=== PATIENT | female | born 1935 | race Caucasian/White ===

== ENCOUNTER 2020-09-25 12:43 | Observation (INO) | payer MEDICARE, OTHER, SELFPAY ==
[2020-09-25] VITALS (10 sets, daily range): BP systolic 138–187; BP diastolic 51–85; PULSE 48–62; RESP 16–18; TEMP 36.4–36.9; O2SAT 96–100; BMI 31.3
--- NOTE | 2020-09-25 13:00 | ECG_ITS ---
Test Reason : DIZZ Blood Pressure : / mmHG Vent. Rate : 047 BPM Atrial Rate : 047 BPM P-R Int : 148 ms QRS Dur : 116 ms QT Int : 468 ms P-R-T Axes : 014 -30 019 degrees QTc Int : 414 ms Sinus bradycardia Left axis deviation Incomplete left bundle branch block ST & T wave abnormality, consider anterolateral ischemia Abnormal ECG When compared with ECG of 29-FEB-2020 15:32, No significant changes seen Referred By: Mary Monae Electronically Signed By:NABEEL OTOOLE MD
--- NOTE | 2020-09-25 13:00 | XR_ITS ---
EXAMINATION: XR CHEST CLINICAL INFORMATION: Syncope COMPARISON: Previous chest x-ray February 2018 TECHNIQUE: Frontal view of the chest was obtained. FINDINGS: The cardiac and mediastinal contours are stable. The lungs are clear. There is no pleural effusion or pneumothorax. There are degenerative changes of the spine. XR/XR chest 1V IMPRESSION: No evidence for acute disease in the chest.
--- NOTE | 2020-09-25 13:01 | CT_ITS ---
EXAMINATION: CT HEAD WITHOUT CONTRAST CLINICAL INFORMATION: Syncope, secondary fall, trauma COMPARISON: CT head noncontrast 02/29/2020 TECHNIQUE: Contiguous axial imaging was performed from the skull base to vertex without intravenous administration of contrast. Additional 2-D coronal and sagittal reformatted images are generated on the CT workstation and uploaded to PACS. This CT examination was performed using dose optimization techniques as appropriate, variously including the following: *Automated exposure control *Adjustment of mA and/or kV according to patient size (this includes techniques or standardized protocols for targeted exams where dose is matched to indication/reason for exam; i.e. extremities or head) *Use of iterative reconstruction technique DLP: 686 mGy-cm FINDINGS: There is no intracranial hemorrhage, hematoma, or extra-axial fluid collection. The ventricles are normal in size. There is no hydrocephalus, edema, or mass effect. The coronel-white matter again shows some periventricular white matter gliosis adjacent to the frontal horns and ventricular atria similar to prior exam. There is no visible acute territorial infarct or mass lesion. The orbits are unremarkable. The calvarium appears intact. There is no pneumocephalus or orbital emphysema. The visualized sinuses and middle ears and mastoid air cells show no significant mucosal thickening. There are no air-fluid levels. CT/CT head/brain wo con IMPRESSION: No acute intracranial abnormality.
--- NOTE | 2020-09-25 13:02 | ED.SYNCOPE ---
HPI - Syncope General Chief Complaint: Altered Mental Status Stated Complaint: SYNCOPE Time Seen by Provider: 09/25/20 12:45 Source: patient and EMS Mode of arrival: EMS Limitations: no limitations History of Present Illness HPI narrative: 85 yo female with past medical history of dementia, mood disorder, hypothroidism, irregular heart beat, hypertension, GERD, high cholesterol, RLS here with syncope. Per family they were in another room when they heard a thump. They found the patient lying on the ground. The patient tells me she felt faint and then has no other memory of what happened. She does not remember if she had any headache, palpitations, chest pain or shortness of breath prior to the fall. She has no complaints now. Per family the patient lives at home with her . He has difficulty seeing and the patient has dementia. There has been concern in the past that they may need additional help in the home. The daughter tells me that she is also worried the patient may be getting over or under medicated as she often finds loose pills around the home. MD complaint: felt faint Prodromal symptoms: lightheaded Witnessed: No Context: during exertion Injuries sustained associated with event: none Current symptoms: none Treatments prior to arrival: none Related Data Home Medications Medication Instructions Recorded Confirmed amlodipine 5 mg PO BEDTIME 09/25/20 09/25/20 aspirin 81 mg PO DAILY 09/25/20 09/25/20 veclcnrfkk-mehrlaxjwirbt-gqlf 1 tab PO Q4H PRN 09/25/20 09/25/20 [Fioricet] cholecalciferol (vitamin D3) 25 mcg PO DAILY 09/25/20 09/25/20 [Vitamin D3] divalproex 250 mg PO BID 09/25/20 09/25/20 donepezil 10 mg PO BEDTIME 09/25/20 09/25/20 ginkgo biloba 120 mg PO BID 09/25/20 09/25/20 glucosamine-chondroitin 1 cap PO DAILY 09/25/20 09/25/20 levothyroxine 112 mcg PO DAILY@0630 09/25/20 09/25/20 losartan 100 mg PO DAILY 09/25/20 09/25/20 melatonin 30 mg PO BEDTIME 09/25/20 09/25/20 memantine 10 mg PO BID 09/25/20 09/25/20 metoprolol tartrate 100 mg PO BID 09/25/20 09/25/20 multivitamin 1 tab PO DAILY 09/25/20 09/25/20 omeprazole 20 mg PO BID@0630,1630 09/25/20 09/25/20 quetiapine 25 mg PO DAILY 09/25/20 09/25/20 quetiapine 100 mg PO BEDTIME 09/25/20 09/25/20 ropinirole 1.5 mg PO BEDTIME 09/25/20 09/25/20 sertraline 50 mg PO BEDTIME 09/25/20 09/25/20 simvastatin 20 mg PO BEDTIME 09/25/20 09/25/20 Allergies Allergy/AdvReac Type Severity Reaction Status Date / Time penicillin V Allergy Unknown swelling Verified 10/20/18 00:00 Penicillins [PENICILLINS] Allergy Unknown UNKNOWN Unverified 06/21/20 14:36 procaine [From NOVOCAIN] Allergy Unknown UNKNOWN Unverified 06/21/20 14:36 Novocain Allergy Unknown swelling Uncoded 10/20/18 00:00 Review of Systems Review of Systems: Yes all other systems are reviewed and are negative Constitutional: Constitutional: Reports no additional constitutional complaints, Denies body ache(s), Denies chills, Denies fever(s), Denies headache(s) and Denies weakness Eyes: Eyes: Reports no additional eye complaints and Denies change in vision ENT: Reports system reviewed and no additional complaints, except as documented, Denies dizziness, Denies headache(s), Denies nasal congestion, Denies nasal discharge and Denies neck pain Cardiovascular: Cardiovascular: Reports no additional cardiovascular complaints, Denies chest pain, Denies leg edema and Denies dyspnea Respiratory: Respiratory: Reports no additional respiratory complaints, Denies cough and Denies dyspnea Gastrointestinal: Gastrointestinal: Reports no additional gastrointestinal complaints, Denies abdominal pain, Denies diarrhea, Denies nausea and Denies vomiting Genitourinary: Genitourinary: Reports no additional female genitourinary complaints and Denies urinary incontinence Musculoskeletal: Musculoskeletal: Reports no additional musculoskeletal complaints, Denies back pain, Denies arthralgias, Denies joint swelling, Denies neck pain, Denies numbness and Denies tingling Integumentary/Breasts: Skin/Breast: Reports system reviewed and no additional complaints, except as docu and Denies rash Neurologic: Reports system reviewed and no additional complaints, except as documented, Denies Abnormal speech present, Denies dizziness, Denies headache(s), Denies numbness, Denies tingling and Denies weakness Comments: lightheaded PMFSH Past Medical History Medical History (Updated 09/25/20 @ 17:17 by Mary Monae NP) Anxiety Dementia GERD (gastroesophageal reflux disease) High cholesterol Hypertension Hypothyroidism Mood disorder RLS (restless legs syndrome) Social History Social History Advance Directives: No Advance Directives Information Provided: No Physical Exam Vital Signs: Vital Signs: Last Vital Signs Temp 97.7 F 09/25/20 17:04 Pulse 48 L 09/25/20 17:04 Resp 16 09/25/20 15:12 BP 142/62 H 09/25/20 17:04 Pulse Ox 98 09/25/20 17:04 Body Mass Index 31.3 Const: Other: Drowsy but answers questions and opens eyes when called General: cooperative, healthy appearing, comfortable and no acute distress Orientation/consciousness: patient oriented x3 Limitations: no limitations HENMT: Head: Yes normal to inspection Ears: hearing grossly normal bilaterally General nose exam: Normal external nose present Face and sinus: Yes normal facial exam Mouth: Normal oral and palatal mucosa present Throat: Yes posterior oropharynx normal Eyes: General: appearance normal, both eyes and all related structures Pupils: Equal, round and reactive pupils present Neck: Neck: Yes normal visual inspection Chest: Chest palpation & inspection: normal inspection of the chest Resp: Effort & Inspection: normal respiratory effort Auscultation: clear to auscultation bilaterally Cardio: Rate: regular rate Rhythm: regular rhythm Peripheral pulses: Peripheral pulses 2+ throughout GI: Inspection: Yes normal to inspection Palpation (GI): Soft to palpation and nontender Auscultation: normal bowel sounds Back/Spine/Pelvis: Thoracic/Lumbar Spine: thoracic and lumbar spine normal to inspection Skin: General skin exam: no rashes or lesions noted Neuro: General: patient oriented x3, no focal motor deficits, normal sensation to monofilament and Unable to assess gait Cranial nerves: Yes CN's II-XII intact bilaterally, Yes Equal, round and reactive pupils present, Yes Bilaterally intact EOM present, Yes Nystagmus not present, Yes Normal facial strength present and Yes Midline tongue present Cognition (Neuro): normal cognition Speech: No Abnormal speech present Gait exam (Neuro): Unable to assess gait Motor exam (neuro): 5/5 motor strength present throughout Sensory Exam: Normal double simultaneous stimulation for sensation Deep tendon reflexes (DTR's): Right patellar reflex intensity grade: 2+ and Left patellar reflex intensity grade: 2+ Extrem: General: Yes normal to inspection Course Course Course Narrative: 85-year-old female here with reported syncopal episode. On arrival the patient is drowsy but arouses to verbal. She is neurologically intact with no complaints. She tells me she felt faint and then does not recall what happened. She was found by family on the ground after hearing a fall. Also concern from family that patient may need either additional help in the home or placement. Concern for medication management and over vs undermedication. Will need labs, UA, EKG, chest x-ray, CT head and neck. Will likely need admission. 1405-EKG shows diffuse T wave inversions. Add on d dimer to r/o PE. Troponin pending. No chest pain. 1512-elevated D-dimer. CTA to rule out PE ordered. Troponin initially 8.0. Repeat 3 hour troponin ordered. 1720-CTA negative. Repeat troponin pending. UA and orthostatics negative. Patient will need admission for syncope workup. Discussed with Elizabeth HATCH who accepted admission. Family was updated. MDM - Syncope MDM Narrative Medical decision making narrative: Orthostatic hypotension, ACS, CVA vs ICH, anemia, electrolyte abnormality, polypharmacy, pe Less likely PE with negative CTA, Less likely CVA with no neurological deficits. Less likely ICH with negative CT head. Less likely anemia with normal labs. Less likely electrolyte abnormality with normal labs. Less likely ACS with unchanged EKG, no reports of chest pain and troponin x2 are unchanged. Could also consider polypharmacy as there was concern from family. Medical Records Attestation: I reviewed the patient's medical records. Lab Data Attestation: I reviewed the patient's lab results. Result diagrams: 09/25/20 13:44 09/25/20 13:44 Labs: Lab Results 09/25/20 09/25/20 12 Range/Units 13:44 13:44 13:44 WBC 6.0 (4.8-10.8) X10*3/uL RBC 4.12 L (4.20-5.50) X10*6/uL Hgb 12.6 (12.0-16.0) g/dl Hct 37.4 (37-47) % MCV 90.8 (80-98) fL MCH 30.6 (27.0-33.0) pg MCHC 33.7 (31.0-35.0) g/dl RDW 13.5 (11.0-16.0) % Plt Count 220 (160-400) X10*3/uL MPV 9.6 (9.4-12.3) fL Immature Gran % (Auto) 0.2 (0.0-0.4) % Neut % (Auto) 61.8 (45-73) % Lymph % (Auto) 21.0 (20-40) % [place] % (Auto) 9.4 (2-11) % Eos % (Auto) 6.9 H (0-4) % Baso % (Auto) 0.7 (0-2) % Lymph # (Auto) 1.3 (1.2-4.9) X10*3/uL [place] # (Auto) 0.6 (0.1-1.2) X10*3/uL Eos # (Auto) 0.4 (0.0-0.4) X10*3/uL Baso # (Auto) 0.0 (0.0-0.2) X10*3/uL Abs Immat Gran (auto) 0.01 (0.00-0.03) X10*3/uL Absolute Neuts (auto) 3.7 (2.0-8.3) X10*3/uL Absolute Nucleated RBC 0.000 (0.0-0.012) X10*3/uL Nucleated RBC % (auto) 0.0 (0.0-0.2) /100WBC PT 12.5 (10.8-13.0) SEC INR 1.1 (0.9-1.1) D-Dimer 427 NG/ML Sodium 134 L (135-145) mmol/L Potassium 4.1 (3.3-5.1) mmol/l Chloride 99 (96-108) mmol/L Carbon Dioxide 29 (22-29) mmol/L Anion Gap 10 L (12-20) BUN 11 (9-16) mg/dL Creatinine 0.86 (0.5-1.4) mg/dL Estim Creat Clear Calc 53.4 Estimated GFR > 60 Random Glucose 110 (60-115) mg/dL Calcium 8.5 (8.4-10.2) mg/dL Magnesium 2.0 (1.6-2.6) mg/dL Total Bilirubin 1.0 (0.0-1.0) mg/dL Direct Bilirubin 0.5 (0.0-0.5) mg/dL AST 40 H (5-31) U/L ALT 21 (0-31) U/L Alkaline Phosphatase 51 (39-117) U/L Troponin I High Sens (<3.5-17.0) ng/L Total Protein 6.5 (6.5-8.0) g/dL Albumin 3.7 (3.5-5.0) g/dL Urine Color Urine Appearance Urine pH (5.0-8.0) Ur Specific Hunt (1.005-1.025) Urine Protein (NEG-TRACE) MG/DL Urine Glucose (UA) (NEG) MG/DL Urine Ketones (NEG) MG/DL Urine Blood (NEG) Urine Nitrite (NEG) Ur Leukocyte Esterase (NEG) Salicylates < 5.0 L (15-30) mg/dL Acetaminophen < 1 (<30) mcg/mL Valproic Acid (50.0-100.0) mcg/mL COVID-19 (EDU) (Negative) COVID-19 Clin Com 09/25/20 09/25/20 09/25/20 Range/Units 13:44 13:44 13:44 WBC (4.8-10.8) X10*3/uL RBC (4.20-5.50) X10*6/uL Hgb (12.0-16.0) g/dl Hct (37-47) % MCV (80-98) fL MCH (27.0-33.0) pg MCHC (31.0-35.0) g/dl RDW (11.0-16.0) % Plt Count (160-400) X10*3/uL MPV (9.4-12.3) fL Immature Gran % (Auto) (0.0-0.4) % Neut % (Auto) (45-73) % Lymph % (Auto) (20-40) % [place] % (Auto) (2-11) % Eos % (Auto) (0-4) % Baso % (Auto) (0-2) % Lymph # (Auto) (1.2-4.9) X10*3/uL [place] # (Auto) (0.1-1.2) X10*3/uL Eos # (Auto) (0.0-0.4) X10*3/uL Baso # (Auto) (0.0-0.2) X10*3/uL Abs Immat Gran (auto) (0.00-0.03) X10*3/uL Absolute Neuts (auto) (2.0-8.3) X10*3/uL Absolute Nucleated RBC (0.0-0.012) X10*3/uL Nucleated RBC % (auto) (0.0-0.2) /100WBC PT (10.8-13.0) SEC INR (0.9-1.1) D-Dimer NG/ML Sodium (135-145) mmol/L Potassium (3.3-5.1) mmol/l Chloride (96-108) mmol/L Carbon Dioxide (22-29) mmol/L Anion Gap (12-20) BUN (9-16) mg/dL Creatinine (0.5-1.4) mg/dL Estim Creat Clear Calc Estimated GFR Random Glucose (60-115) mg/dL Calcium (8.4-10.2) mg/dL Magnesium (1.6-2.6) mg/dL Total Bilirubin (0.0-1.0) mg/dL Direct Bilirubin (0.0-0.5) mg/dL AST (5-31) U/L ALT (0-31) U/L Alkaline Phosphatase (39-117) U/L Troponin I High Sens 8.0 (<3.5-17.0) ng/L Total Protein (6.5-8.0) g/dL Albumin (3.5-5.0) g/dL Urine Color Urine Appearance Urine pH (5.0-8.0) Ur Specific Hunt (1.005-1.025) Urine Protein (NEG-TRACE) MG/DL Urine Glucose (UA) (NEG) MG/DL Urine Ketones (NEG) MG/DL Urine Blood (NEG) Urine Nitrite (NEG) Ur Leukocyte Esterase (NEG) Salicylates (15-30) mg/dL Acetaminophen (<30) mcg/mL Valproic Acid 53.9 (50.0-100.0) mcg/mL COVID-19 (EDU) Negative (Negative) COVID-19 Clin Com See Note 09/25/20 09/25/20 Range/Units 15:24 17:38 WBC (4.8-10.8) X10*3/uL RBC (4.20-5.50) X10*6/uL Hgb (12.0-16.0) g/dl Hct (37-47) % MCV (80-98) fL MCH (27.0-33.0) pg MCHC (31.0-35.0) g/dl RDW (11.0-16.0) % Plt Count (160-400) X10*3/uL MPV (9.4-12.3) fL Immature Gran % (Auto) (0.0-0.4) % Neut % (Auto) (45-73) % Lymph % (Auto) (20-40) % [place] % (Auto) (2-11) % Eos % (Auto) (0-4) % Baso % (Auto) (0-2) % Lymph # (Auto) (1.2-4.9) X10*3/uL [place] # (Auto) (0.1-1.2) X10*3/uL Eos # (Auto) (0.0-0.4) X10*3/uL Baso # (Auto) (0.0-0.2) X10*3/uL Abs Immat Gran (auto) (0.00-0.03) X10*3/uL Absolute Neuts (auto) (2.0-8.3) X10*3/uL Absolute Nucleated RBC (0.0-0.012) X10*3/uL Nucleated RBC % (auto) (0.0-0.2) /100WBC PT (10.8-13.0) SEC INR (0.9-1.1) D-Dimer NG/ML Sodium (135-145) mmol/L Potassium (3.3-5.1) mmol/l Chloride (96-108) mmol/L Carbon Dioxide (22-29) mmol/L Anion Gap (12-20) BUN (9-16) mg/dL Creatinine (0.5-1.4) mg/dL Estim Creat Clear Calc Estimated GFR Random Glucose (60-115) mg/dL Calcium (8.4-10.2) mg/dL Magnesium (1.6-2.6) mg/dL Total Bilirubin (0.0-1.0) mg/dL Direct Bilirubin (0.0-0.5) mg/dL AST (5-31) U/L ALT (0-31) U/L Alkaline Phosphatase (39-117) U/L Troponin I High Sens 6.2 (<3.5-17.0) ng/L Total Protein (6.5-8.0) g/dL Albumin (3.5-5.0) g/dL Urine Color YELLOW Urine Appearance HAZY Urine pH 7.0 (5.0-8.0) Ur Specific Hunt 1.015 (1.005-1.025) Urine Protein TRACE (NEG-TRACE) MG/DL Urine Glucose (UA) NEG (NEG) MG/DL Urine Ketones 5 (NEG) MG/DL Urine Blood NEG (NEG) Urine Nitrite NEG (NEG) Ur Leukocyte Esterase NEG (NEG) Salicylates (15-30) mg/dL Acetaminophen (<30) mcg/mL Valproic Acid (50.0-100.0) mcg/mL COVID-19 (EDU) (Negative) COVID-19 Clin Com Imaging Data Ct head/neck: Attestation: I personally reviewed and interpreted this imaging study as follows: Radiologist's impression: EXAMINATION: CT CERVICAL SPINE WITHOUT CONTRAST CLINICAL INFORMATION: Syncope, fall, trauma COMPARISON: CT head 09/25/2020 TECHNIQUE: Multidetector volumetric CT imaging of the cervical spine is performed without contrast in the axial plane. Additional 2D reformatted coronal and sagittal images are generated on the CT workstation and uploaded to PACS. This CT examination was performed using dose optimization techniques as appropriate, variously including the following: *Automated exposure control *Adjustment of mA and/or kV according to patient size (this includes techniques or standardized protocols for targeted exams where dose is matched to indication/reason for exam; i.e. extremities or head) *Use of iterative reconstruction technique DLP: 347 mGy-cm FINDINGS: There is no vertebral compression or visible fracture. Accentuated trabecular markings seen within the dens on sagittal reformatted image without cortical disruption or fracture demonstrated within the dens on the axial or coronal images. There is no spondylolisthesis or prevertebral soft tissue swelling. The craniocervical junction appears normal. There are degenerative changes between anterior arch C1 and the dens. No associated soft tissue swelling. There are mild degenerative changes in the facets. There is variable spurring mid to lower cervical spine with borderline disc narrowing C5-C6 and C6-C7. There is no apical pneumothorax. CT/CT cervical spine wo con IMPRESSION: 1. No acute bony abnormality or prevertebral soft tissue swelling. 2. Mild multilevel degenerative changes. Chest x-ray: Attestation: I personally reviewed and interpreted this imaging study as follows: Radiologist's impression: EXAMINATION: XR CHEST CLINICAL INFORMATION: Syncope COMPARISON: Previous chest x-ray February 2018 TECHNIQUE: Frontal view of the chest was obtained. FINDINGS: The cardiac and mediastinal contours are stable. The lungs are clear. There is no pleural effusion or pneumothorax. There are degenerative changes of the spine. XR/XR chest 1V IMPRESSION: No evidence for acute disease in the chest. CTA chest: Attestation: I personally reviewed and interpreted this imaging study as follows: Radiologist's impression: EXAMINATION: CT ANGIOGRAM OF THE CHEST WITH AND WITHOUT CONTRAST (CT PULMONARY ANGIOGRAM FOR PE) CLINICAL INFORMATION: Reason for Exam elevated d dimer, sycope, r/o pe COMPARISON: Previous chest x-rays most recent from earlier the same day TECHNIQUE: Prior to contrast administration, noncontrast localization images were obtained. Subsequently, multidetector volumetric imaging was performed from the thoracic inlet to below the diaphragms following the administration of 65 mL Omnipaque 350 intravenous contrast. No contrast reaction reported Sagittal, coronal, and MIP oblique sagittal reformatted images were obtained on the CT workstation, uploaded to PACS, and reviewed. This CT examination was performed using dose optimization techniques as appropriate, variously including the following: *Automated exposure control *Adjustment of mA and/or kV according to patient size (this includes techniques or standardized protocols for targeted exams where dose is matched to indication/reason for exam; i.e. extremities or head) *Use of iterative reconstruction technique Total exam dose-length product 322 mGy-cm FINDINGS: QUALITY OF STUDY/CONTRAST BOLUS: Satisfactory. PULMONARY ARTERIES: No central or segmental pulmonary emboli. THORACIC AORTA: No aneurysm or dissection. LUNG: No focal consolidation, nodules or masses. PLEURA: No pleural effusion or pneumothorax. MEDIASTINUM: The heart is enlarged. No pericardial effusion. No hilar or mediastinal lymphadenopathy. No evidence of septal bowing or right heart strain. CHEST WALL/AXILLA: No axillary or internal mammary lymphadenopathy. OSSEOUS STRUCTURES: No acute or suspicious osseous abnormality. There are degenerative spine. UPPER ABDOMEN: The gallbladder has been removed. There is pneumobilia in the left lobe of the liver, question related to previous papillotomy. No reflux of contrast into the hepatic veins to suggest elevated right heart pressures. CT/CT angio chest PE protocol IMPRESSION: No evidence of pulmonary embolism. Enlarged heart. VTE: negative ECG Data Attestation: I personally reviewed and interpreted this ECG as follows: ECG interpretation date: 09/25/20 ECG interpretation time: 13:59 Interpretation: Sinus bradycardia rate 47, incomplete LBBB, T wave inversions in leads v1, v2, v3, v4, v6 Discharge Plan Discharge Clinical Impression: Syncope Qualifiers: Syncope type: unspecified Qualified Code(s): R55 - Syncope and collapse Patient Disposition: Admitted As Inpatient
--- NOTE | 2020-09-25 13:12 | CT_ITS ---
EXAMINATION: CT CERVICAL SPINE WITHOUT CONTRAST CLINICAL INFORMATION: Syncope, fall, trauma COMPARISON: CT head 09/25/2020 TECHNIQUE: Multidetector volumetric CT imaging of the cervical spine is performed without contrast in the axial plane. Additional 2D reformatted coronal and sagittal images are generated on the CT workstation and uploaded to PACS. This CT examination was performed using dose optimization techniques as appropriate, variously including the following: *Automated exposure control *Adjustment of mA and/or kV according to patient size (this includes techniques or standardized protocols for targeted exams where dose is matched to indication/reason for exam; i.e. extremities or head) *Use of iterative reconstruction technique DLP: 347 mGy-cm FINDINGS: There is no vertebral compression or visible fracture. Accentuated trabecular markings seen within the dens on sagittal reformatted image without cortical disruption or fracture demonstrated within the dens on the axial or coronal images. There is no spondylolisthesis or prevertebral soft tissue swelling. The craniocervical junction appears normal. There are degenerative changes between anterior arch C1 and the dens. No associated soft tissue swelling. There are mild degenerative changes in the facets. There is variable spurring mid to lower cervical spine with borderline disc narrowing C5-C6 and C6-C7. There is no apical pneumothorax. CT/CT cervical spine wo con IMPRESSION: 1. No acute bony abnormality or prevertebral soft tissue swelling. 2. Mild multilevel degenerative changes.
--- NOTE | 2020-09-25 13:25 | PC.NURSE ---
Daughter Lexy Samantha [phone] Son Thad [phone]
[2020-09-25 13:52] LABS: MANUAL DIFF FLAG NO
[2020-09-25 13:53] LABS: Basophils Percent Auto 0.7 % (0-2); Eosinophils Absolute Auto 0.4 X10*3/uL (0.0-0.4); Eosinophils Percent Auto 6.9 % (0-4); Hematocrit 37.4 % (37-47); Hemoglobin 12.6 g/dl (12.0-16.0); Imm Gran Abs Auto 0.01 X10*3/uL (0.00-0.03); Imm Gran Pct Auto 0.2 % (0.0-0.4); Lymphocytes Absolute Auto 1.3 X10*3/uL (1.2-4.9); Mean Corpuscular HGB Conc 33.7 g/dl (31.0-35.0); Mean Corpuscular Hemoglobin 30.6 pg (27.0-33.0); Mean Corpuscular Volume 90.8 fL (80-98); Mean Platelet Volume 9.6 fL (9.4-12.3); Monocytes Absolute Auto 0.6 X10*3/uL (0.1-1.2); Monocytes Percent Auto 9.4 % (2-11); Neutrophils Absolute Auto 3.7 X10*3/uL (2.0-8.3); Neutrophils Percent Auto 61.8 % (45-73); Platelet Count 220 X10*3/uL (160-400); Red Blood Count 4.12 X10*6/uL (4.20-5.50); Red Cell Distribution Width 13.5 % (11.0-16.0)
[2020-09-25 13:57] LABS: INTERNATIONAL NORM RATIO 1.1 (0.9-1.1); Prothrombin Time 12.5 SEC (10.8-13.0)
--- NOTE | 2020-09-25 14:01 | MHC.CM.ED ---
Patient currently in the ER and will be admitted to the hospital. Per APURVA Finley, patient's daughter, Lexy is concerned that patient is not able to administer her medications properly. Patient was active with [facility] last visit. T/W reached out to [facility]. She was discharged from their service in August. [facility] has been asked to follow for discharge needs. Lexy can be reached via telephone at [phone]. Continue to monitor for d/c needs.
[2020-09-25 14:18] LABS: Acetaminophen LAB < 1 mcg/mL (<30); Alanine Aminotransferase 21 U/L (0-31); Albumin Level 3.7 g/dL (3.5-5.0); Alkaline Phosphatase 51 U/L (39-117); Anion Gap 10 (12-20); Aspartate Amino Transferase 40 U/L (5-31); Bilirubin Direct 0.5 mg/dL (0.0-0.5); Blood Urea Nitrogen 11 mg/dL (9-16); Calcium 8.5 mg/dL (8.4-10.2); Carbon Dioxide 29 mmol/L (22-29); Chloride 99 mmol/L (96-108); Creatinine Clr Calc Pharmacy 53.4; Estimated Glomerular Filt Rate > 60; Glucose Random 110 mg/dL (60-115); Potassium 4.1 mmol/l (3.3-5.1); Salicylate < 5.0 mg/dL (15-30); Sodium 134 mmol/L (135-145); Total Protein 6.5 g/dL (6.5-8.0)
[2020-09-25 14:25] LABS: Valproate 53.9 mcg/mL (50.0-100.0)
[2020-09-25 14:39] LABS: COVID-19 Test Negative (Negative)
[2020-09-25 14:59] LABS: D Dimer 427 NG/ML
--- NOTE | 2020-09-25 15:09 | CT_ITS ---
EXAMINATION: CT ANGIOGRAM OF THE CHEST WITH AND WITHOUT CONTRAST (CT PULMONARY ANGIOGRAM FOR PE) CLINICAL INFORMATION: Reason for Exam elevated d dimer, sycope, r/o pe COMPARISON: Previous chest x-rays most recent from earlier the same day TECHNIQUE: Prior to contrast administration, noncontrast localization images were obtained. Subsequently, multidetector volumetric imaging was performed from the thoracic inlet to below the diaphragms following the administration of 65 mL Omnipaque 350 intravenous contrast. No contrast reaction reported Sagittal, coronal, and MIP oblique sagittal reformatted images were obtained on the CT workstation, uploaded to PACS, and reviewed. This CT examination was performed using dose optimization techniques as appropriate, variously including the following: *Automated exposure control *Adjustment of mA and/or kV according to patient size (this includes techniques or standardized protocols for targeted exams where dose is matched to indication/reason for exam; i.e. extremities or head) *Use of iterative reconstruction technique Total exam dose-length product 322 mGy-cm FINDINGS: QUALITY OF STUDY/CONTRAST BOLUS: Satisfactory. PULMONARY ARTERIES: No central or segmental pulmonary emboli. THORACIC AORTA: No aneurysm or dissection. LUNG: No focal consolidation, nodules or masses. PLEURA: No pleural effusion or pneumothorax. MEDIASTINUM: The heart is enlarged. No pericardial effusion. No hilar or mediastinal lymphadenopathy. No evidence of septal bowing or right heart strain. CHEST WALL/AXILLA: No axillary or internal mammary lymphadenopathy. OSSEOUS STRUCTURES: No acute or suspicious osseous abnormality. There are degenerative spine. UPPER ABDOMEN: The gallbladder has been removed. There is pneumobilia in the left lobe of the liver, question related to previous papillotomy. No reflux of contrast into the hepatic veins to suggest elevated right heart pressures. CT/CT angio chest PE protocol IMPRESSION: No evidence of pulmonary embolism. Enlarged heart. VTE: negative
[2020-09-25 15:42] LABS: Glucose Urine UA NEG (NEG); Leukocyte Esterase Urine NEG (NEG); Nitrite Urine NEG (NEG); Specific Gravity - Urine 1.015 (1.005-1.025); Urine Blood NEG (NEG); Urine Ketones 5 MG/DL (NEG); Urine Protein TRACE MG/DL (NEG-TRACE)
[2020-09-25 15:51] LABS: Appearance Urine HAZY; Color Urine YELLOW
[2020-09-25] MEDS: iohexoL 350 MG/ML 100 ML INFUS..BTL IV (15:57)
[2020-09-25 18:19] LABS: Troponin-I High Sensitivity 6.2 ng/L (<3.5-17.0)
--- NOTE | 2020-09-25 18:36 | PM.EVENT ---
Event Note Date of Service: 09/25/20 Event Note: Patient seen and examined independently and was present during [place] portion of E/M service. Agree with midlevel's history, physical, assessment, and plan. 85F presented with syncope sycnope tele, hold beta ricardo, orthostatics, echo, ?polypharmacy
--- NOTE | 2020-09-25 21:50 | PC.NURSE ---
NURSE TO NURSE GIVEN TO GERARDO MIXON.
[2020-09-25] MEDS: Heparin Sodium,Porcine 5,000 UNIT/ML VIAL 5000 UNIT SUBCUT (23:20)
[2020-09-25] MEDS: QUEtiapine Fumarate 100 MG TABLET PO (23:21)
[2020-09-25] MEDS: rOPINIRole HCL 0.5 MG TABLET 1.5 MG PO (23:21)
[2020-09-25] MEDS: Divalproex Sodium 250 MG TABLET.DR PO (23:21)
[2020-09-25] MEDS: Donepezil HCl 10 MG TABLET PO (23:21)
[2020-09-25] MEDS: Sertraline HCL 50 MG TABLET PO (23:21)
[2020-09-25] MEDS: Memantine HCl 10 MG TABLET PO (23:21)
[2020-09-25] MEDS: 0.9 % Sodium Chloride Flush 3 ML SYRINGE IVFLUSH (23:22)
[2020-09-25] MEDS: amLODIPine Besylate 5 MG TABLET PO (23:28)
[2020-09-26] VITALS (7 sets, daily range): BP systolic 119–179; BP diastolic 59–82; PULSE 56–68; RESP 18–20; TEMP 36.4–36.7; O2SAT 95–96
[2020-09-26] MEDS: Levothyroxine Sodium 112 MCG TABLET PO (06:02)
[2020-09-26] MEDS: Omeprazole 20 MG CAPSULE.DR PO (06:02)
[2020-09-26 06:33] LABS: MANUAL DIFF FLAG NO
[2020-09-26 06:53] LABS: Basophils Percent Auto 0.4 % (0-2); Eosinophils Absolute Auto 0.5 X10*3/uL (0.0-0.4); Eosinophils Percent Auto 6.4 % (0-4); Hematocrit 35.4 % (37-47); Hemoglobin 12.2 g/dl (12.0-16.0); Imm Gran Abs Auto 0.01 X10*3/uL (0.00-0.03); Imm Gran Pct Auto 0.1 % (0.0-0.4); Lymphocytes Absolute Auto 1.7 X10*3/uL (1.2-4.9); Lymphocytes Percent Auto 23.2 % (20-40); Mean Corpuscular HGB Conc 34.5 g/dl (31.0-35.0); Mean Corpuscular Hemoglobin 31.3 pg (27.0-33.0); Mean Corpuscular Volume 90.8 fL (80-98); Mean Platelet Volume 10.8 fL (9.4-12.3); Monocytes Absolute Auto 0.9 X10*3/uL (0.1-1.2); Monocytes Percent Auto 12.2 % (2-11); Neutrophils Absolute Auto 4.1 X10*3/uL (2.0-8.3); Neutrophils Percent Auto 57.7 % (45-73); Platelet Count 174 X10*3/uL (160-400); Red Cell Distribution Width 13.3 % (11.0-16.0); White Blood Count 7.1 X10*3/uL (4.8-10.8)
[2020-09-26 07:06] LABS: Anion Gap 12 (12-20); Blood Urea Nitrogen 9 mg/dL (9-16); Calcium 8.2 mg/dL (8.4-10.2); Carbon Dioxide 25 mmol/L (22-29); Chloride 103 mmol/L (96-108); Creatinine Clr Calc Pharmacy 69.6; Estimated Glomerular Filt Rate > 60; Glucose Random 95 mg/dL (60-115); Potassium 3.7 mmol/l (3.3-5.1); Sodium 136 mmol/L (135-145)
--- NOTE | 2020-09-26 08:42 | MHC.CM.PN ---
Patient is here with AMS, and a history of Dementia; CM spoke with /Tony @ [phone]. Patient lives in a house with her and was receiving MOWs. Patient was functionally independent and required no DME to assist with mobility. The goal for dc is for Patient to return home and CM has initiated and will follow for dc planning. G[place] addressed with Tony and the original will be mailed to him and a copy has been placed on the chart.PCP is Dr. Lito Lopez.Daughter/Lexy @ [phone] is the HCP.
[2020-09-26] MEDS: 0.9 % Sodium Chloride Flush 3 ML SYRINGE IVFLUSH (09:21)
[2020-09-26] MEDS: QUEtiapine Fumarate 25 MG TABLET PO (09:22)
[2020-09-26] MEDS: Aspirin 81 MG TAB.CHEW PO (09:22)
[2020-09-26] MEDS: Losartan Potassium 50 MG TABLET 100 MG PO (09:22)
[2020-09-26] MEDS: Cholecalciferol (Vitamin D3) 25 MCG TABLET PO (09:22)
[2020-09-26] MEDS: Divalproex Sodium 250 MG TABLET.DR PO (09:22)
[2020-09-26] MEDS: Memantine HCl 10 MG TABLET PO (09:22)
[2020-09-26] MEDS: Multivitamin TABLET 1 TAB PO (09:22)
--- NOTE | 2020-09-26 10:16 | PM.DS ---
DS: Providers Provider Date of admission: 09/25/20 18:37 Primary care physician: Lito Lopez MD DS: Diagnosis Discharge Diagnosis (1) Syncope: Status: Acute DS: Medications Discharge Medications Home Medications: Home Medications Medication Instructions Recorded Confirmed amlodipine 5 mg PO BEDTIME 09/25/20 09/25/20 aspirin 81 mg PO DAILY 09/25/20 09/25/20 mprjxuvuqg-zffnzzgxlrisu-lcnl 1 tab PO Q4H PRN 09/25/20 09/25/20 cholecalciferol (vitamin D3) 25 mcg PO DAILY 09/25/20 09/25/20 [Vitamin D3] divalproex 250 mg PO BID 09/25/20 09/25/20 donepezil 10 mg PO BEDTIME 09/25/20 09/25/20 ginkgo biloba 120 mg PO BID 09/25/20 09/25/20 glucosamine-chondroitin 1 cap PO DAILY 09/25/20 09/25/20 levothyroxine 112 mcg PO DAILY@0630 09/25/20 09/25/20 losartan 100 mg PO DAILY 09/25/20 09/25/20 melatonin 30 mg PO BEDTIME 09/25/20 09/25/20 memantine 10 mg PO BID 09/25/20 09/25/20 multivitamin 1 tab PO DAILY 09/25/20 09/25/20 omeprazole 20 mg PO BID@0630,1630 09/25/20 09/25/20 quetiapine 25 mg PO DAILY 09/25/20 09/25/20 quetiapine 100 mg PO BEDTIME 09/25/20 09/25/20 ropinirole 1.5 mg PO BEDTIME 09/25/20 09/25/20 sertraline 50 mg PO BEDTIME 09/25/20 09/25/20 simvastatin 20 mg PO BEDTIME 09/25/20 09/25/20 DS: Summary Hospital Course Hospital Course: Patient was monitor after syncopal event. telemetry only showed some sinus bradycardia in the 40s, was possibly the cause of her syncope, daughter believes may have accidently given extra dose of medications. will conitniue metoprolol. but should monitor heart rate at home. Echo was unremarkable. Patient no further events and will be discharged home. Time Spent with Patient Time attestation: Total time spent providing and/or coordinating discharge services: Physical Exam Vital Signs: Vital Signs: Last Vital Signs Temp 97.8 F 09/26/20 08:00 Pulse 68 09/26/20 09:22 Resp 20 09/26/20 08:00 BP 119/69 09/26/20 09:22 Pulse Ox 95 09/26/20 08:00 Body Mass Index 31.3 General: AO X 3, no acute distress Resp: CTA bilateral CVS: S1,S2,RRR GI: soft, non tender, non distended Neuro: motor grossly intact Psych: appropriate affect DS: Data Data Completed and Pending Labs on day of discharge: 09/25/20 13:00 ECG 12 lead EKG Stat EKG Documentation DIRECTED IV insert/maintain .Now XR chest 1V Stat 09/25/20 13:01 CT head/brain wo con Stat 09/25/20 13:12 CT cervical spine wo con Stat 09/25/20 13:44 Acetaminophen LAB Stat Basic Metabolic Panel Stat COVID-19 ID NOW (Simmons) Stat Complete Blood Count Auto Diff Stat D Dimer Stat Liver Panel Stat Magnesium Stat Prothrombin Time INR Stat Salicylate Stat Troponin-I High Sensitivity Stat Valproate Stat 09/25/20 14:52 Add Laboratory Test Stat 09/25/20 15:09 CT angio chest PE protocol Stat 09/25/20 15:24 UA CC w/rflx Micro + Cult Stat 09/25/20 15:56 iohexoL 350 MG/ML [Omnipaque 350 MG/ML] 100 ml IV ONCE ONE 09/25/20 17:38 Troponin-I High Sensitivity Stat 09/25/20 18:29 Transfer Order Routine 09/25/20 22:26 IV insert/maintain Q4HR 09/26/20 06:03 Basic Metabolic Panel DAILY@0600 Complete Blood Count Auto Diff DAILY@0600 Laboratory Last Values WBC 7.1 X10*3/uL (4.8-10.8) 09/26/20 06:03 RBC 3.90 X10*6/uL (4.20-5.50) L 09/26/20 06:03 Hgb 12.2 g/dl (12.0-16.0) 09/26/20 06:03 Hct 35.4 % (37-47) L 09/26/20 06:03 MCV 90.8 fL (80-98) 09/26/20 06:03 MCH 31.3 pg (27.0-33.0) 09/26/20 06:03 MCHC 34.5 g/dl (31.0-35.0) 09/26/20 06:03 RDW 13.3 % (11.0-16.0) 09/26/20 06:03 Plt Count 174 X10*3/uL (160-400) 09/26/20 06:03 MPV 10.8 fL (9.4-12.3) 09/26/20 06:03 Immature Gran % (Auto) 0.1 % (0.0-0.4) 09/26/20 06:03 Neut % (Auto) 57.7 % (45-73) 09/26/20 06:03 Lymph % (Auto) 23.2 % (20-40) 09/26/20 06:03 [place] % (Auto) 12.2 % (2-11) H 09/26/20 06:03 Eos % (Auto) 6.4 % (0-4) H 09/26/20 06:03 Baso % (Auto) 0.4 % (0-2) 09/26/20 06:03 Lymph # (Auto) 1.7 X10*3/uL (1.2-4.9) 09/26/20 06:03 [place] # (Auto) 0.9 X10*3/uL (0.1-1.2) 09/26/20 06:03 Eos # (Auto) 0.5 X10*3/uL (0.0-0.4) H 09/26/20 06:03 Baso # (Auto) 0.0 X10*3/uL (0.0-0.2) 09/26/20 06:03 Abs Immat Gran (auto) 0.01 X10*3/uL (0.00-0.03) 09/26/20 06:03 Absolute Neuts (auto) 4.1 X10*3/uL (2.0-8.3) 09/26/20 06:03 Absolute Nucleated RBC 0.000 X10*3/uL (0.0-0.012) 09/26/20 06:03 Nucleated RBC % (auto) 0.0 /100WBC (0.0-0.2) 09/26/20 06:03 PT 12.5 SEC (10.8-13.0) 09/25/20 13:44 INR 1.1 (0.9-1.1) 09/25/20 13:44 D-Dimer 427 NG/ML 09/25/20 13:44 Sodium 136 mmol/L (135-145) 09/26/20 06:03 Potassium 3.7 mmol/l (3.3-5.1) 09/26/20 06:03 Chloride 103 mmol/L (96-108) 09/26/20 06:03 Carbon Dioxide 25 mmol/L (22-29) 09/26/20 06:03 Anion Gap 12 (-20) 09/26/20 06:03 BUN 9 mg/dL (9-16) 09/26/20 06:03 Creatinine 0.66 mg/dL (0.5-1.4) 09/26/20 06:03 Estim Creat Clear Calc 69.6 09/26/20 06:03 Estimated GFR > 60 09/26/20 06:03 Random Glucose 95 mg/dL (60-115) 09/26/20 06:03 Calcium 8.2 mg/dL (8.4-10.2) L 09/26/20 06:03 Magnesium 2.0 mg/dL (1.6-2.6) 09/25/20 13:44 Total Bilirubin 1.0 mg/dL (0.0-1.0) 09/25/20 13:44 Direct Bilirubin 0.5 mg/dL (0.0-0.5) 09/25/20 13:44 AST 40 U/L (5-31) H 09/25/20 13:44 ALT 21 U/L (0-31) 09/25/20 13:44 Alkaline Phosphatase 51 U/L (39-117) 09/25/20 13:44 Troponin I High Sens 6.2 ng/L (<3.5-17.0) 09/25/20 17:38 Total Protein 6.5 g/dL (6.5-8.0) 09/25/20 13:44 Albumin 3.7 g/dL (3.5-5.0) 09/25/20 13:44 Urine Color YELLOW 09/25/20 15:24 Urine Appearance HAZY 09/25/20 15:24 Urine pH 7.0 (5.0-8.0) 09/25/20 15:24 Ur Specific [place] 1.015 (1.005-1.025) 09/25/20 15:24 Urine Protein TRACE MG/DL (NEG-TRACE) 09/25/20 15:24 Urine Glucose (UA) NEG MG/DL (NEG) 09/25/20 15:24 Urine Ketones 5 MG/DL (NEG) 09/25/20 15:24 Urine Blood NEG (NEG) 09/25/20 15:24 Urine Nitrite NEG (NEG) 09/25/20 15:24 Ur Leukocyte Esterase NEG (NEG) 09/25/20 15:24 Salicylates < 5.0 mg/dL (15-30) L 09/25/20 13:44 Acetaminophen < 1 mcg/mL (<30) 09/25/20 13:44 Valproic Acid 53.9 mcg/mL (50.0-100.0) 09/25/20 13:44 COVID-19 (EDU) Negative (Negative) 09/25/20 13:44 COVID-19 Clin Com See Note 09/25/20 13:44 Discharge Plan Discharge Patient Disposition: Home, Self-Care Referrals: Lito Lopez MD [Primary Care Provider] - Discharge Medications: New metoprolol tartrate 100 mg tablet 100 mg PO BID Qty: 30 RF: 0 Continued multivitamin Tablet 1 tab PO DAILY RF: 0 quetiapine 25 mg Tablet 25 mg PO DAILY RF: 0 divalproex 250 mg Tablet,Delayed Release (Dr/Ec) 250 mg PO BID RF: 0 donepezil 10 mg Tablet 10 mg PO BEDTIME RF: 0 amlodipine 5 mg Tablet 5 mg PO BEDTIME RF: 0 quetiapine 100 mg Tablet 100 mg PO BEDTIME RF: 0 dejefkfpby-ogmypdmgwcvkj-hbpz 50-325-40 mg Tablet 1 tab PO Q4H PRN (Reason: Headache) RF: 0 simvastatin 20 mg Tablet 20 mg PO BEDTIME RF: 0 ropinirole 0.5 mg Tablet 1.5 mg PO BEDTIME RF: 0 omeprazole 20 mg Capsule,Delayed Release(Dr/Ec) 20 mg PO BID@0630,1630 RF: 0 aspirin 81 mg Tablet 81 mg PO DAILY RF: 0 losartan 100 mg Tablet 100 mg PO DAILY RF: 0 sertraline 50 mg Tablet 50 mg PO BEDTIME RF: 0 glucosamine-chondroitin 500-400 mg Capsule 1 cap PO DAILY RF: 0 levothyroxine 112 mcg Tablet 112 mcg PO DAILY@0630 RF: 0 ginkgo biloba 120 mg Tablet 120 mg PO BID RF: 0 memantine 10 mg Tablet 10 mg PO BID RF: 0 cholecalciferol (vitamin D3) [Vitamin D3] 25 mcg (1,000 unit) Tablet 25 mcg PO DAILY RF: 0 melatonin 10 mg Tablet 30 mg PO BEDTIME RF: 0 Discontinued metoprolol tartrate 100 mg Tablet 100 mg PO BID RF: 0 Discharge Orders: Discharge Order (Routine); Ordered 09/26/20 Ordered By: Cong Simpson Activity on Discharge: As tolerated Visit Report Forms: Patient Portal Discharge page Care Plan Goals: avoid syncope Health Concerns: syncope Plan of Treatment: continue metoprolol for now, but monitor HR, and contact MD if <50
--- NOTE | 2020-09-26 10:20 | MHC.CM.PN ---
Patient has been medically cleared for dc to home today, no services.
--- NOTE | 2020-09-26 10:50 | HP_ITS ---
DATE OF SERVICE: 09/25/2020 CHIEF COMPLAINT AND HISTORY OF PRESENT ILLNESS: An 85-year-old woman presenting to the ER after an episode of syncope. Apparently, she was walking to the front door and suddenly fell to the ground. She reported some dizziness prior to that. Her found her lying on the ground. She did not have any memory of what had happened. She denies any chest pain, shortness of breath, nausea, vomiting, or visual changes prior to the fall. In the ER, she was noted to be bradycardic with heart rate in the 40s. Labs all within acceptable limits. Her urinalysis was negative for infection. Her coronavirus PCR was negative. A chest CTA was negative for VTE. Cervical spine, head CT and chest x-ray all negative for any acute abnormality. She is currently resting in bed with no acute medical complaints. She will be assigned to observation for further management and workup of syncope. PAST MEDICAL HISTORY: 1. Hypertension. 2. Depression. 3. Dementia. 4. Hypothyroidism. 5. Hyperlipidemia. 6. Asthma. PAST SURGICAL HISTORY: 1. Right total knee arthroplasty. 2. Total abdominal hysterectomy with oophorectomy. 3. Carpal tunnel syndrome. 4. Cataract extraction. 5. Thyroidectomy. SOCIAL HISTORY: Lives with her . Denies any alcohol, tobacco, illicit drug use. ALLERGIES: ALLERGIES TO PENICILLIN AND PROCAINE. MEDICATIONS: 1. Amlodipine 5 mg at bedtime. 2. Aspirin 81 mg p.o. daily. 3. Fioricet 1 tab p.o. q.4 hours p.r.n. for headache. 4. Cholecalciferol 25 mcg p.o. daily. 5. Depakote 250 mg p.o. b.i.d. 6. Aricept 10 mg p.o. at bedtime. 7. Ginkgo biloba 120 mg p.o. b.i.d. 8. Glucosamine and chondroitin 1 cap p.o. daily. 9. Levothyroxine 112 mcg p.o. daily. 10. Losartan 100 mg p.o. daily. 11. Melatonin 30 mg p.o. at bedtime. 12. Memantine 10 mg p.o. b.i.d. 13. Metoprolol tartrate 100 mg p.o. b.i.d. 14. Multivitamin 1 tab p.o. daily. 15. Omeprazole 20 mg p.o. b.i.d. 16. Seroquel 25 mg p.o. daily. 17. Seroquel 100 mg p.o. at bedtime. 18. Ropinirole 1.5 mg p.o. at bedtime. 19. Sertraline 50 mg p.o. at bedtime. 20. Simvastatin 20 mg p.o. at bedtime. REVIEW OF SYSTEMS: CONSTITUTIONAL: Denies any recent fever, chills, or decrease in appetite. RESPIRATORY: Denies any shortness of breath, cough, or sputum production. CARDIOVASCULAR: Denies any chest pain, orthopnea, PND, or edema. GASTROINTESTINAL: Denies any dysphagia, abdominal pain, nausea, vomiting, or diarrhea. GENITOURINARY: Denies any dysuria, frequency, or hematuria. MUSCULOSKELETAL: Denies any joint pain or swelling. NEUROPSYCH: Denies any weakness or seizures. All other systems are reviewed and are negative. PHYSICAL EXAMINATION: CONSTITUTIONAL: Resting in bed. Appearing in no acute distress. VITAL SIGNS: 142/62, 48, 97.7, 98% on room air. SKIN: Intact. No rash or open sores. HEENT: Head is normocephalic, atraumatic. Eyes, pupils are PERRLA. Sclerae are anicteric. Mouth and throat: Mucous membranes are intact and moist. NECK: Supple. No lymphadenopathy. No JVD noted. CHEST: Clear to auscultation without wheezes, rhonchi, or rales. HEART: Regular rate and rhythm. Clear S1, S2. No murmurs, rubs, or gallops. ABDOMEN: Positive bowel sounds. Soft, nontender. No hepatomegaly or splenomegaly noted. NEURO: The patient is alert and oriented x3. Cranial nerves II through XII grossly intact without focal deficits. LABORATORY DATA: WBC 6.0, hemoglobin 12.6, hematocrit 37.4, and platelets 220. Sodium is 134, potassium 4.1, chloride is 99, BUN is 11, creatinine is 0.86. Coronavirus PCR is negative. Urinalysis negative. ASSESSMENT AND PLAN: An 85-year-old woman who is being admitted after a syncopal episode. 1. Syncope. Unknown etiology at this time. May be medication related as patient has been bradycardic and she is on a beta-ricardo. We will hold beta-ricardo for now, echocardiogram, monitor on telemetry now for any cardiac arrhythmia or sick sinus syndrome. 2. Hypertension. Stable blood pressure. We will continue amlodipine and losartan. 3. Depression. Continue home medications. 4. Dementia. Continue memantine and Aricept. 5. Hypothyroidism. Continue levothyroxine. 6. Gastroesophageal reflux disease. Continue PPI. 7. Deep vein thrombosis prophylaxis with heparin. 8. Case discussed with Dr. Simpson. 9. FULL CODE. KETTY Andrews MD JR/MODL / [id number]
--- NOTE | 2020-09-26 22:26 | CA_ITS ---
Transthoracic Echocardiogram Patient (Last, First, Middle): Charito Rizzo M Gender: Female Date of : 1935 Age: 85 Procedure Date: 09/26/2020 Procedure Type: Transthoracic Echocardiogram Location: [facility] [place] Height: 167.64 cm Weight: 88. kg BSA: 1.97 m2 Heart Rate: bpm BP: 118 / 60 mmHg Health/Safety Job Titles: ROSALINA Referring MD: Elizabeth Gabriel NP Rib Chopper: Gary Jo MD Symptoms: SYNCOPE, BRADYCARDIA Study Quality: Fair ECG Rhythm: Sinus Conclusions: - 1. Normal LV systolic function with grade 1 diastolic dysfunction 2. Mildly dilated left atrium 3. Trace aortic regurgitation 4. Mild mitral regurgitation 5. Normal RV systolic pressure 6. No pericardial effusion Findings Left Ventricle Normal left ventricular size, thickness, and systolic function. The visually estimated ejection fraction is between 65-70%. Spectral Doppler is indicative of an impaired relaxation filling pattern. E/E prime ratio is <8, consistent with normal filling pressures. Evidence suggests grade I (mild) diastolic dysfunction. Right Ventricle Normal right ventricular cavity size and systolic function. Atria The left atrium is mildly dilated. Interatrial shunt cannot be excluded. The right atrium was not well visualized. Aortic Valve There is mild calcification of the aortic valve. There is no aortic valve stenosis. There is mild aortic valve regurgitation. Mitral Valve There is mild anterior and posterior mitral leaflet thickening. There is mild mitral valve regurgitation. There is no mitral valve stenosis. Pulmonic Valve The pulmonic valve was not well visualized. Tricuspid Valve Likely normal tricuspid valve structure and function. There is trace tricuspid valve regurgitation. There is no evidence of pulmonary hypertension. Great Vessels All visible segments of the aorta are normal in size. The pulmonary artery was not well visualized. Venous The inferior vena cava is normal in size and collapses greater than 50% with inspiration. Pericardium/Pleural There is no evidence of pericardial effusion. Prior Study Comparison Changes noted compared to prior study dated: 03/15/2018. trace aortic regurgitation and mild mitral regurgitation noted Measurements 2D Linear Measurements IVSd: 1.13 0.6-0.9/0.6-1.0 cm LVIDd: 4.62 3.9-5.3/4.2-5.9 cm LVIDd Index: 2.35 2.4-3.2/2.2-3.1 cm/m2 LVIDs: 2.77 2.0-3.6 cm LVPWd: 1.09 0.7-1.1 cm Ao Root: 3.80 2.1-3.5 cm LA Diam: 4.10 2.7-3.8/3.0-4.0 cm LAIDs Index: 2.08 1.5-2.3 cm/m2 LV Mass: 263.42 67-162/88-224 g LV Mass Index: 133.71 43-95/49-115 g/m2 LVOT Diam: 2.00 3.0+(-)1.3 cm 2D Systolic Function EF 4C: 70.10 >55% EF 2C: 74.80 >55% EF BiP: 72.80 >55% Mitral Valve MV Pk E: 0.82 MV PK A: 0.94 MV Decel Time: 269.00 E/A: 0.90 E'Lateral: 11.30 E'Medial: 7.25 E/E' Med: 11.30 E/E' Lat: 7.30 PHT: 79.00 MVA PHT: 2.78 Decel Tate: 3.05 Aortic Valve AoV Pk James: 1.52 AoV Mn James: 0.96 AoV VTI: 0.45 AoV Pk Grad: 9.00 Aov Mn Grad: 4.00 RAQUEL Cont.VTI: 2.38 LVOT LVOT Pk James: 1.09 LVOT Mn James: 0.71 LVOT VTI: 0.34 LVOT Pk Grad: 5.00 LVOT Mn Grad: 2.00 LVOT Diam: 2.00 LVOT Area: 3.14 Diastolic Function MV Pk E: 0.82 MV Pk A: 0.94 E/A: 0.90 E'Medial: 7.25 E/E' Med: 11.30 E' Laterial: 11.30 E/E' Lat: 7.30 Tricuspid Valve TR Pk James: 2.01 TR Pk Grad: 16.00 RA Press: 3.00 RVSP: 19.00 Great Vessels Aorta Ao Root-2D: 3.80 2.0-3.7 cm Ao Asc: 3.30 2.1-3.4 cm Pulmonary Valve PV Pk James: 1.18 Peak PV Grad: 6.00 Updated in Other Vendor System with Status of Final Gary Jo MD electronically signed on 09/26/2020 11:37:50 AM with status of Final
== END 2020-09-26 13:37 | disposition home or self-care (01) ==
LOC: HO.ED 17:17 → HO.IMC 21:23
PROVIDERS: Nurse Practitioner Acute Care; Nurse Practitioner Family; Admitting Provider Internal Medicine; Emergency Provider Emergency Medicine; PCP Internal Medicine; Visit Provider Internal Medicine
DX: R55 Syncope and collapse (principal); R41.82 Altered mental status, unspecified; F03.90 Unspecified dementia, unspecified severity, without behavioral disturbance, psychotic disturbance, mood disturbance, and anxiety; F39 Unspecified mood [affective] disorder; E03.9 Hypothyroidism, unspecified; I10 Essential (primary) hypertension; R00.1 Bradycardia, unspecified; I51.7 Cardiomegaly; I44.7 Left bundle-branch block, unspecified; R94.31 Abnormal electrocardiogram [ECG] [EKG]; G25.81 Restless legs syndrome; K21.9 Gastro-esophageal reflux disease without esophagitis; Z91.81 History of falling; Z20.828 Contact with and (suspected) exposure to other viral communicable diseases; Z88.4 Allergy status to anesthetic agent; Z88.0 Allergy status to penicillin; Z79.899 Other long term (current) drug therapy
CPT/HCPCS: 36415; 70450; 71045; 71275; 72125; 80048; 80076; 80164; 81003; 83735; 84484; 85025; 85379; 85610; 87635; 93005; 93306; 99219; 99285; G0480; Q9967

== ENCOUNTER 2021-07-30 13:06 | Inpatient (IN) | payer MEDICARE, OTHER, SELFPAY ==
[2021-07-30 13:21] VITALS: BP 132/74; BP 153/70; PULSE 57; PULSE 86; RESP 16; TEMP 36.7; O2SAT 97; O2SAT 98; BMI 29.8
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
[2021-07-30 14:41] LABS: MANUAL DIFF FLAG NO
[2021-07-30 14:43] LABS: Basophils Percent Auto 0.9 % (0-2); Eosinophils Absolute Auto 0.5 X10*3/uL (0.0-0.4); Eosinophils Percent Auto 10.3 % (0-4); Hematocrit 35.3 % (37-47); Hemoglobin 12.1 g/dl (12.0-16.0); Imm Gran Abs Auto 0.01 X10*3/uL (0.00-0.03); Imm Gran Pct Auto 0.2 % (0.0-0.4); Lymphocytes Absolute Auto 1.1 X10*3/uL (1.2-4.9); Lymphocytes Percent Auto 24.8 % (20-40); Mean Corpuscular HGB Conc 34.3 g/dl (31.0-35.0); Mean Corpuscular Hemoglobin 30.6 pg (27.0-33.0); Mean Corpuscular Volume 89.4 fL (80-98); Monocytes Absolute Auto 0.5 X10*3/uL (0.1-1.2); Monocytes Percent Auto 11.2 % (2-11); Neutrophils Absolute Auto 2.4 X10*3/uL (2.0-8.3); Neutrophils Percent Auto 52.6 % (45-73); Platelet Count 236 X10*3/uL (160-400); Red Blood Count 3.95 X10*6/uL (4.20-5.50); Red Cell Distribution Width 13.8 % (11.0-16.0); White Blood Count 4.5 X10*3/uL (4.8-10.8)
[2021-07-30 14:59] LABS: COVID-19 Test Negative (Negative); IDNOW Serial# 08D9AD1C
[2021-07-30 15:00] LABS: Ethanol < 10 mg/dL
[2021-07-30 15:02] LABS: Alanine Aminotransferase 10 U/L (0-31); Alkaline Phosphatase 52 U/L (39-117); Anion Gap 12 (12-20); Aspartate Amino Transferase 25 U/L (5-31); Bilirubin Total 1.1 mg/dL (0.0-1.0); Blood Urea Nitrogen 14 mg/dL (9-16); Calcium 8.9 mg/dL (8.4-10.2); Carbon Dioxide 23 mmol/L (22-29); Chloride 103 mmol/L (96-108); Creatinine Clr Calc Pharmacy 56.8; Estimated Glomerular Filt Rate > 60; Glucose Random 118 mg/dL (60-115); Sodium 134 mmol/L (135-145)
[2021-07-30 15:09] LABS: Appearance Urine CLEAR; Color Urine YELLOW; Glucose Urine UA NEG (NEG); Leukocyte Esterase Urine NEG (NEG); Nitrite Urine NEG (NEG); Urine Blood NEG (NEG); Urine Ketones NEG (NEG); Urine Protein NEG (NEG-TRACE)
[2021-07-30 15:19] LABS: Valproate 49.6 mcg/mL (50.0-100.0)
[2021-07-30 15:22] LABS: Amphetamine Screen Urine Not Detected (Not Detect); Barbiturates, Urine Not Detected (Not Detect); Benzodiazepines Screen Urine Not Detected (Not Detect); Cannabinoid Screen Urine Not Detected (Not Detect); Cocaine Screen Urine Not Detected (Not Detect); Fentanyl, urine POSITIVE (Not Detect); Opiate Screen Urine Not Detected (Not Detect); Phencyclidine Screen Urine Not Detected (Not Detect)
[2021-07-30 15:23] LABS: TSH reflex Free T4 6.82 uIU/mL (0.32-4.0)
[2021-07-30 15:57] LABS: Free T4 (Free Thyroxine) 0.92 ng/dL (0.71-1.85)
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
--- NOTE | 2021-07-30 16:42 | PHA.MEDREC ---
Pharmacy Consult ? Medication Reconciliation Pharmacy has completed the medication reconciliation. Patient came in with a write list that was imput by AM Pharmacist Lakshmi. I called to verify supplements and OTC medications that were left unconfirmed. Lexy, patient daughter, confirmed that patient should be talking all the medications on the list and then confirmed each supplement patient takes. N[place]ha [place], JazmineD
[2021-07-30 19:50] VITALS: BP 155/70; PULSE 56; RESP 15; TEMP 36.8; O2SAT 95
[2021-07-30] MEDS: QUEtiapine Fumarate 100 MG TABLET PO (20:20)
[2021-07-30] MEDS: Donepezil HCl 10 MG TABLET PO (20:20)
[2021-07-30] MEDS: Sertraline HCL 50 MG TABLET PO (20:20)
[2021-07-30] MEDS: Omeprazole 20 MG CAPSULE.DR PO (20:20)
[2021-07-30] MEDS: Divalproex Sodium 250 MG TABLET.DR PO (20:20)
[2021-07-30] MEDS: Aspirin Enteric Coated 81 MG TABLET.DR PO (20:21)
[2021-07-30] MEDS: Melatonin 3 MG TABLET 18 MG PO (20:21)
[2021-07-30] MEDS: Memantine HCl 10 MG TABLET PO (20:21)
[2021-07-30] MEDS: QUEtiapine Fumarate 25 MG TABLET PO (20:21)
[2021-07-30] MEDS: Atorvastatin Calcium 10 MG TABLET PO (20:21)
[2021-07-30 20:29] VITALS: BP 155/70; PULSE 56
[2021-07-30] MEDS: amLODIPine Besylate 5 MG TABLET PO (20:29)
[2021-07-30 20:30] VITALS: BP 155/70; PULSE 56
[2021-07-30] MEDS: Losartan Potassium 50 MG TABLET 100 MG PO (20:30)
[2021-07-30 20:32] LABS: Amphetamine Screen Urine Not Detected (Not Detect); Barbiturates, Urine Not Detected (Not Detect); Benzodiazepines Screen Urine Not Detected (Not Detect); Cannabinoid Screen Urine Not Detected (Not Detect); Cocaine Screen Urine Not Detected (Not Detect); Fentanyl, urine POSITIVE (Not Detect); Opiate Screen Urine Not Detected (Not Detect); Phencyclidine Screen Urine Not Detected (Not Detect)
[2021-07-30 23:45] VITALS: BP 141/69; PULSE 62; RESP 16; TEMP 36.9; O2SAT 95
--- NOTE | 2021-07-31 | ECG_ITS ---
Test Reason : MEDCLEARANCE Blood Pressure : / mmHG Vent. Rate : 053 BPM Atrial Rate : 053 BPM P-R Int : 144 ms QRS Dur : 104 ms QT Int : 446 ms P-R-T Axes : 046 -32 058 degrees QTc Int : 418 ms Sinus bradycardia Left anterior fascicular block Intra-ventricular conduction delay T wave abnormality, consider anterior ischemia Abnormal ECG T wave amplitude has decreased in Anterolateral leads Referred By: Lakshmi Babcock Electronically Signed By:MARIBETH GALARZA MD
--- NOTE | 2021-07-31 05:31 | PC.NURSE ---
Patient slept through the night, OOR x 1 for bathroom use and back, behavior pleasant and non concerning, medication compliant, HS metoprolol held per providers order, repeat HERNANDEZ + for fentanyle, patient was assessed by care team no disposition, patient will be reassessed in the morning by care team, will continue to monitor.
[2021-07-31 06:30] VITALS: BP 161/56; PULSE 56; RESP 16; O2SAT 96
--- NOTE | 2021-07-31 07:14 | PC.NURSE ---
patient appears to remain asleep at present, respirations even and unlabored, patient appears in no distress
[2021-07-31 08:53] VITALS: BP 160/56; BP 161/56; PULSE 56
[2021-07-31] MEDS: Metoprolol Tartrate 100 MG TABLET PO ×2 (08:53→20:27)
[2021-07-31] MEDS: Losartan Potassium 50 MG TABLET 100 MG PO (08:53)
[2021-07-31] MEDS: Levothyroxine Sodium 112 MCG TABLET PO (08:54)
[2021-07-31] MEDS: Memantine HCl 10 MG TABLET PO ×2 (08:54→20:26)
[2021-07-31] MEDS: Cholecalciferol (Vitamin D3) 25 MCG TABLET PO (08:55)
[2021-07-31] MEDS: QUEtiapine Fumarate 25 MG TABLET PO (08:55)
[2021-07-31] MEDS: Omeprazole 20 MG CAPSULE.DR PO ×2 (08:55→17:48)
[2021-07-31] MEDS: Aspirin Enteric Coated 81 MG TABLET.DR PO (08:55)
[2021-07-31] MEDS: Divalproex Sodium 250 MG TABLET.DR PO ×2 (08:56→20:26)
[2021-07-31] MEDS: Multivitamin TABLET 1 TAB PO (08:56)
[2021-07-31 09:05] VITALS: BP 150/73; PULSE 61; RESP 16; TEMP 36.7; O2SAT 96
[2021-07-31 11:43] LABS: Amphetamine Screen Urine Not Detected (Not Detect); Barbiturates, Urine Not Detected (Not Detect); Benzodiazepines Screen Urine Not Detected (Not Detect); Cannabinoid Screen Urine Not Detected (Not Detect); Cocaine Screen Urine Not Detected (Not Detect); Fentanyl, urine POSITIVE (Not Detect); Opiate Screen Urine Not Detected (Not Detect); Phencyclidine Screen Urine Not Detected (Not Detect)
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
[2021-07-31 18:00] VITALS: BP 165/74; PULSE 61; RESP 17; TEMP 36.9; O2SAT 97
[2021-07-31] MEDS: Donepezil HCl 10 MG TABLET PO (20:26)
[2021-07-31] MEDS: Melatonin 3 MG TABLET 18 MG PO (20:26)
[2021-07-31] MEDS: rOPINIRole HCL 1 MG TABLET 1.5 MG PO (20:26)
[2021-07-31] MEDS: Sertraline HCL 50 MG TABLET PO (20:26)
[2021-07-31 20:27] VITALS: BP 119/58; PULSE 82
[2021-07-31] MEDS: amLODIPine Besylate 5 MG TABLET PO (20:27)
[2021-07-31] MEDS: QUEtiapine Fumarate 100 MG TABLET PO (20:27)
[2021-07-31] MEDS: Atorvastatin Calcium 10 MG TABLET PO (20:27)
[2021-08-01 06:00] VITALS: BP 139/63; PULSE 52; TEMP 35.3; O2SAT 95
[2021-08-01] MEDS: Omeprazole 20 MG CAPSULE.DR PO ×2 (06:12→18:04)
[2021-08-01] MEDS: Levothyroxine Sodium 112 MCG TABLET PO (06:12)
[2021-08-01] MEDS: Aspirin Enteric Coated 81 MG TABLET.DR PO (08:57)
[2021-08-01] MEDS: Multivitamin TABLET 1 TAB PO (08:57)
[2021-08-01] MEDS: Memantine HCl 10 MG TABLET PO ×2 (08:58→21:10)
[2021-08-01] MEDS: Divalproex Sodium 250 MG TABLET.DR PO ×2 (08:58→21:09)
[2021-08-01] MEDS: Cholecalciferol (Vitamin D3) 25 MCG TABLET PO (08:58)
[2021-08-01 08:59] VITALS: BP 140/63; PULSE 52
[2021-08-01] MEDS: Losartan Potassium 50 MG TABLET 100 MG PO (08:59)
[2021-08-01] MEDS: QUEtiapine Fumarate 25 MG TABLET PO (08:59)
[2021-08-01 09:06] VITALS: BP 139/63; PULSE 52
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
--- NOTE | 2021-08-01 13:14 | PC.NURSE ---
Patient alert and oriented x3. Flu vaccine administered 08/01/2021 at 12h46 PM . Right Deltoid . Serial number : [id number]. Lot : [id number] . Exp. Date : 04/03/22.
--- NOTE | 2021-08-01 16:03 | P.HPPS_ITS ---
HPI Date of Service: 08/01/21 Chief Complaint: psychosis Sources of Information: patient interviewed, chart reviewed and crisis/core team assessment reviewed HPI Subjective Notes: Conditional Voluntary Narrative: The patient is an 85-year-old female, , mother father children, with good social support, referred to the emergency room Bandar's his daughter found out that she was more agitated and paranoid. According to the crisis team, the daughter reported that the patient was hostile and agitated with her since she was taking care her medications. Apparently in the last days irritability has increased, she was also verbalizing auditory hallucinations, paranoia and increased anxiety. She was assessed on the emergency room and transferring to this facility for psychiatric stabilization. The nursing staff reported the patient was pleasant and cooperative on assessment that she was fully compliant with medications. During the interview, the patient reported that she was confused that she cannot remember what happened or how mg in the in the hospital. She reported auditory hallucinations with derogatory content, confusion and paranoia. 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 Medical Evaluation Reviewed: Yes [facility] Medical History Anxiety Dementia GERD (gastroesophageal reflux disease) High cholesterol Hypertension Hypothyroidism Mood disorder RLS (restless legs syndrome) Family History: Denies Social History: The patient lives at home, she has good social support provided by her daughter Substance History: Denies Trauma History: Denies Diagnostics Vital Signs (24Hr): Vital Signs - 24 hr 07/31/21 18:00 07/31/21 20:27 08/01/21 06:00 Temperature 98.5 F 95.6 F L Pulse Rate 61 82 52 Respiratory Rate 17 Blood Pressure 165/74 H 119/58 L 139/63 Pulse Oximetry 97 95 08/01/21 08:59 08/01/21 09:06 Temperature Pulse Rate 52 52 Respiratory Rate Blood Pressure 140/63 H 139/63 Pulse Oximetry Body Mass Index 29.8 Labs Results: 07/30/21 14:37 07/30/21 14:37 Labs: Laboratory Results - last 48 hr 07/30/21 07/31/21 20:11 11:20 Urine Opiates Screen Not Detected Not Detected Urine Fentanyl Screen POSITIVE H POSITIVE H Ur Barbiturates Screen Not Detected Not Detected Ur Phencyclidine Scrn Not Detected Not Detected Ur Amphetamines Screen Not Detected Not Detected U Benzodiazepines Scrn Not Detected Not Detected Urine Cocaine Screen Not Detected Not Detected U Marijuana (THC) Screen Not Detected Not Detected Meds/Allergies Meds Home Medications Acetaminophen (Acetaminophen 325 Mg Tablet) 650 mg PO Q6H PRN PRN Reason: Headache/Pain Mild Scale (1-3) Acetaminophen/Butalbital/Caffeine (Butalb/Acetamin/Caff 50/325/40 Tablet) 1 tab PO Q4H PRN PRN Reason: Headache Al Hydroxide/Mg Hydroxide (Magnesium Hydrox/Alum Hydrox 30 Ml Oral.Susp) 30 ml PO Q6H PRN PRN Reason: Heartburn/Nausea Amlodipine Besylate (Amlodipine Besylate 5 Mg Tablet) 5 mg PO BEDTIME [facility]; Protocol Last Admin: 07/31/21 20:27 Dose: 5 mg Documented by: Aspirin (Aspirin Enteric Coated 81 Mg Tablet.) 81 mg PO DAILY [facility] Last Admin: 08/01/21 08:57 Dose: 81 mg Documented by: Atorvastatin Calcium (Atorvastatin Calcium 10 Mg Tablet) 10 mg PO BEDTIME [facility] Last Admin: 07/31/21 20:27 Dose: 10 mg Documented by: Divalproex Sodium (Divalproex Sodium 250 Mg Tablet.) 250 mg PO BID [facility] Last Admin: 08/01/21 08:58 Dose: 250 mg Documented by: Donepezil HCl (Donepezil Hcl 10 Mg Tablet) 10 mg PO BEDTIME [facility] Last Admin: 07/31/21 20:26 Dose: 10 mg Documented by: Hydroxyzine HCl (Hydroxyzine Hcl 25 Mg Tablet) 25 mg PO BEDTIME PRN PRN Reason: Anxiety Levothyroxine Sodium (Levothyroxine Sodium 112 Mcg Tablet) 112 mcg PO DAILY@0630 [facility] Last Admin: 08/01/21 06:12 Dose: 112 mcg Documented by: Losartan Potassium (Losartan Potassium 50 Mg Tablet) 100 mg PO DAILY [facility]; Protocol Last Admin: 08/01/21 08:59 Dose: 100 mg Documented by: Magnesium Hydroxide (Milk Of Magnesia 30 Ml Oral.Susp) 30 ml PO DAILY PRN PRN Reason: Constipation Melatonin (Melatonin 3 Mg Tablet) 18 mg PO BEDTIME [facility] Last Admin: 07/31/21 20:26 Dose: 18 mg Documented by: Memantine (Memantine Hcl 10 Mg Tablet) 10 mg PO BID [facility] Last Admin: 08/01/21 08:58 Dose: 10 mg Documented by: Metoprolol Tartrate (Metoprolol Tartrate 100 Mg Tablet) 100 mg PO BID [facility]; Protocol Last Admin: 08/01/21 09:06 Dose: Not Given Documented by: Multivitamins/Vitamin C (Multivitamin Tablet) 1 tab PO DAILY [facility] Last Admin: 08/01/21 08:57 Dose: 1 tab Documented by: Omeprazole (Omeprazole 20 Mg Capsule.Dr) 20 mg PO BID@0630,5550 [facility] Last Admin: 08/01/21 06:12 Dose: 20 mg Documented by: Pharmacy Consult (Consult Rx Perform Med Rec) 1 each MISCELLANE ONCE PRN PRN Reason: Consult order Pharmacy Consult (Consult Rx Perform Med Rec) 1 each MISCELLANE ONCE PRN PRN Reason: Consult order Quetiapine Fumarate (Quetiapine Fumarate 25 Mg Tablet) 25 mg PO DAILY [facility] Last Admin: 08/01/21 08:59 Dose: 25 mg Documented by: Quetiapine Fumarate (Quetiapine Fumarate 100 Mg Tablet) 100 mg PO BEDTIME [facility] Last Admin: 07/31/21 20:27 Dose: 100 mg Documented by: Ropinirole HCl (Ropinirole Hcl 1 Mg Tablet) 1.5 mg PO BEDTIME [facility] Last Admin: 07/31/21 20:26 Dose: 1.5 mg Documented by: Sertraline HCl (Sertraline Hcl 50 Mg Tablet) 50 mg PO BEDTIME [facility] Last Admin: 07/31/21 20:26 Dose: 50 mg Documented by: Vitamin D (Cholecalciferol (Vitamin D3) 25 Mcg Tablet) 25 mcg PO DAILY [facility] Last Admin: 08/01/21 08:58 Dose: 25 mcg Documented by: Allergies Allergies Allergy/AdvReac Type Severity Reaction Status Date / Time penicillin V Allergy Unknown swelling Verified 10/20/18 00:00 Penicillins [PENICILLINS] Allergy Unknown UNKNOWN Unverified 06/21/20 14:36 procaine [From NOVOCAIN] Allergy Unknown UNKNOWN Unverified 06/21/20 14:36 Novocain Allergy Unknown swelling Uncoded 10/20/18 00:00 Mental Status Exam Mental Status Exam Patient Appearance: Disheveled and Unkempt Patient Orientation: Person and Situation Level of Consciousness: Awake and Disoriented Patient Behavior: Cooperative Mood Description: Depressed Affect Description: Constricted Patient Cognition Impaired: Yes Ability to Follow Directions: Fair Speech Pattern: Slurred and Impoverished Hallucinations: Auditory Delusions: Paranoid Ideation Thought Process: Distracted and Linear Thought Content: positive for Circumstantial and positive for Poverty of Content Judgement: Fair Assessment & Plan Assessment & Plan (1) Mood disorder: Status: Acute Code(s): F39 - Unspecified mood [affective] disorder (2) Dementia: Status: Acute Code(s): F03.90 - Unspecified dementia without behavioral disturbance Assessment and Plan: Elderly female with a long history of dementia and psychotic symptoms, admitted for exacerbation of irritability and psychosis. Plan 1. Continue same medications. 2. Gather collateral information. 3. Regular blood work Reason for continued inpatient stay Substantial Risk for: harm to others, inability to function, rapid decompensation and med/psych decompensation
[2021-08-01 20:00] VITALS: BP 181/77; PULSE 60; RESP 19; TEMP 36.8; O2SAT 96
[2021-08-01 21:08] VITALS: BP 181/77; PULSE 60
[2021-08-01] MEDS: QUEtiapine Fumarate 100 MG TABLET PO (21:08)
[2021-08-01] MEDS: amLODIPine Besylate 5 MG TABLET PO (21:08)
[2021-08-01] MEDS: Sertraline HCL 50 MG TABLET PO (21:08)
[2021-08-01 21:09] VITALS: BP 181/77; PULSE 60
[2021-08-01] MEDS: Atorvastatin Calcium 10 MG TABLET PO (21:09)
[2021-08-01] MEDS: Metoprolol Tartrate 100 MG TABLET PO (21:09)
[2021-08-01] MEDS: rOPINIRole HCL 1 MG TABLET 1.5 MG PO (21:10)
[2021-08-01] MEDS: Melatonin 3 MG TABLET 18 MG PO (21:10)
[2021-08-01] MEDS: Donepezil HCl 10 MG TABLET PO (21:10)
[2021-08-02 06:00] VITALS: BP 118/53; PULSE 61; RESP 15; TEMP 36.2; O2SAT 96
[2021-08-02] MEDS: Omeprazole 20 MG CAPSULE.DR PO (06:10)
[2021-08-02] MEDS: Levothyroxine Sodium 112 MCG TABLET PO (06:10)
[2021-08-02 09:47] VITALS: BP 118/53; PULSE 61
[2021-08-02] MEDS: Divalproex Sodium 250 MG TABLET.DR PO ×2 (09:47→21:44)
[2021-08-02] MEDS: Cholecalciferol (Vitamin D3) 25 MCG TABLET PO (09:47)
[2021-08-02] MEDS: Multivitamin TABLET 1 TAB PO (09:47)
[2021-08-02] MEDS: Memantine HCl 10 MG TABLET PO ×2 (09:47→21:44)
[2021-08-02] MEDS: Losartan Potassium 50 MG TABLET 100 MG PO (09:47)
[2021-08-02] MEDS: Metoprolol Tartrate 100 MG TABLET PO ×2 (09:47→21:45)
[2021-08-02] MEDS: Aspirin Enteric Coated 81 MG TABLET.DR PO (09:47)
[2021-08-02] MEDS: QUEtiapine Fumarate 25 MG TABLET PO (09:47)
--- NOTE | 2021-08-02 14:01 | HO.PSYCHPN ---
Subjective Subjective Date of Service: 08/02/21 Reason For Visit: psychosis Subjective Notes: Conditional Voluntary Interim History: The nursing staff reported that the patient has been no her room most of the day yesterday. We had a family meeting with her daughter and the web content & social media manager and apparently the patient had been more agitated in the last week or so with aggressive behavior. Her daughter also reported increased paranoia, wandering want unpredictable behavior against her . On interview, the patient was resting she denies of auditory hallucinations but she looks pleasantly confused. As per her daughter does her baseline. During the family meeting, the daughter reported that the patient believes that she can drive and perform other activities but it is clear that her level of functioning has declined. Medication Compliance: Yes Side effects from medications: No Review of Systems Acute medical concerns: No Medical Review of Systems: unchanged Mental Status Exam Mental Status Exam Patient Appearance: Disheveled and Unkempt Patient Orientation: Person Level of Consciousness: Awake and Drowsy Patient Behavior: Guarded and Suspicious Mood Description: Constricted Affect Description: Constricted Patient Cognition Impaired: Yes Ability to Follow Directions: Fair Speech Pattern: Clear Hallucinations: None Delusions: Paranoid Ideation Thought Process: Evasive Thought Content: positive for Circumstantial and positive for Poverty of Content Judgement: Fair Diagnostics Vital Signs (24Hr): Vital Signs - 24 hr 08/01/21 20:00 08/01/21 21:08 08/01/21 21:09 Temperature 98.2 F Pulse Rate 60 60 60 Respiratory Rate 19 Blood Pressure 181/77 H 181/77 H 181/77 H Pulse Oximetry 96 08/02/21 06:00 08/02/21 09:47 Temperature 97.1 F Pulse Rate 61 61 Respiratory Rate 15 Blood Pressure 118/53 L 118/53 L Pulse Oximetry 96 Body Mass Index 29.8 Labs Results: 07/30/21 14:37 07/30/21 14:37 Medications Medications Current Medications Acetaminophen (Acetaminophen 325 Mg Tablet) 650 mg PO Q6H PRN PRN Reason: Headache/Pain Mild Scale (1-3) Acetaminophen/Butalbital/Caffeine (Butalb/Acetamin/Caff 50/325/40 Tablet) 1 tab PO Q4H PRN PRN Reason: Headache Al Hydroxide/Mg Hydroxide (Magnesium Hydrox/Alum Hydrox 30 Ml Oral.Susp) 30 ml PO Q6H PRN PRN Reason: Heartburn/Nausea Amlodipine Besylate (Amlodipine Besylate 5 Mg Tablet) 5 mg PO BEDTIME [facility]; Protocol Last Admin: 08/01/21 21:08 Dose: 5 mg Documented by: Aspirin (Aspirin Enteric Coated 81 Mg Tablet.) 81 mg PO DAILY [facility] Last Admin: 08/02/21 09:47 Dose: 81 mg Documented by: Atorvastatin Calcium (Atorvastatin Calcium 10 Mg Tablet) 10 mg PO BEDTIME [facility] Last Admin: 08/01/21 21:09 Dose: 10 mg Documented by: Divalproex Sodium (Divalproex Sodium 250 Mg Tablet.) 250 mg PO BID [facility] Last Admin: 08/02/21 09:47 Dose: 250 mg Documented by: Donepezil HCl (Donepezil Hcl 10 Mg Tablet) 10 mg PO BEDTIME [facility] Last Admin: 08/01/21 21:10 Dose: 10 mg Documented by: Hydroxyzine HCl (Hydroxyzine Hcl 25 Mg Tablet) 25 mg PO BEDTIME PRN PRN Reason: Anxiety Levothyroxine Sodium (Levothyroxine Sodium 112 Mcg Tablet) 112 mcg PO DAILY@0630 [facility] Last Admin: 08/02/21 06:10 Dose: 112 mcg Documented by: Losartan Potassium (Losartan Potassium 50 Mg Tablet) 100 mg PO DAILY [facility]; Protocol Last Admin: 08/02/21 09:47 Dose: 100 mg Documented by: Magnesium Hydroxide (Milk Of Magnesia 30 Ml Oral.Susp) 30 ml PO DAILY PRN PRN Reason: Constipation Melatonin (Melatonin 3 Mg Tablet) 18 mg PO BEDTIME [facility] Last Admin: 08/01/21 21:10 Dose: 18 mg Documented by: Memantine (Memantine Hcl 10 Mg Tablet) 10 mg PO BID [facility] Last Admin: 08/02/21 09:47 Dose: 10 mg Documented by: Metoprolol Tartrate (Metoprolol Tartrate 100 Mg Tablet) 100 mg PO BID [facility]; Protocol Last Admin: 08/02/21 09:47 Dose: 100 mg Documented by: Multivitamins/Vitamin C (Multivitamin Tablet) 1 tab PO DAILY [facility] Last Admin: 08/02/21 09:47 Dose: 1 tab Documented by: Omeprazole (Omeprazole 20 Mg Capsule.) 20 mg PO BID@0630,1630 [facility] Last Admin: 08/02/21 06:10 Dose: 20 mg Documented by: Pharmacy Consult (Consult Rx Perform Med Rec) 1 each MISCELLANE ONCE PRN PRN Reason: Consult order Pharmacy Consult (Consult Rx Perform Med Rec) 1 each MISCELLANE ONCE PRN PRN Reason: Consult order Quetiapine Fumarate (Quetiapine Fumarate 25 Mg Tablet) 25 mg PO DAILY [facility] Last Admin: 08/02/21 09:47 Dose: 25 mg Documented by: Quetiapine Fumarate (Quetiapine Fumarate 100 Mg Tablet) 100 mg PO BEDTIME [facility] Last Admin: 08/01/21 21:08 Dose: 100 mg Documented by: Ropinirole HCl (Ropinirole Hcl 1 Mg Tablet) 1.5 mg PO BEDTIME [facility] Last Admin: 08/01/21 21:10 Dose: 1.5 mg Documented by: Sertraline HCl (Sertraline Hcl 50 Mg Tablet) 50 mg PO BEDTIME [facility] Last Admin: 08/01/21 21:08 Dose: 50 mg Documented by: Vitamin D (Cholecalciferol (Vitamin D3) 25 Mcg Tablet) 25 mcg PO DAILY [facility] Last Admin: 08/02/21 09:47 Dose: 25 mcg Documented by: Allergies Allergies Allergy/AdvReac Type Severity Reaction Status Date / Time penicillin V Allergy Unknown swelling Verified 10/20/18 00:00 Penicillins [PENICILLINS] Allergy Unknown UNKNOWN Unverified 06/21/20 14:36 procaine [From NOVOCAIN] Allergy Unknown UNKNOWN Unverified 06/21/20 14:36 Novocain Allergy Unknown swelling Uncoded 10/20/18 00:00 Assessment & Plan Assessment & Plan (1) Mood disorder: Status: Acute Code(s): F39 - Unspecified mood [affective] disorder (2) Dementia: Status: Acute Code(s): F03.90 - Unspecified dementia without behavioral disturbance Assessment and Plan: Elderly female with a long history of dementia and psychotic symptoms, admitted for exacerbation of irritability and psychosis. Plan 1. Continue same medications. 2. Gather collateral information. 3. We will consider increase Seroquel if we see agitation in the next days I spent minutes with the patient and/or on the patient floor today, greater than?50% of which was spent counseling/coordinating care. Reason for contiued inpatient stay Substantial Risk for: inability to function, rapid decompensation and med/psych decompensation
[2021-08-02 18:00] VITALS: BP 140/65; PULSE 61; RESP 18; TEMP 37.3; O2SAT 94
[2021-08-02 21:40] VITALS: BP 117/61; PULSE 61; RESP 19
[2021-08-02] MEDS: QUEtiapine Fumarate 100 MG TABLET PO (21:44)
[2021-08-02] MEDS: Atorvastatin Calcium 10 MG TABLET PO (21:44)
[2021-08-02] MEDS: rOPINIRole HCL 1 MG TABLET 1.5 MG PO (21:44)
[2021-08-02] MEDS: Sertraline HCL 50 MG TABLET PO (21:44)
[2021-08-02] MEDS: Melatonin 3 MG TABLET 18 MG PO (21:44)
[2021-08-02 21:45] VITALS: BP 117/65; PULSE 61
[2021-08-02] MEDS: Donepezil HCl 10 MG TABLET PO (21:45)
[2021-08-02] MEDS: amLODIPine Besylate 5 MG TABLET PO (21:45)
[2021-08-03] MEDS: Levothyroxine Sodium 112 MCG TABLET PO (06:03)
[2021-08-03] MEDS: Omeprazole 20 MG CAPSULE.DR PO ×2 (06:03→16:52)
[2021-08-03 09:10] VITALS: BP 153/68; PULSE 60; RESP 16; TEMP 36.1; O2SAT 96
[2021-08-03] MEDS: Aspirin Enteric Coated 81 MG TABLET.DR PO (09:14)
[2021-08-03] MEDS: Multivitamin TABLET 1 TAB PO (09:14)
[2021-08-03] MEDS: Memantine HCl 10 MG TABLET PO ×2 (09:14→20:32)
[2021-08-03] MEDS: Divalproex Sodium 250 MG TABLET.DR PO ×2 (09:14→20:33)
[2021-08-03 09:15] VITALS: BP 153/68; PULSE 60
[2021-08-03] MEDS: QUEtiapine Fumarate 25 MG TABLET PO (09:15)
[2021-08-03] MEDS: Losartan Potassium 50 MG TABLET 100 MG PO (09:15)
[2021-08-03] MEDS: Cholecalciferol (Vitamin D3) 25 MCG TABLET PO (09:15)
[2021-08-03 09:16] VITALS: BP 153/68; PULSE 60
[2021-08-03] MEDS: Metoprolol Tartrate 100 MG TABLET PO ×2 (09:16→20:37)
--- NOTE | 2021-08-03 17:08 | P.PNPSI_ITS ---
Subjective Subjective Date of Service: 08/03/21 Reason For Visit: psychosis Interim History: pt reports she is doing good and that everything is going all right. she has no complaints or requests for this mortgage loan underwriter. per staff, pt is isolative, comes out of her room for meals. spending a lot of time sleeping. denying SI/HI/AVH. med-compliant. Mental Status Exam Mental Status Exam Patient Appearance: Disheveled and Unkempt Patient Orientation: Person Level of Consciousness: Awake Patient Behavior: Guarded and Suspicious Mood Description: Constricted Affect Description: Constricted Patient Cognition Impaired: Yes Ability to Follow Directions: Fair Speech Pattern: Clear Hallucinations: None Thought Process: Evasive Thought Content: positive for Circumstantial and positive for Poverty of Content Judgement: Fair Diagnostics Vital Signs (24Hr): Vital Signs - 24 hr 08/02/21 18:00 08/02/21 21:40 08/02/21 21:45 Temperature 99.1 F Pulse Rate 61 61 61 Respiratory Rate 18 19 Blood Pressure 140/65 H 117/61 117/65 Pulse Oximetry 94 08/03/21 09:10 08/03/21 09:15 08/03/21 09:16 Temperature 97.0 F Pulse Rate 60 60 60 Respiratory Rate 16 Blood Pressure 153/68 H 153/68 H 153/68 H Pulse Oximetry 96 Body Mass Index 29.8 Labs Results: 07/30/21 14:37 07/30/21 14:37 Medications Medications Current Medications Acetaminophen (Acetaminophen 325 Mg Tablet) 650 mg PO Q6H PRN PRN Reason: Headache/Pain Mild Scale (1-3) Acetaminophen/Butalbital/Caffeine (Butalb/Acetamin/Caff 50/325/40 Tablet) 1 tab PO Q4H PRN PRN Reason: Headache Al Hydroxide/Mg Hydroxide (Magnesium Hydrox/Alum Hydrox 30 Ml Oral.Susp) 30 ml PO Q6H PRN PRN Reason: Heartburn/Nausea Amlodipine Besylate (Amlodipine Besylate 5 Mg Tablet) 5 mg PO BEDTIME [facility]; Protocol Last Admin: 08/02/21 21:45 Dose: 5 mg Documented by: Aspirin (Aspirin Enteric Coated 81 Mg Tablet.) 81 mg PO DAILY [facility] Last Admin: 08/03/21 09:14 Dose: 81 mg Documented by: Atorvastatin Calcium (Atorvastatin Calcium 10 Mg Tablet) 10 mg PO BEDTIME [facility] Last Admin: 08/02/21 21:44 Dose: 10 mg Documented by: Divalproex Sodium (Divalproex Sodium 250 Mg Tablet.) 250 mg PO BID [facility] Last Admin: 08/03/21 09:14 Dose: 250 mg Documented by: Donepezil HCl (Donepezil Hcl 10 Mg Tablet) 10 mg PO BEDTIME [facility] Last Admin: 08/02/21 21:45 Dose: 10 mg Documented by: Hydroxyzine HCl (Hydroxyzine Hcl 25 Mg Tablet) 25 mg PO BEDTIME PRN PRN Reason: Anxiety Levothyroxine Sodium (Levothyroxine Sodium 112 Mcg Tablet) 112 mcg PO DAILY@0630 [facility] Last Admin: 08/03/21 06:03 Dose: 112 mcg Documented by: Losartan Potassium (Losartan Potassium 50 Mg Tablet) 100 mg PO DAILY [facility]; Protocol Last Admin: 08/03/21 09:15 Dose: 100 mg Documented by: Magnesium Hydroxide (Milk Of Magnesia 30 Ml Oral.Susp) 30 ml PO DAILY PRN PRN Reason: Constipation Melatonin (Melatonin 3 Mg Tablet) 18 mg PO BEDTIME [facility] Last Admin: 08/02/21 21:44 Dose: 18 mg Documented by: Memantine (Memantine Hcl 10 Mg Tablet) 10 mg PO BID [facility] Last Admin: 08/03/21 09:14 Dose: 10 mg Documented by: Metoprolol Tartrate (Metoprolol Tartrate 100 Mg Tablet) 100 mg PO BID [facility]; Protocol Last Admin: 08/03/21 09:16 Dose: 100 mg Documented by: Multivitamins/Vitamin C (Multivitamin Tablet) 1 tab PO DAILY [facility] Last Admin: 08/03/21 09:14 Dose: 1 tab Documented by: Omeprazole (Omeprazole 20 Mg Capsule.) 20 mg PO BID@0630,1630 [facility] Last Admin: 08/03/21 16:52 Dose: 20 mg Documented by: Pharmacy Consult (Consult Rx Perform Med Rec) 1 each MISCELLANE ONCE PRN PRN Reason: Consult order Pharmacy Consult (Consult Rx Perform Med Rec) 1 each MISCELLANE ONCE PRN PRN Reason: Consult order Quetiapine Fumarate (Quetiapine Fumarate 25 Mg Tablet) 25 mg PO DAILY [facility] Last Admin: 08/03/21 09:15 Dose: 25 mg Documented by: Quetiapine Fumarate (Quetiapine Fumarate 100 Mg Tablet) 100 mg PO BEDTIME [facility] Last Admin: 08/02/21 21:44 Dose: 100 mg Documented by: Ropinirole HCl (Ropinirole Hcl 1 Mg Tablet) 1.5 mg PO BEDTIME [facility] Last Admin: 08/02/21 21:44 Dose: 1.5 mg Documented by: Sertraline HCl (Sertraline Hcl 50 Mg Tablet) 50 mg PO BEDTIME [facility] Last Admin: 08/02/21 21:44 Dose: 50 mg Documented by: Vitamin D (Cholecalciferol (Vitamin D3) 25 Mcg Tablet) 25 mcg PO DAILY [facility] Last Admin: 08/03/21 09:15 Dose: 25 mcg Documented by: Allergies Allergies Allergy/AdvReac Type Severity Reaction Status Date / Time penicillin V Allergy Unknown swelling Verified 10/20/18 00:00 Penicillins [PENICILLINS] Allergy Unknown UNKNOWN Unverified 06/21/20 14:36 procaine [From NOVOCAIN] Allergy Unknown UNKNOWN Unverified 06/21/20 14:36 Novocain Allergy Unknown swelling Uncoded 10/20/18 00:00 Assessment & Plan Assessment & Plan (1) Mood disorder: Status: Acute Code(s): F39 - Unspecified mood [affective] disorder (2) Dementia: Status: Acute Code(s): F03.90 - Unspecified dementia without behavioral disturbance Assessment and Plan: Elderly female with a long history of dementia and psychotic symptoms, admitted for exacerbation of irritability and psychosis. Plan 1. Continue same medications. 2. Gather collateral information. 3. We will consider increase Seroquel if we see agitation in the next days I spent minutes with the patient and/or on the patient floor today, greater than?50% of which was spent counseling/coordinating care. Reason for contiued inpatient stay Substantial Risk for: harm to others
[2021-08-03 20:20] VITALS: BP 163/74; PULSE 61; RESP 19; TEMP 36.1; O2SAT 97
[2021-08-03] MEDS: rOPINIRole HCL 1 MG TABLET 1.5 MG PO (20:30)
[2021-08-03] MEDS: Donepezil HCl 10 MG TABLET PO (20:32)
[2021-08-03] MEDS: Atorvastatin Calcium 10 MG TABLET PO (20:32)
[2021-08-03] MEDS: Melatonin 3 MG TABLET 18 MG PO (20:32)
[2021-08-03 20:33] VITALS: BP 163/74; PULSE 61
[2021-08-03] MEDS: QUEtiapine Fumarate 100 MG TABLET PO (20:33)
[2021-08-03] MEDS: Sertraline HCL 50 MG TABLET PO (20:33)
[2021-08-03] MEDS: amLODIPine Besylate 5 MG TABLET PO (20:33)
[2021-08-03 20:37] VITALS: BP 163/74; PULSE 61
[2021-08-04] MEDS: Omeprazole 20 MG CAPSULE.DR PO (05:40)
[2021-08-04] MEDS: Levothyroxine Sodium 112 MCG TABLET PO (05:40)
[2021-08-04 09:40] VITALS: BP 117/60; PULSE 77; RESP 16; TEMP 36.2; O2SAT 95
[2021-08-04 09:41] VITALS: BP 117/60; PULSE 95
[2021-08-04] MEDS: Losartan Potassium 50 MG TABLET 100 MG PO (09:41)
[2021-08-04] MEDS: Multivitamin TABLET 1 TAB PO (09:41)
[2021-08-04] MEDS: Aspirin Enteric Coated 81 MG TABLET.DR PO (09:41)
[2021-08-04] MEDS: Divalproex Sodium 250 MG TABLET.DR PO ×2 (09:41→20:30)
[2021-08-04 09:42] VITALS: BP 117/60; PULSE 95
[2021-08-04] MEDS: QUEtiapine Fumarate 25 MG TABLET PO (09:42)
[2021-08-04] MEDS: Cholecalciferol (Vitamin D3) 25 MCG TABLET PO (09:42)
[2021-08-04] MEDS: Memantine HCl 10 MG TABLET PO ×2 (09:42→20:30)
[2021-08-04] MEDS: Metoprolol Tartrate 100 MG TABLET PO ×2 (09:42→20:30)
--- NOTE | 2021-08-04 14:56 | HO.PSYCHPN ---
Subjective Subjective Date of Service: 08/04/21 Reason For Visit: psychosis Interim History: pt reports she is doing well, taking each day as it comes. no complaints or requests. per staff, coming out of her room for food only. taking meds, no complaints. Mental Status Exam Mental Status Exam Patient Appearance: Disheveled and Unkempt Patient Orientation: Person Level of Consciousness: Awake Patient Behavior: Appropriate Mood Description: Constricted Affect Description: Constricted Patient Cognition Impaired: Yes Ability to Follow Directions: Fair Speech Pattern: Clear Hallucinations: None Thought Process: Evasive Thought Content: positive for Circumstantial and positive for Poverty of Content Judgement: Fair Diagnostics Vital Signs (24Hr): Vital Signs - 24 hr 08/03/21 20:20 08/03/21 20:33 08/03/21 20:37 Temperature 96.9 F Pulse Rate 61 61 61 Respiratory Rate 19 Blood Pressure 163/74 H 163/74 H 163/74 H Pulse Oximetry 97 08/04/21 09:40 08/04/21 09:41 08/04/21 09:42 Temperature 97.1 F Pulse Rate 77 95 95 Respiratory Rate 16 Blood Pressure 117/60 117/60 117/60 Pulse Oximetry 95 Body Mass Index 29.8 Labs Results: 07/30/21 14:37 07/30/21 14:37 Medications Medications Current Medications Acetaminophen (Acetaminophen 325 Mg Tablet) 650 mg PO Q6H PRN PRN Reason: Headache/Pain Mild Scale (1-3) Acetaminophen/Butalbital/Caffeine (Butalb/Acetamin/Caff 50/325/40 Tablet) 1 tab PO Q4H PRN PRN Reason: Headache Al Hydroxide/Mg Hydroxide (Magnesium Hydrox/Alum Hydrox 30 Ml Oral.Susp) 30 ml PO Q6H PRN PRN Reason: Heartburn/Nausea Amlodipine Besylate (Amlodipine Besylate 5 Mg Tablet) 5 mg PO BEDTIME [facility]; Protocol Last Admin: 08/03/21 20:33 Dose: 5 mg Documented by: Aspirin (Aspirin Enteric Coated 81 Mg Tablet.) 81 mg PO DAILY [facility] Last Admin: 08/04/21 09:41 Dose: 81 mg Documented by: Atorvastatin Calcium (Atorvastatin Calcium 10 Mg Tablet) 10 mg PO BEDTIME [facility] Last Admin: 08/03/21 20:32 Dose: 10 mg Documented by: Divalproex Sodium (Divalproex Sodium 250 Mg Tablet.) 250 mg PO BID [facility] Last Admin: 08/04/21 09:41 Dose: 250 mg Documented by: Donepezil HCl (Donepezil Hcl 10 Mg Tablet) 10 mg PO BEDTIME [facility] Last Admin: 08/03/21 20:32 Dose: 10 mg Documented by: Hydroxyzine HCl (Hydroxyzine Hcl 25 Mg Tablet) 25 mg PO BEDTIME PRN PRN Reason: Anxiety Levothyroxine Sodium (Levothyroxine Sodium 112 Mcg Tablet) 112 mcg PO DAILY@0630 [facility] Last Admin: 08/04/21 05:40 Dose: 112 mcg Documented by: Losartan Potassium (Losartan Potassium 50 Mg Tablet) 100 mg PO DAILY [facility]; Protocol Last Admin: 08/04/21 09:41 Dose: 100 mg Documented by: Magnesium Hydroxide (Milk Of Magnesia 30 Ml Oral.Susp) 30 ml PO DAILY PRN PRN Reason: Constipation Melatonin (Melatonin 3 Mg Tablet) 18 mg PO BEDTIME [facility] Last Admin: 08/03/21 20:32 Dose: 18 mg Documented by: Memantine (Memantine Hcl 10 Mg Tablet) 10 mg PO BID [facility] Last Admin: 08/04/21 09:42 Dose: 10 mg Documented by: Metoprolol Tartrate (Metoprolol Tartrate 100 Mg Tablet) 100 mg PO BID [facility]; Protocol Last Admin: 08/04/21 09:42 Dose: 100 mg Documented by: Multivitamins/Vitamin C (Multivitamin Tablet) 1 tab PO DAILY [facility] Last Admin: 08/04/21 09:41 Dose: 1 tab Documented by: Omeprazole (Omeprazole 20 Mg Capsule.) 20 mg PO BID@0630,1630 [facility] Last Admin: 08/04/21 05:40 Dose: 20 mg Documented by: Pharmacy Consult (Consult Rx Perform Med Rec) 1 each MISCELLANE ONCE PRN PRN Reason: Consult order Pharmacy Consult (Consult Rx Perform Med Rec) 1 each MISCELLANE ONCE PRN PRN Reason: Consult order Quetiapine Fumarate (Quetiapine Fumarate 25 Mg Tablet) 25 mg PO DAILY [facility] Last Admin: 08/04/21 09:42 Dose: 25 mg Documented by: Quetiapine Fumarate (Quetiapine Fumarate 100 Mg Tablet) 100 mg PO BEDTIME [facility] Last Admin: 08/03/21 20:33 Dose: 100 mg Documented by: Ropinirole HCl (Ropinirole Hcl 1 Mg Tablet) 1.5 mg PO BEDTIME [facility] Last Admin: 08/03/21 20:30 Dose: 1.5 mg Documented by: Sertraline HCl (Sertraline Hcl 50 Mg Tablet) 50 mg PO BEDTIME [facility] Last Admin: 08/03/21 20:33 Dose: 50 mg Documented by: Vitamin D (Cholecalciferol (Vitamin D3) 25 Mcg Tablet) 25 mcg PO DAILY [facility] Last Admin: 08/04/21 09:42 Dose: 25 mcg Documented by: Allergies Allergies Allergy/AdvReac Type Severity Reaction Status Date / Time Penicillins [PENICILLINS] Allergy Intermediate Headache Verified 08/03/21 20:30 penicillin V Allergy Unknown swelling Verified 10/20/18 00:00 procaine [From NOVOCAIN] Allergy Unknown Headache Verified 08/03/21 20:30 Assessment & Plan Assessment & Plan (1) Mood disorder: Status: Acute Code(s): F39 - Unspecified mood [affective] disorder (2) Dementia: Status: Acute Code(s): F03.90 - Unspecified dementia without behavioral disturbance Assessment and Plan: Elderly female with a long history of dementia and psychotic symptoms, admitted for exacerbation of irritability and psychosis. Plan 1. Continue same medications. 2. Gather collateral information. 3. We will consider increase Seroquel if we see agitation in the next days I spent minutes with the patient and/or on the patient floor today, greater than?50% of which was spent counseling/coordinating care. Reason for contiued inpatient stay Substantial Risk for: inability to function
[2021-08-04 20:19] VITALS: BP 136/63; PULSE 61; RESP 19; TEMP 36.6; O2SAT 95
[2021-08-04 20:30] VITALS: BP 136/63; PULSE 61
[2021-08-04] MEDS: QUEtiapine Fumarate 100 MG TABLET PO (20:30)
[2021-08-04] MEDS: Sertraline HCL 50 MG TABLET PO (20:31)
[2021-08-04] MEDS: Atorvastatin Calcium 10 MG TABLET PO (20:31)
[2021-08-04] MEDS: Donepezil HCl 10 MG TABLET PO (20:31)
[2021-08-04] MEDS: rOPINIRole HCL 1 MG TABLET 1.5 MG PO (20:31)
[2021-08-04 20:32] VITALS: BP 136/63; PULSE 61
[2021-08-04] MEDS: Melatonin 3 MG TABLET 18 MG PO (20:32)
[2021-08-04] MEDS: amLODIPine Besylate 5 MG TABLET PO (20:32)
[2021-08-05] MEDS: Omeprazole 20 MG CAPSULE.DR PO ×2 (05:46→15:02)
[2021-08-05] MEDS: Levothyroxine Sodium 112 MCG TABLET PO (05:46)
[2021-08-05 06:00] VITALS: BP 137/63; PULSE 56; TEMP 35.7; O2SAT 96
[2021-08-05 08:33] VITALS: BP 137/63; PULSE 56
[2021-08-05] MEDS: Divalproex Sodium 250 MG TABLET.DR PO ×2 (08:33→23:47)
[2021-08-05] MEDS: Metoprolol Tartrate 100 MG TABLET PO (08:33)
[2021-08-05] MEDS: Memantine HCl 10 MG TABLET PO ×2 (08:33→23:47)
[2021-08-05] MEDS: Losartan Potassium 50 MG TABLET 100 MG PO (08:33)
[2021-08-05] MEDS: QUEtiapine Fumarate 25 MG TABLET PO (08:33)
[2021-08-05] MEDS: Multivitamin TABLET 1 TAB PO (08:34)
[2021-08-05] MEDS: Cholecalciferol (Vitamin D3) 25 MCG TABLET PO (08:34)
[2021-08-05] MEDS: Aspirin Enteric Coated 81 MG TABLET.DR PO (08:34)
--- NOTE | 2021-08-05 15:52 | P.PNPSI_ITS ---
Subjective Subjective Date of Service: 08/05/21 Reason For Visit: psychosis Interim History: The nursing staff reports that the patient is mostly in her room when she comes out of for meals. Her daughter came last Thursday under trying to get more services at home. We gather more collateral information and it seems that the current dose is working for her Mental Status Exam Mental Status Exam Patient Appearance: Well Grooomed Patient Orientation: Person Level of Consciousness: Awake Patient Behavior: Guarded and Cooperative Mood Description: Constricted Affect Description: Calm Patient Cognition Impaired: Yes Ability to Follow Directions: Good Speech Pattern: Clear Hallucinations: None Delusions: Not Present Thought Process: Goal Oriented Thought Content: positive for Circumstantial Depressive Symptoms: Insomnia Judgement: Fair Diagnostics Vital Signs (24Hr): Vital Signs - 24 hr 08/04/21 20:19 08/04/21 20:30 08/04/21 20:32 Temperature 97.8 F Pulse Rate 61 61 61 Respiratory Rate 19 Blood Pressure 136/63 136/63 136/63 Pulse Oximetry 95 08/05/21 06:00 08/05/21 08:33 Temperature 96.3 F L Pulse Rate 56 56 Respiratory Rate Blood Pressure 137/63 137/63 Pulse Oximetry 96 Body Mass Index 29.8 Labs Results: 07/30/21 14:37 07/30/21 14:37 Medications Medications Current Medications Acetaminophen (Acetaminophen 325 Mg Tablet) 650 mg PO Q6H PRN PRN Reason: Headache/Pain Mild Scale (1-3) Acetaminophen/Butalbital/Caffeine (Butalb/Acetamin/Caff 50/325/40 Tablet) 1 tab PO Q4H PRN PRN Reason: Headache Al Hydroxide/Mg Hydroxide (Magnesium Hydrox/Alum Hydrox 30 Ml Oral.Susp) 30 ml PO Q6H PRN PRN Reason: Heartburn/Nausea Amlodipine Besylate (Amlodipine Besylate 5 Mg Tablet) 5 mg PO BEDTIME [facility]; Protocol Last Admin: 08/04/21 20:32 Dose: 5 mg Documented by: Aspirin (Aspirin Enteric Coated 81 Mg Tablet.) 81 mg PO DAILY [facility] Last Admin: 08/05/21 08:34 Dose: 81 mg Documented by: Atorvastatin Calcium (Atorvastatin Calcium 10 Mg Tablet) 10 mg PO BEDTIME [facility] Last Admin: 08/04/21 20:31 Dose: 10 mg Documented by: Divalproex Sodium (Divalproex Sodium 250 Mg Tablet.) 250 mg PO BID [facility] Last Admin: 08/05/21 08:33 Dose: 250 mg Documented by: Donepezil HCl (Donepezil Hcl 10 Mg Tablet) 10 mg PO BEDTIME [facility] Last Admin: 08/04/21 20:31 Dose: 10 mg Documented by: Hydroxyzine HCl (Hydroxyzine Hcl 25 Mg Tablet) 25 mg PO BEDTIME PRN PRN Reason: Anxiety Levothyroxine Sodium (Levothyroxine Sodium 112 Mcg Tablet) 112 mcg PO DAILY@0630 [facility] Last Admin: 08/05/21 05:46 Dose: 112 mcg Documented by: Losartan Potassium (Losartan Potassium 50 Mg Tablet) 100 mg PO DAILY [facility]; Protocol Last Admin: 08/05/21 08:33 Dose: 100 mg Documented by: Magnesium Hydroxide (Milk Of Magnesia 30 Ml Oral.Susp) 30 ml PO DAILY PRN PRN Reason: Constipation Melatonin (Melatonin 3 Mg Tablet) 18 mg PO BEDTIME [facility] Last Admin: 08/04/21 20:32 Dose: 18 mg Documented by: Memantine (Memantine Hcl 10 Mg Tablet) 10 mg PO BID [facility] Last Admin: 08/05/21 08:33 Dose: 10 mg Documented by: Metoprolol Tartrate (Metoprolol Tartrate 100 Mg Tablet) 100 mg PO BID [facility]; Protocol Last Admin: 08/05/21 08:33 Dose: 100 mg Documented by: Multivitamins/Vitamin C (Multivitamin Tablet) 1 tab PO DAILY [facility] Last Admin: 08/05/21 08:34 Dose: 1 tab Documented by: Omeprazole (Omeprazole 20 Mg Capsule.) 20 mg PO BID@0630,1630 [facility] Last Admin: 08/05/21 15:02 Dose: 20 mg Documented by: Pharmacy Consult (Consult Rx Perform Med Rec) 1 each MISCELLANE ONCE PRN PRN Reason: Consult order Pharmacy Consult (Consult Rx Perform Med Rec) 1 each MISCELLANE ONCE PRN PRN Reason: Consult order Quetiapine Fumarate (Quetiapine Fumarate 25 Mg Tablet) 25 mg PO DAILY [facility] Last Admin: 08/05/21 08:33 Dose: 25 mg Documented by: Quetiapine Fumarate (Quetiapine Fumarate 100 Mg Tablet) 100 mg PO BEDTIME [facility] Last Admin: 08/04/21 20:30 Dose: 100 mg Documented by: Ropinirole HCl (Ropinirole Hcl 1 Mg Tablet) 1.5 mg PO BEDTIME [facility] Last Admin: 08/04/21 20:31 Dose: 1.5 mg Documented by: Sertraline HCl (Sertraline Hcl 50 Mg Tablet) 50 mg PO BEDTIME [facility] Last Admin: 08/04/21 20:31 Dose: 50 mg Documented by: Vitamin D (Cholecalciferol (Vitamin D3) 25 Mcg Tablet) 25 mcg PO DAILY [facility] Last Admin: 08/05/21 08:34 Dose: 25 mcg Documented by: Allergies Allergies Allergy/AdvReac Type Severity Reaction Status Date / Time Penicillins [PENICILLINS] Allergy Intermediate Headache Verified 08/03/21 20:30 penicillin V Allergy Unknown swelling Verified 10/20/18 00:00 procaine [From NOVOCAIN] Allergy Unknown Headache Verified 08/03/21 20:30 Assessment & Plan Assessment & Plan (1) Mood disorder: Status: Acute Code(s): F39 - Unspecified mood [affective] disorder (2) Dementia: Status: Acute Code(s): F03.90 - Unspecified dementia without behavioral disturbance Assessment and Plan: Elderly female with a long history of dementia and psychotic symptoms, admitted for exacerbation of irritability and psychosis. Plan 1. Continue same medications. 2. Gather collateral information. 3. We will consider increase Seroquel if we see agitation in the next days I spent minutes with the patient and/or on the patient floor today, greater than?50% of which was spent counseling/coordinating care. Reason for contiued inpatient stay Substantial Risk for: inability to function, rapid decompensation and med/psych decompensation
[2021-08-05 18:00] VITALS: BP 173/74; PULSE 58; RESP 18; TEMP 36.6; O2SAT 96
[2021-08-05] MEDS: rOPINIRole HCL 1 MG TABLET 1.5 MG PO (23:40)
[2021-08-05] MEDS: Melatonin 3 MG TABLET 18 MG PO (23:41)
[2021-08-05 23:42] VITALS: BP 173/74; PULSE 59
[2021-08-05] MEDS: QUEtiapine Fumarate 100 MG TABLET PO (23:42)
[2021-08-05] MEDS: amLODIPine Besylate 5 MG TABLET PO (23:42)
[2021-08-05] MEDS: Atorvastatin Calcium 10 MG TABLET PO (23:46)
[2021-08-05] MEDS: Donepezil HCl 10 MG TABLET PO (23:47)
[2021-08-05] MEDS: Sertraline HCL 50 MG TABLET PO (23:49)
[2021-08-05 23:52] VITALS: BP 173/74; PULSE 58
[2021-08-06 06:00] VITALS: BP 135/72; PULSE 65; RESP 18; TEMP 35.8; O2SAT 95
[2021-08-06] MEDS: Levothyroxine Sodium 112 MCG TABLET PO (06:20)
[2021-08-06] MEDS: Omeprazole 20 MG CAPSULE.DR PO ×2 (06:20→17:56)
[2021-08-06] MEDS: QUEtiapine Fumarate 25 MG TABLET PO (09:05)
[2021-08-06] MEDS: Divalproex Sodium 250 MG TABLET.DR PO ×2 (09:05→21:05)
[2021-08-06 09:06] VITALS: BP 135/72; PULSE 65
[2021-08-06] MEDS: Losartan Potassium 50 MG TABLET 100 MG PO (09:06)
[2021-08-06] MEDS: Memantine HCl 10 MG TABLET PO ×2 (09:06→21:06)
[2021-08-06] MEDS: Cholecalciferol (Vitamin D3) 25 MCG TABLET PO (09:07)
[2021-08-06] MEDS: Multivitamin TABLET 1 TAB PO (09:07)
[2021-08-06] MEDS: Aspirin Enteric Coated 81 MG TABLET.DR PO (09:07)
[2021-08-06 09:08] VITALS: BP 135/72; PULSE 65
[2021-08-06] MEDS: Metoprolol Tartrate 100 MG TABLET PO ×2 (09:08→21:06)
--- NOTE | 2021-08-06 14:25 | P.PNPSI_ITS ---
Subjective Subjective Date of Service: 08/06/21 Reason For Visit: psychosis Subjective Notes: Conditional Voluntary Interim History: The nursing staff reported the patient remains most of the time in her room. She was seeing out for meals. On interview the patient reports that she is doing fine mildly anxious but able to cope with it. Her daughter is working at nights and she has limited ancillary services during the day. On interview, the patient denies new symptoms she is content with the current regimen. We will discuss for the possibility of discharge at the end of the week with ancillary services Mental Status Exam Mental Status Exam Patient Appearance: Unkempt Patient Orientation: Person and Situation Level of Consciousness: Awake and Appropriate Patient Behavior: Cooperative Mood Description: Constricted Affect Description: Constricted Patient Cognition Impaired: Yes Ability to Follow Directions: Good Speech Pattern: Clear Hallucinations: None Delusions: Not Present Thought Process: Slowed Thinking Thought Content: positive for Linear and positive for Poverty of Content Judgement: Fair Diagnostics Vital Signs (24Hr): Vital Signs - 24 hr 08/05/21 18:00 08/05/21 23:42 08/05/21 23:52 Temperature 98 F Pulse Rate 58 59 58 Respiratory Rate 18 Blood Pressure 173/74 H 173/74 H 173/74 H Pulse Oximetry 96 08/06/21 06:00 08/06/21 09:06 08/06/21 09:08 Temperature 96.4 F L Pulse Rate 65 65 65 Respiratory Rate 18 Blood Pressure 135/72 135/72 135/72 Pulse Oximetry 95 Body Mass Index 29.8 Labs Results: 07/30/21 14:37 07/30/21 14:37 Medications Medications Current Medications Acetaminophen (Acetaminophen 325 Mg Tablet) 650 mg PO Q6H PRN PRN Reason: Headache/Pain Mild Scale (1-3) Acetaminophen/Butalbital/Caffeine (Butalb/Acetamin/Caff 50/325/40 Tablet) 1 tab PO Q4H PRN PRN Reason: Headache Al Hydroxide/Mg Hydroxide (Magnesium Hydrox/Alum Hydrox 30 Ml Oral.Susp) 30 ml PO Q6H PRN PRN Reason: Heartburn/Nausea Amlodipine Besylate (Amlodipine Besylate 5 Mg Tablet) 5 mg PO BEDTIME [facility]; Protocol Last Admin: 08/05/21 23:42 Dose: 5 mg Documented by: Aspirin (Aspirin Enteric Coated 81 Mg Tablet.) 81 mg PO DAILY [facility] Last Admin: 08/06/21 09:07 Dose: 81 mg Documented by: Atorvastatin Calcium (Atorvastatin Calcium 10 Mg Tablet) 10 mg PO BEDTIME [facility] Last Admin: 08/05/21 23:46 Dose: 10 mg Documented by: Divalproex Sodium (Divalproex Sodium 250 Mg Tablet.) 250 mg PO BID [facility] Last Admin: 08/06/21 09:05 Dose: 250 mg Documented by: Donepezil HCl (Donepezil Hcl 10 Mg Tablet) 10 mg PO BEDTIME [facility] Last Admin: 08/05/21 23:47 Dose: 10 mg Documented by: Hydroxyzine HCl (Hydroxyzine Hcl 25 Mg Tablet) 25 mg PO BEDTIME PRN PRN Reason: Anxiety Levothyroxine Sodium (Levothyroxine Sodium 112 Mcg Tablet) 112 mcg PO DAILY@0630 [facility] Last Admin: 08/06/21 06:20 Dose: 112 mcg Documented by: Losartan Potassium (Losartan Potassium 50 Mg Tablet) 100 mg PO DAILY [facility]; Protocol Last Admin: 08/06/21 09:06 Dose: 100 mg Documented by: Magnesium Hydroxide (Milk Of Magnesia 30 Ml Oral.Susp) 30 ml PO DAILY PRN PRN Reason: Constipation Melatonin (Melatonin 3 Mg Tablet) 18 mg PO BEDTIME [facility] Last Admin: 08/05/21 23:41 Dose: 18 mg Documented by: Memantine (Memantine Hcl 10 Mg Tablet) 10 mg PO BID [facility] Last Admin: 08/06/21 09:06 Dose: 10 mg Documented by: Metoprolol Tartrate (Metoprolol Tartrate 100 Mg Tablet) 100 mg PO BID [facility]; Protocol Last Admin: 08/06/21 09:08 Dose: 100 mg Documented by: Multivitamins/Vitamin C (Multivitamin Tablet) 1 tab PO DAILY [facility] Last Admin: 08/06/21 09:07 Dose: 1 tab Documented by: Omeprazole (Omeprazole 20 Mg Capsule.) 20 mg PO BID@0630,1630 [facility] Last Admin: 08/06/21 06:20 Dose: 20 mg Documented by: Pharmacy Consult (Consult Rx Perform Med Rec) 1 each MISCELLANE ONCE PRN PRN Reason: Consult order Pharmacy Consult (Consult Rx Perform Med Rec) 1 each MISCELLANE ONCE PRN PRN Reason: Consult order Quetiapine Fumarate (Quetiapine Fumarate 25 Mg Tablet) 25 mg PO DAILY [facility] Last Admin: 08/06/21 09:05 Dose: 25 mg Documented by: Quetiapine Fumarate (Quetiapine Fumarate 100 Mg Tablet) 100 mg PO BEDTIME [facility] Last Admin: 08/05/21 23:42 Dose: 100 mg Documented by: Ropinirole HCl (Ropinirole Hcl 1 Mg Tablet) 1.5 mg PO BEDTIME [facility] Last Admin: 08/05/21 23:40 Dose: 1.5 mg Documented by: Sertraline HCl (Sertraline Hcl 50 Mg Tablet) 50 mg PO BEDTIME [facility] Last Admin: 08/05/21 23:49 Dose: 50 mg Documented by: Vitamin D (Cholecalciferol (Vitamin D3) 25 Mcg Tablet) 25 mcg PO DAILY [facility] Last Admin: 08/06/21 09:07 Dose: 25 mcg Documented by: Allergies Allergies Allergy/AdvReac Type Severity Reaction Status Date / Time Penicillins [PENICILLINS] Allergy Intermediate Headache Verified 08/03/21 20:30 penicillin V Allergy Unknown swelling Verified 10/20/18 00:00 procaine [From NOVOCAIN] Allergy Unknown Headache Verified 08/03/21 20:30 Assessment & Plan Assessment & Plan (1) Mood disorder: Status: Acute Code(s): F39 - Unspecified mood [affective] disorder (2) Dementia: Status: Acute Code(s): F03.90 - Unspecified dementia without behavioral disturbance Assessment and Plan: Elderly female with a long history of dementia and psychotic symptoms, admitted for exacerbation of irritability and psychosis. Plan 1. Continue same medications. 2. Gather collateral information. 3. We will consider increase Seroquel if we see agitation in the next days I spent minutes with the patient and/or on the patient floor today, greater than?50% of which was spent counseling/coordinating care. Reason for contiued inpatient stay Substantial Risk for: inability to function, rapid decompensation and med/psych decompensation
[2021-08-06 18:00] VITALS: BP 152/63; PULSE 60; RESP 20; TEMP 37.1; O2SAT 95
[2021-08-06 21:04] VITALS: BP 152/63; PULSE 60
[2021-08-06] MEDS: amLODIPine Besylate 5 MG TABLET PO (21:04)
[2021-08-06] MEDS: Melatonin 3 MG TABLET 18 MG PO (21:05)
[2021-08-06] MEDS: Donepezil HCl 10 MG TABLET PO (21:05)
[2021-08-06] MEDS: Atorvastatin Calcium 10 MG TABLET PO (21:05)
[2021-08-06 21:06] VITALS: BP 152/63; PULSE 60
[2021-08-06] MEDS: QUEtiapine Fumarate 100 MG TABLET PO (21:06)
[2021-08-06] MEDS: Sertraline HCL 50 MG TABLET PO (21:07)
[2021-08-06] MEDS: rOPINIRole HCL 1 MG TABLET 1.5 MG PO (21:07)
[2021-08-07] MEDS: Levothyroxine Sodium 112 MCG TABLET PO (06:35)
[2021-08-07] MEDS: Omeprazole 20 MG CAPSULE.DR PO ×2 (06:35→16:27)
[2021-08-07 08:35] VITALS: BP 139/61; PULSE 56
[2021-08-07] MEDS: Cholecalciferol (Vitamin D3) 25 MCG TABLET PO (08:35)
[2021-08-07] MEDS: Losartan Potassium 50 MG TABLET 100 MG PO (08:35)
[2021-08-07] MEDS: Aspirin Enteric Coated 81 MG TABLET.DR PO (08:35)
[2021-08-07 08:36] VITALS: BP 139/61; PULSE 56
[2021-08-07] MEDS: Multivitamin TABLET 1 TAB PO (08:36)
[2021-08-07] MEDS: QUEtiapine Fumarate 25 MG TABLET PO (08:36)
[2021-08-07] MEDS: Metoprolol Tartrate 100 MG TABLET PO ×2 (08:36→21:06)
[2021-08-07] MEDS: Divalproex Sodium 250 MG TABLET.DR PO ×2 (08:36→21:08)
[2021-08-07] MEDS: Memantine HCl 10 MG TABLET PO ×2 (08:36→21:07)
[2021-08-07 09:09] VITALS: BP 139/61; PULSE 56; TEMP 35.6; O2SAT 94
--- NOTE | 2021-08-07 12:03 | P.PNPSI_ITS ---
Subjective Subjective Date of Service: 08/07/21 Reason For Visit: psychosis Subjective Notes: Conditional Voluntary Interim History: The nursing staff reported the patient is pleasant and cooperative, compliant with treatment. The patient lives with her who is legally blind and both are severely impaired. Her daughter is working to get [employer] and other entitlements. So far psychiatrically she is stable. on team, we discussed the possibility of a new [place] test an assessment of his abilities. The patient wants to go home but definitely she will need services. On interview, the patient denies new symptoms Mental Status Exam Mental Status Exam Patient Appearance: Well Grooomed Patient Orientation: Person Level of Consciousness: Awake Patient Behavior: Cooperative Mood Description: Constricted Affect Description: Constricted Patient Cognition Impaired: Yes Ability to Follow Directions: Good Speech Pattern: Clear Hallucinations: None Delusions: Not Present Thought Process: Linear Thought Content: positive for Linear and positive for Poverty of Content Judgement: Fair Diagnostics Vital Signs (24Hr): Vital Signs - 24 hr 08/06/21 18:00 08/06/21 21:04 08/06/21 21:06 Temperature 98.7 F Pulse Rate 60 60 60 Respiratory Rate 20 Blood Pressure 152/63 H 152/63 H 152/63 H Pulse Oximetry 95 08/07/21 08:35 08/07/21 08:36 08/07/21 09:09 Temperature 96.1 F L Pulse Rate 56 56 56 Respiratory Rate Blood Pressure 139/61 139/61 139/61 Pulse Oximetry 94 Body Mass Index 29.8 Labs Results: 07/30/21 14:37 07/30/21 14:37 Medications Medications Current Medications Acetaminophen (Acetaminophen 325 Mg Tablet) 650 mg PO Q6H PRN PRN Reason: Headache/Pain Mild Scale (1-3) Acetaminophen/Butalbital/Caffeine (Butalb/Acetamin/Caff 50/325/40 Tablet) 1 tab PO Q4H PRN PRN Reason: Headache Al Hydroxide/Mg Hydroxide (Magnesium Hydrox/Alum Hydrox 30 Ml Oral.Susp) 30 ml PO Q6H PRN PRN Reason: Heartburn/Nausea Amlodipine Besylate (Amlodipine Besylate 5 Mg Tablet) 5 mg PO BEDTIME [facility]; Protocol Last Admin: 08/06/21 21:04 Dose: 5 mg Documented by: Aspirin (Aspirin Enteric Coated 81 Mg Tablet.) 81 mg PO DAILY [facility] Last Admin: 08/07/21 08:35 Dose: 81 mg Documented by: Atorvastatin Calcium (Atorvastatin Calcium 10 Mg Tablet) 10 mg PO BEDTIME [facility] Last Admin: 08/06/21 21:05 Dose: 10 mg Documented by: Divalproex Sodium (Divalproex Sodium 250 Mg Tablet.) 250 mg PO BID [facility] Last Admin: 08/07/21 08:36 Dose: 250 mg Documented by: Donepezil HCl (Donepezil Hcl 10 Mg Tablet) 10 mg PO BEDTIME [facility] Last Admin: 08/06/21 21:05 Dose: 10 mg Documented by: Hydroxyzine HCl (Hydroxyzine Hcl 25 Mg Tablet) 25 mg PO BEDTIME PRN PRN Reason: Anxiety Levothyroxine Sodium (Levothyroxine Sodium 112 Mcg Tablet) 112 mcg PO DAILY@0630 [facility] Last Admin: 08/07/21 06:35 Dose: 112 mcg Documented by: Losartan Potassium (Losartan Potassium 50 Mg Tablet) 100 mg PO DAILY [facility]; Protocol Last Admin: 08/07/21 08:35 Dose: 100 mg Documented by: Magnesium Hydroxide (Milk Of Magnesia 30 Ml Oral.Susp) 30 ml PO DAILY PRN PRN Reason: Constipation Melatonin (Melatonin 3 Mg Tablet) 18 mg PO BEDTIME [facility] Last Admin: 08/06/21 21:05 Dose: 18 mg Documented by: Memantine (Memantine Hcl 10 Mg Tablet) 10 mg PO BID [facility] Last Admin: 08/07/21 08:36 Dose: 10 mg Documented by: Metoprolol Tartrate (Metoprolol Tartrate 100 Mg Tablet) 100 mg PO BID [facility]; Protocol Last Admin: 08/07/21 08:36 Dose: 100 mg Documented by: Multivitamins/Vitamin C (Multivitamin Tablet) 1 tab PO DAILY [facility] Last Admin: 08/07/21 08:36 Dose: 1 tab Documented by: Omeprazole (Omeprazole 20 Mg Capsule.) 20 mg PO BID@0630,1630 [facility] Last Admin: 08/07/21 06:35 Dose: 20 mg Documented by: Pharmacy Consult (Consult Rx Perform Med Rec) 1 each MISCELLANE ONCE PRN PRN Reason: Consult order Pharmacy Consult (Consult Rx Perform Med Rec) 1 each MISCELLANE ONCE PRN PRN Reason: Consult order Quetiapine Fumarate (Quetiapine Fumarate 25 Mg Tablet) 25 mg PO DAILY [facility] Last Admin: 08/07/21 08:36 Dose: 25 mg Documented by: Quetiapine Fumarate (Quetiapine Fumarate 100 Mg Tablet) 100 mg PO BEDTIME [facility] Last Admin: 08/06/21 21:06 Dose: 100 mg Documented by: Ropinirole HCl (Ropinirole Hcl 1 Mg Tablet) 1.5 mg PO BEDTIME [facility] Last Admin: 08/06/21 21:07 Dose: 1.5 mg Documented by: Sertraline HCl (Sertraline Hcl 50 Mg Tablet) 50 mg PO BEDTIME [facility] Last Admin: 08/06/21 21:07 Dose: 50 mg Documented by: Vitamin D (Cholecalciferol (Vitamin D3) 25 Mcg Tablet) 25 mcg PO DAILY [facility] Last Admin: 08/07/21 08:35 Dose: 25 mcg Documented by: Allergies Allergies Allergy/AdvReac Type Severity Reaction Status Date / Time Penicillins [PENICILLINS] Allergy Intermediate Headache Verified 08/03/21 20:30 penicillin V Allergy Unknown swelling Verified 10/20/18 00:00 procaine [From [place]OV[place]AIN] Allergy Unknown Headache Verified 08/03/21 20:30 Assessment & Plan Assessment & Plan (1) Mood disorder: Status: Acute Code(s): F39 - Unspecified mood [affective] disorder (2) Dementia: Status: Acute Code(s): F03.90 - Unspecified dementia without behavioral disturbance Assessment and Plan: Elderly female with a long history of dementia and psychotic symptoms, admitted for exacerbation of irritability and psychosis. Plan 1. Continue same medications. 2. Gather collateral information. 3. We will consider increase Seroquel if we see agitation in the next days. 4. We will reassess discharge planning according to the results of occupational therapy I spent minutes with the patient and/or on the patient floor today, grea ter than?50% of which was spent counseling/coordinating care. Reason for contiued inpatient stay Substantial Risk for: inability to function, rapid decompensation and med/psych decompensation
[2021-08-07 18:00] VITALS: BP 159/68; PULSE 61; RESP 18; TEMP 36.6; O2SAT 95
[2021-08-07] MEDS: Melatonin 3 MG TABLET 18 MG PO (21:03)
[2021-08-07 21:04] VITALS: BP 157/70; PULSE 56
[2021-08-07] MEDS: amLODIPine Besylate 5 MG TABLET PO (21:04)
[2021-08-07] MEDS: rOPINIRole HCL 1 MG TABLET 1.5 MG PO (21:05)
[2021-08-07 21:06] VITALS: BP 157/70; PULSE 56
[2021-08-07] MEDS: Donepezil HCl 10 MG TABLET PO (21:07)
[2021-08-07] MEDS: Atorvastatin Calcium 10 MG TABLET PO (21:08)
[2021-08-07] MEDS: Sertraline HCL 50 MG TABLET PO (21:08)
[2021-08-07] MEDS: QUEtiapine Fumarate 100 MG TABLET PO (21:09)
[2021-08-08] MEDS: Omeprazole 20 MG CAPSULE.DR PO ×2 (05:41→16:42)
[2021-08-08] MEDS: Levothyroxine Sodium 112 MCG TABLET PO (05:41)
[2021-08-08 06:00] VITALS: BP 122/60; PULSE 55; TEMP 36.9; O2SAT 97
[2021-08-08 09:40] VITALS: BP 122/60; PULSE 55
[2021-08-08] MEDS: Losartan Potassium 50 MG TABLET 100 MG PO (09:40)
[2021-08-08] MEDS: Aspirin Enteric Coated 81 MG TABLET.DR PO (09:40)
[2021-08-08] MEDS: Cholecalciferol (Vitamin D3) 25 MCG TABLET PO (09:40)
[2021-08-08] MEDS: Multivitamin TABLET 1 TAB PO (09:40)
[2021-08-08 09:41] VITALS: BP 122/60; PULSE 55
[2021-08-08] MEDS: Divalproex Sodium 250 MG TABLET.DR PO ×2 (09:41→21:08)
[2021-08-08] MEDS: Metoprolol Tartrate 100 MG TABLET PO ×2 (09:41→21:10)
[2021-08-08] MEDS: QUEtiapine Fumarate 25 MG TABLET PO (09:41)
[2021-08-08] MEDS: Memantine HCl 10 MG TABLET PO ×2 (09:41→21:08)
--- NOTE | 2021-08-08 14:49 | HO.PSYCHPN ---
Subjective Subjective Date of Service: 08/08/21 Reason For Visit: psychosis Interim History: The nursing staff reports that the patient remains mostly in her room, she comes out for meals and she is pleasant and compliant with treatment. The occupational therapist did a [place] test and she scored 13/30. The social services coordinator talked to her daughter and eventually we have on the form of conversation with her and the patient and we decided to keep Seroquel at the present dose to avoid over-sedation. The social services coordinator will arrange ancillary services for discharge most likely RT next week. On interview, the patient denies new symptoms she is pleasant and cooperative but isolative Mental Status Exam Mental Status Exam Patient Appearance: Well Grooomed Patient Orientation: Person and Situation Level of Consciousness: Awake and Appropriate Patient Behavior: Guarded, Cooperative and Passive Mood Description: Constricted Affect Description: Constricted Patient Cognition Impaired: Yes Ability to Follow Directions: Fair Speech Pattern: Clear Delusions: Paranoid Ideation Thought Process: Evasive Thought Content: positive for Circumstantial and positive for Poverty of Content Judgement: Fair Diagnostics Vital Signs (24Hr): Vital Signs - 24 hr 08/07/21 18:00 08/07/21 21:04 08/07/21 21:06 Temperature 97.8 F Pulse Rate 61 56 56 Respiratory Rate 18 Blood Pressure 159/68 H 157/70 H 157/70 H Pulse Oximetry 95 08/08/21 06:00 08/08/21 09:40 08/08/21 09:41 Temperature 98.4 F Pulse Rate 55 55 55 Respiratory Rate Blood Pressure 122/60 122/60 122/60 Pulse Oximetry 97 Body Mass Index 29.8 Labs Results: 07/30/21 14:37 07/30/21 14:37 Medications Medications Current Medications Acetaminophen (Acetaminophen 325 Mg Tablet) 650 mg PO Q6H PRN PRN Reason: Headache/Pain Mild Scale (1-3) Acetaminophen/Butalbital/Caffeine (Butalb/Acetamin/Caff 50/325/40 Tablet) 1 tab PO Q4H PRN PRN Reason: Headache Al Hydroxide/Mg Hydroxide (Magnesium Hydrox/Alum Hydrox 30 Ml Oral.Susp) 30 ml PO Q6H PRN PRN Reason: Heartburn/Nausea Amlodipine Besylate (Amlodipine Besylate 5 Mg Tablet) 5 mg PO BEDTIME [facility]; Protocol Last Admin: 08/07/21 21:04 Dose: 5 mg Documented by: Aspirin (Aspirin Enteric Coated 81 Mg Tablet.) 81 mg PO DAILY [facility] Last Admin: 08/08/21 09:40 Dose: 81 mg Documented by: Atorvastatin Calcium (Atorvastatin Calcium 10 Mg Tablet) 10 mg PO BEDTIME [facility] Last Admin: 08/07/21 21:08 Dose: 10 mg Documented by: Divalproex Sodium (Divalproex Sodium 250 Mg Tablet.) 250 mg PO BID [facility] Last Admin: 08/08/21 09:41 Dose: 250 mg Documented by: Donepezil HCl (Donepezil Hcl 10 Mg Tablet) 10 mg PO BEDTIME [facility] Last Admin: 08/07/21 21:07 Dose: 10 mg Documented by: Hydroxyzine HCl (Hydroxyzine Hcl 25 Mg Tablet) 25 mg PO BEDTIME PRN PRN Reason: Anxiety Levothyroxine Sodium (Levothyroxine Sodium 112 Mcg Tablet) 112 mcg PO DAILY@0630 [facility] Last Admin: 08/08/21 05:41 Dose: 112 mcg Documented by: Losartan Potassium (Losartan Potassium 50 Mg Tablet) 100 mg PO DAILY [facility]; Protocol Last Admin: 08/08/21 09:40 Dose: 100 mg Documented by: Magnesium Hydroxide (Milk Of Magnesia 30 Ml Oral.Susp) 30 ml PO DAILY PRN PRN Reason: Constipation Melatonin (Melatonin 3 Mg Tablet) 18 mg PO BEDTIME [facility] Last Admin: 08/07/21 21:03 Dose: 18 mg Documented by: Memantine (Memantine Hcl 10 Mg Tablet) 10 mg PO BID [facility] Last Admin: 08/08/21 09:41 Dose: 10 mg Documented by: Metoprolol Tartrate (Metoprolol Tartrate 100 Mg Tablet) 100 mg PO BID [facility]; Protocol Last Admin: 08/08/21 09:41 Dose: 100 mg Documented by: Multivitamins/Vitamin C (Multivitamin Tablet) 1 tab PO DAILY [facility] Last Admin: 08/08/21 09:40 Dose: 1 tab Documented by: Omeprazole (Omeprazole 20 Mg Capsule.) 20 mg PO BID@0630,1630 [facility] Last Admin: 08/08/21 05:41 Dose: 20 mg Documented by: Pharmacy Consult (Consult Rx Perform Med Rec) 1 each MISCELLANE ONCE PRN PRN Reason: Consult order Pharmacy Consult (Consult Rx Perform Med Rec) 1 each MISCELLANE ONCE PRN PRN Reason: Consult order Quetiapine Fumarate (Quetiapine Fumarate 25 Mg Tablet) 25 mg PO DAILY [facility] Last Admin: 08/08/21 09:41 Dose: 25 mg Documented by: Quetiapine Fumarate (Quetiapine Fumarate 100 Mg Tablet) 100 mg PO BEDTIME [facility] Last Admin: 08/07/21 21:09 Dose: 100 mg Documented by: Ropinirole HCl (Ropinirole Hcl 1 Mg Tablet) 1.5 mg PO BEDTIME [facility] Last Admin: 08/07/21 21:05 Dose: 1.5 mg Documented by: Sertraline HCl (Sertraline Hcl 50 Mg Tablet) 50 mg PO BEDTIME [facility] Last Admin: 08/07/21 21:08 Dose: 50 mg Documented by: Vitamin D (Cholecalciferol (Vitamin D3) 25 Mcg Tablet) 25 mcg PO DAILY [facility] Last Admin: 08/08/21 09:40 Dose: 25 mcg Documented by: Allergies Allergies Allergy/AdvReac Type Severity Reaction Status Date / Time Penicillins [PENICILLINS] Allergy Intermediate Headache Verified 08/03/21 20:30 penicillin V Allergy Unknown swelling Verified 10/20/18 00:00 procaine [From NOVOCAIN] Allergy Unknown Headache Verified 08/03/21 20:30 Assessment & Plan Assessment & Plan (1) Mood disorder: Status: Acute Code(s): F39 - Unspecified mood [affective] disorder (2) Dementia: Status: Acute Code(s): F03.90 - Unspecified dementia without behavioral disturbance Assessment and Plan: Elderly female with a long history of dementia and psychotic symptoms, admitted for exacerbation of irritability and psychosis. Plan 1. Continue same medications. 2. Gather collateral information. 3. We will consider increase Seroquel if we see agitation in the next days. 4. We will reassess discharge planning according to the results of occupational therapy I spent minutes with the patient and/or on the patient floor today, greater than?50% of which was spent counseling/coordinating care. Reason for contiued inpatient stay Substantial Risk for: inability to function, rapid decompensation and med/psych decompensation
[2021-08-08] MEDS: Melatonin 3 MG TABLET 18 MG PO (21:07)
[2021-08-08] MEDS: QUEtiapine Fumarate 100 MG TABLET PO (21:08)
[2021-08-08] MEDS: Sertraline HCL 50 MG TABLET PO (21:08)
[2021-08-08] MEDS: Atorvastatin Calcium 10 MG TABLET PO (21:08)
[2021-08-08] MEDS: Donepezil HCl 10 MG TABLET PO (21:08)
[2021-08-08] MEDS: rOPINIRole HCL 1 MG TABLET 1.5 MG PO (21:08)
[2021-08-08 21:09] VITALS: BP 144/93; PULSE 62
[2021-08-08] MEDS: amLODIPine Besylate 5 MG TABLET PO (21:09)
[2021-08-08 21:10] VITALS: BP 144/93; PULSE 62
[2021-08-08 21:34] VITALS: BP 144/93; PULSE 62; RESP 17; TEMP 36.6; O2SAT 94
[2021-08-09 06:00] VITALS: PULSE 78; TEMP 36.6
[2021-08-09] MEDS: Levothyroxine Sodium 112 MCG TABLET PO (06:39)
[2021-08-09] MEDS: Omeprazole 20 MG CAPSULE.DR PO (06:39)
[2021-08-09] MEDS: Cholecalciferol (Vitamin D3) 25 MCG TABLET PO (09:32)
[2021-08-09] MEDS: QUEtiapine Fumarate 25 MG TABLET PO (09:32)
[2021-08-09] MEDS: Metoprolol Tartrate 100 MG TABLET PO ×2 (09:32→20:46)
[2021-08-09] MEDS: Memantine HCl 10 MG TABLET PO ×2 (09:32→20:47)
[2021-08-09] MEDS: Multivitamin TABLET 1 TAB PO (09:32)
[2021-08-09] MEDS: Divalproex Sodium 250 MG TABLET.DR PO ×2 (09:32→20:46)
[2021-08-09] MEDS: Aspirin Enteric Coated 81 MG TABLET.DR PO (09:32)
[2021-08-09] MEDS: Losartan Potassium 50 MG TABLET 100 MG PO (09:32)
--- NOTE | 2021-08-09 14:01 | HO.PSYCHPN ---
Subjective Subjective Date of Service: 08/09/21 Reason For Visit: psychosis Subjective Notes: Conditional Voluntary Interim History: The nursing staff reported that the patient has being on good mood, she stated that yesterday had the best day here. She is mostly isolated in her room but she is doing overall fine. On interview the patient denies new symptoms but she is isolative in her room. Mental Status Exam Mental Status Exam Patient Appearance: Well Grooomed Patient Orientation: Person and Situation Level of Consciousness: Awake and Disoriented Patient Behavior: Cooperative and Passive Mood Description: Constricted Affect Description: Calm Patient Cognition Impaired: Yes Ability to Follow Directions: Good Speech Pattern: Clear Hallucinations: None Delusions: Not Present Thought Process: Distracted and Evasive Thought Content: positive for Circumstantial Judgement: Fair Diagnostics Vital Signs (24Hr): Vital Signs - 24 hr 08/08/21 21:09 08/08/21 21:10 08/08/21 21:34 Temperature 97.8 F Pulse Rate 62 62 62 Respiratory Rate 17 Blood Pressure 144/93 H 144/93 H 144/93 H Pulse Oximetry 94 Body Mass Index 29.8 Labs Results: 07/30/21 14:37 07/30/21 14:37 Medications Medications Current Medications Acetaminophen (Acetaminophen 325 Mg Tablet) 650 mg PO Q6H PRN PRN Reason: Headache/Pain Mild Scale (1-3) Acetaminophen/Butalbital/Caffeine (Butalb/Acetamin/Caff 50/325/40 Tablet) 1 tab PO Q4H PRN PRN Reason: Headache Al Hydroxide/Mg Hydroxide (Magnesium Hydrox/Alum Hydrox 30 Ml Oral.Susp) 30 ml PO Q6H PRN PRN Reason: Heartburn/Nausea Amlodipine Besylate (Amlodipine Besylate 5 Mg Tablet) 5 mg PO BEDTIME [facility] OF [facility]; Protocol Last Admin: 08/08/21 21:09 Dose: 5 mg Documented by: Aspirin (Aspirin Enteric Coated 81 Mg Tablet.) 81 mg PO DAILY [facility] Last Admin: 08/09/21 09:32 Dose: 81 mg Documented by: Atorvastatin Calcium (Atorvastatin Calcium 10 Mg Tablet) 10 mg PO BEDTIME [facility] Last Admin: 08/08/21 21:08 Dose: 10 mg Documented by: Divalproex Sodium (Divalproex Sodium 250 Mg Tablet.) 250 mg PO BID [facility] Last Admin: 08/09/21 09:32 Dose: 250 mg Documented by: Donepezil HCl (Donepezil Hcl 10 Mg Tablet) 10 mg PO BEDTIME [facility] Last Admin: 08/08/21 21:08 Dose: 10 mg Documented by: Hydroxyzine HCl (Hydroxyzine Hcl 25 Mg Tablet) 25 mg PO BEDTIME PRN PRN Reason: Anxiety Levothyroxine Sodium (Levothyroxine Sodium 112 Mcg Tablet) 112 mcg PO DAILY@0630 [facility] Last Admin: 08/09/21 06:39 Dose: 112 mcg Documented by: Losartan Potassium (Losartan Potassium 50 Mg Tablet) 100 mg PO DAILY [facility]; Protocol Last Admin: 08/09/21 09:32 Dose: 100 mg Documented by: Magnesium Hydroxide (Milk Of Magnesia 30 Ml Oral.Susp) 30 ml PO DAILY PRN PRN Reason: Constipation Melatonin (Melatonin 3 Mg Tablet) 18 mg PO BEDTIME [facility] Last Admin: 08/08/21 21:07 Dose: 18 mg Documented by: Memantine (Memantine Hcl 10 Mg Tablet) 10 mg PO BID [facility] Last Admin: 08/09/21 09:32 Dose: 10 mg Documented by: Metoprolol Tartrate (Metoprolol Tartrate 100 Mg Tablet) 100 mg PO BID [facility]; Protocol Last Admin: 08/09/21 09:32 Dose: 100 mg Documented by: Multivitamins/Vitamin C (Multivitamin Tablet) 1 tab PO DAILY [facility] Last Admin: 08/09/21 09:32 Dose: 1 tab Documented by: Omeprazole (Omeprazole 20 Mg Capsule.Dr) 20 mg PO BID@0630,1630 [facility] Last Admin: 08/09/21 06:39 Dose: 20 mg Documented by: Pharmacy Consult (Consult Rx Perform Med Rec) 1 each MISCELLANE ONCE PRN PRN Reason: Consult order Pharmacy Consult (Consult Rx Perform Med Rec) 1 each MISCELLANE ONCE PRN PRN Reason: Consult order Quetiapine Fumarate (Quetiapine Fumarate 25 Mg Tablet) 25 mg PO DAILY [facility] Last Admin: 08/09/21 09:32 Dose: 25 mg Documented by: Quetiapine Fumarate (Quetiapine Fumarate 100 Mg Tablet) 100 mg PO BEDTIME [facility] Last Admin: 08/08/21 21:08 Dose: 100 mg Documented by: Ropinirole HCl (Ropinirole Hcl 1 Mg Tablet) 1.5 mg PO BEDTIME [facility] Last Admin: 08/08/21 21:08 Dose: 1.5 mg Documented by: Sertraline HCl (Sertraline Hcl 50 Mg Tablet) 50 mg PO BEDTIME [facility] Last Admin: 08/08/21 21:08 Dose: 50 mg Documented by: Vitamin D (Cholecalciferol (Vitamin D3) 25 Mcg Tablet) 25 mcg PO DAILY [facility] Last Admin: 08/09/21 09:32 Dose: 25 mcg Documented by: Allergies Allergies Allergy/AdvReac Type Severity Reaction Status Date / Time Penicillins [PENICILLINS] Allergy Intermediate Headache Verified 08/03/21 20:30 penicillin V Allergy Unknown swelling Verified 10/20/18 00:00 procaine [From NOVOCAIN] Allergy Unknown Headache Verified 08/03/21 20:30 Assessment & Plan Assessment & Plan (1) Mood disorder: Status: Acute Code(s): F39 - Unspecified mood [affective] disorder (2) Dementia: Status: Acute Code(s): F03.90 - Unspecified dementia without behavioral disturbance Assessment and Plan: Elderly female with a long history of dementia and psychotic symptoms, admitted for exacerbation of irritability and psychosis. Plan 1. Continue same medications. 2. Gather collateral information. 3. We will consider increase Seroquel if we see agitation in the next days. 4. We will reassess discharge planning according to the results of occupational therapy I spent minutes with the patient and/or on the patient floor today, greater than?50% of which was spent counseling/coordinating care. Reason for contiued inpatient stay Substantial Risk for: inability to function, rapid decompensation and med/psych decompensation
[2021-08-09 20:00] VITALS: BP 138/58; PULSE 61; RESP 18; TEMP 36.7; O2SAT 95
[2021-08-09] MEDS: Melatonin 3 MG TABLET 18 MG PO (20:44)
[2021-08-09] MEDS: Donepezil HCl 10 MG TABLET PO (20:45)
[2021-08-09] MEDS: rOPINIRole HCL 1 MG TABLET 1.5 MG PO (20:45)
[2021-08-09 20:46] VITALS: BP 138/58; PULSE 61
[2021-08-09] MEDS: amLODIPine Besylate 5 MG TABLET PO (20:46)
[2021-08-09] MEDS: Sertraline HCL 50 MG TABLET PO (20:46)
[2021-08-09] MEDS: QUEtiapine Fumarate 100 MG TABLET PO (20:46)
[2021-08-09] MEDS: Atorvastatin Calcium 10 MG TABLET PO (20:47)
[2021-08-09 22:00] VITALS: BP 184/76; PULSE 61; RESP 18; TEMP 37.4; O2SAT 96
[2021-08-09 23:19] LABS: Troponin-I High Sensitivity 5.5 ng/L (<3.5-17.0)
--- NOTE | 2021-08-09 23:28 | PM.EVENT ---
Event Note Date of Service: 08/09/21 Event Note: Pt complaining of pain in her chest, states pain is 10/10, normal bowel sounds, soft, tender to palpation in lower quadrants, non-distended. Pt does not remember last time she had a BM, constipated, nauseous. BP 184/76 and temp 99. Pt denies hx of GERD. Says she has not had pain like this before. Discussed with hospitalist and per recommendation, will order EKG, troponin, and urinalysis.
--- NOTE | 2021-08-10 00:52 | ECG_ITS ---
Test Reason : CHEST PAIN Blood Pressure : / mmHG Vent. Rate : 059 BPM Atrial Rate : 059 BPM P-R Int : 142 ms QRS Dur : 108 ms QT Int : 404 ms P-R-T Axes : 063 -28 042 degrees QTc Int : 399 ms Sinus bradycardia Nonspecific ST and T wave abnormality Left axis deviation Intra-ventricular conduction delay Abnormal ECG When compared with ECG of 31-JUL-2021 13:34, No significant change was found Referred By: Laury Aponte Electronically Signed By:MARIBETH GALARZA MD
[2021-08-10] MEDS: Omeprazole 20 MG CAPSULE.DR PO ×2 (06:39→17:30)
[2021-08-10] MEDS: Levothyroxine Sodium 112 MCG TABLET PO (06:39)
[2021-08-10 09:12] VITALS: BP 171/72; PULSE 62; RESP 16; TEMP 36.8; O2SAT 96
--- NOTE | 2021-08-10 09:41 | HO.PSYCHPN ---
Subjective Subjective Date of Service: 08/10/21 Reason For Visit: psychosis Subjective Notes: Conditional Voluntary Interim History: The nursing staff reported that the patient had a good evening. But at 22:00 she complained of abdominal pain and chest pain. She had an EKG and other labs that were normal. On interview, the patient denies new symptoms, she is scheduled for discharge early next week. Review of Systems Acute medical concerns: No Medical Review of Systems: unchanged Mental Status Exam Mental Status Exam Patient Appearance: Disheveled Patient Orientation: Person Level of Consciousness: Awake Patient Behavior: Cooperative Mood Description: Constricted Affect Description: Labile Patient Cognition Impaired: Yes Ability to Follow Directions: Fair Speech Pattern: Clear Delusions: Paranoid Ideation Thought Process: Distracted Thought Content: positive for Linear and positive for Poverty of Content Judgement: Fair Diagnostics Vital Signs (24Hr): Vital Signs - 24 hr 08/09/21 20:00 08/09/21 20:46 08/09/21 22:00 Temperature 98.1 F 99.3 F Pulse Rate 61 61 61 Respiratory Rate 18 18 Blood Pressure 138/58 L 138/58 L 184/76 H Pulse Oximetry 95 96 08/10/21 09:12 Temperature 98.2 F Pulse Rate 62 Respiratory Rate 16 Blood Pressure 171/72 H Pulse Oximetry 96 Body Mass Index 29.8 Labs Results: 07/30/21 14:37 07/30/21 14:37 Labs: Laboratory Results - last 48 hr 08/09/21 22:49 Troponin I High Sens 5.5 Medications Medications Current Medications Acetaminophen (Acetaminophen 325 Mg Tablet) 650 mg PO Q6H PRN PRN Reason: Headache/Pain Mild Scale (1-3) Acetaminophen/Butalbital/Caffeine (Butalb/Acetamin/Caff 50/325/40 Tablet) 1 tab PO Q4H PRN PRN Reason: Headache Al Hydroxide/Mg Hydroxide (Magnesium Hydrox/Alum Hydrox 30 Ml Oral.Susp) 30 ml PO Q6H PRN PRN Reason: Heartburn/Nausea Amlodipine Besylate (Amlodipine Besylate 5 Mg Tablet) 5 mg PO BEDTIME [facility]; Protocol Last Admin: 08/09/21 20:46 Dose: 5 mg Documented by: Aspirin (Aspirin Enteric Coated 81 Mg Tablet.) 81 mg PO DAILY [facility] Last Admin: 08/09/21 09:32 Dose: 81 mg Documented by: Atorvastatin Calcium (Atorvastatin Calcium 10 Mg Tablet) 10 mg PO BEDTIME [facility] Last Admin: 08/09/21 20:47 Dose: 10 mg Documented by: Divalproex Sodium (Divalproex Sodium 250 Mg Tablet.) 250 mg PO BID [facility] Last Admin: 08/09/21 20:46 Dose: 250 mg Documented by: Donepezil HCl (Donepezil Hcl 10 Mg Tablet) 10 mg PO BEDTIME [facility] Last Admin: 08/09/21 20:45 Dose: 10 mg Documented by: Hydroxyzine HCl (Hydroxyzine Hcl 25 Mg Tablet) 25 mg PO BEDTIME PRN PRN Reason: Anxiety Levothyroxine Sodium (Levothyroxine Sodium 112 Mcg Tablet) 112 mcg PO DAILY@0630 [facility] Last Admin: 08/10/21 06:39 Dose: 112 mcg Documented by: Losartan Potassium (Losartan Potassium 50 Mg Tablet) 100 mg PO DAILY [facility]; Protocol Last Admin: 08/09/21 09:32 Dose: 100 mg Documented by: Magnesium Hydroxide (Milk Of Magnesia 30 Ml Oral.Susp) 30 ml PO DAILY PRN PRN Reason: Constipation Melatonin (Melatonin 3 Mg Tablet) 18 mg PO BEDTIME [facility] Last Admin: 08/09/21 20:44 Dose: 18 mg Documented by: Memantine (Memantine Hcl 10 Mg Tablet) 10 mg PO BID [facility] Last Admin: 08/09/21 20:47 Dose: 10 mg Documented by: Metoprolol Tartrate (Metoprolol Tartrate 100 Mg Tablet) 100 mg PO BID [facility]; Protocol Last Admin: 08/09/21 20:46 Dose: 100 mg Documented by: Multivitamins/Vitamin C (Multivitamin Tablet) 1 tab PO DAILY [facility] Last Admin: 08/09/21 09:32 Dose: 1 tab Documented by: Omeprazole (Omeprazole 20 Mg Capsule.) 20 mg PO BID@0630,1630 [facility] Last Admin: 08/10/21 06:39 Dose: 20 mg Documented by: Pharmacy Consult (Consult Rx Perform Med Rec) 1 each MISCELLANE ONCE PRN PRN Reason: Consult order Pharmacy Consult (Consult Rx Perform Med Rec) 1 each MISCELLANE ONCE PRN PRN Reason: Consult order Quetiapine Fumarate (Quetiapine Fumarate 25 Mg Tablet) 25 mg PO DAILY [facility] Last Admin: 08/09/21 09:32 Dose: 25 mg Documented by: Quetiapine Fumarate (Quetiapine Fumarate 100 Mg Tablet) 100 mg PO BEDTIME [facility] Last Admin: 08/09/21 20:46 Dose: 100 mg Documented by: Ropinirole HCl (Ropinirole Hcl 1 Mg Tablet) 1.5 mg PO BEDTIME [facility] Last Admin: 08/09/21 20:45 Dose: 1.5 mg Documented by: Sertraline HCl (Sertraline Hcl 50 Mg Tablet) 50 mg PO BEDTIME [facility] Last Admin: 08/09/21 20:46 Dose: 50 mg Documented by: Vitamin D (Cholecalciferol (Vitamin D3) 25 Mcg Tablet) 25 mcg PO DAILY [facility] Last Admin: 08/09/21 09:32 Dose: 25 mcg Documented by: Allergies Allergies Allergy/AdvReac Type Severity Reaction Status Date / Time Penicillins [PENICILLINS] Allergy Intermediate Headache Verified 08/03/21 20:30 penicillin V Allergy Unknown swelling Verified 10/20/18 00:00 procaine [From NOV[place]AIN] Allergy Unknown Headache Verified 08/03/21 20:30 Assessment & Plan Assessment & Plan (1) Mood disorder: Status: Acute Code(s): F39 - Unspecified mood [affective] disorder (2) Dementia: Status: Acute Code(s): F03.90 - Unspecified dementia without behavioral disturbance Assessment and Plan: Elderly female with a long history of dementia and psychotic symptoms, admitted for exacerbation of irritability and psychosis. Plan 1. Continue same medications. 2. Gather collateral information. 3. We will consider increase Seroquel if we see agitation in the next days. 4. We will reassess discharge planning according to the results of occupational therapy I spent minutes with the patient and/or on the patient floor today, greater than?50% of which was spent counseling/coordinating care. Reason for contiued inpatient stay Substantial Risk for: inability to function, rapid decompensation and med/psych decompensation
[2021-08-10] MEDS: Cholecalciferol (Vitamin D3) 25 MCG TABLET PO (10:03)
[2021-08-10 10:04] VITALS: BP 171/72; PULSE 62
[2021-08-10] MEDS: Losartan Potassium 50 MG TABLET 100 MG PO (10:04)
[2021-08-10] MEDS: Multivitamin TABLET 1 TAB PO (10:04)
[2021-08-10] MEDS: Memantine HCl 10 MG TABLET PO ×2 (10:04→20:18)
[2021-08-10 10:05] VITALS: BP 171/72; PULSE 62
[2021-08-10] MEDS: Aspirin Enteric Coated 81 MG TABLET.DR PO (10:05)
[2021-08-10] MEDS: QUEtiapine Fumarate 25 MG TABLET PO (10:05)
[2021-08-10] MEDS: Divalproex Sodium 250 MG TABLET.DR PO ×2 (10:05→20:16)
[2021-08-10] MEDS: Metoprolol Tartrate 100 MG TABLET PO ×2 (10:05→20:18)
[2021-08-10 19:32] VITALS: BP 135/58; PULSE 60; RESP 17; TEMP 36.7; O2SAT 96
[2021-08-10] MEDS: rOPINIRole HCL 1 MG TABLET 1.5 MG PO (20:16)
[2021-08-10 20:18] VITALS: BP 135/58; PULSE 60
[2021-08-10] MEDS: Melatonin 3 MG TABLET 18 MG PO (20:18)
[2021-08-10] MEDS: QUEtiapine Fumarate 100 MG TABLET PO (20:18)
[2021-08-10] MEDS: Sertraline HCL 50 MG TABLET PO (20:18)
[2021-08-10] MEDS: Donepezil HCl 10 MG TABLET PO (20:18)
[2021-08-10] MEDS: amLODIPine Besylate 5 MG TABLET PO (20:18)
[2021-08-10] MEDS: Atorvastatin Calcium 10 MG TABLET PO (20:19)
[2021-08-11] MEDS: Omeprazole 20 MG CAPSULE.DR PO (05:30)
[2021-08-11] MEDS: Levothyroxine Sodium 112 MCG TABLET PO (05:30)
[2021-08-11 08:27] VITALS: BP 140/62; PULSE 57; RESP 17; TEMP 36.7; O2SAT 96
[2021-08-11 08:29] VITALS: BP 140/62; PULSE 57
[2021-08-11] MEDS: Cholecalciferol (Vitamin D3) 25 MCG TABLET PO (08:29)
[2021-08-11] MEDS: QUEtiapine Fumarate 25 MG TABLET PO (08:29)
[2021-08-11] MEDS: Losartan Potassium 50 MG TABLET 100 MG PO (08:29)
[2021-08-11] MEDS: Metoprolol Tartrate 100 MG TABLET PO ×2 (08:29→21:42)
[2021-08-11] MEDS: Divalproex Sodium 250 MG TABLET.DR PO ×2 (08:30→21:41)
[2021-08-11] MEDS: Memantine HCl 10 MG TABLET PO ×2 (08:30→21:42)
[2021-08-11] MEDS: Aspirin Enteric Coated 81 MG TABLET.DR PO (08:31)
[2021-08-11] MEDS: Multivitamin TABLET 1 TAB PO (08:31)
--- NOTE | 2021-08-11 09:20 | P.PNPSI_ITS ---
Subjective Subjective Date of Service: 08/11/21 Reason For Visit: psychosis Subjective Notes: Conditional Voluntary Interim History: The nursing staff reported that the patient was mostly on her room, isolative, self-dialoguing but compliant with treatment. VS stable. On interview, the patient reported no new symptoms, feeling OK. Mental Status Exam Mental Status Exam Patient Appearance: Well Grooomed Patient Orientation: Person and Situation Level of Consciousness: Awake Patient Behavior: Passive and Suspicious Mood Description: Constricted Affect Description: Constricted Patient Cognition Impaired: Yes Ability to Follow Directions: Good Speech Pattern: Clear Hallucinations: Auditory Delusions: Paranoid Ideation Thought Process: Linear Thought Content: positive for Perseveration, positive for Poverty of Content and positive for Preoccupation Judgement: Fair Diagnostics Vital Signs (24Hr): Vital Signs - 24 hr 08/10/21 19:32 08/10/21 20:18 08/11/21 08:27 Temperature 98.0 F 98.1 F Pulse Rate 60 60 57 Respiratory Rate 17 17 Blood Pressure 135/58 L 135/58 L 140/62 H Pulse Oximetry 96 96 08/11/21 08:29 Temperature Pulse Rate 57 Respiratory Rate Blood Pressure 140/62 H Pulse Oximetry Body Mass Index 29.8 Labs Results: 07/30/21 14:37 07/30/21 14:37 Labs: Laboratory Results - last 48 hr 08/09/21 22:49 Troponin I High Sens 5.5 Medications Medications Current Medications Acetaminophen (Acetaminophen 325 Mg Tablet) 650 mg PO Q6H PRN PRN Reason: Headache/Pain Mild Scale (1-3) Acetaminophen/Butalbital/Caffeine (Butalb/Acetamin/Caff 50/325/40 Tablet) 1 tab PO Q4H PRN PRN Reason: Headache Al Hydroxide/Mg Hydroxide (Magnesium Hydrox/Alum Hydrox 30 Ml Oral.Susp) 30 ml PO Q6H PRN PRN Reason: Heartburn/Nausea Amlodipine Besylate (Amlodipine Besylate 5 Mg Tablet) 5 mg PO BEDTIME DENIS; Protocol Last Admin: 08/10/21 20:18 Dose: 5 mg Documented by: Aspirin (Aspirin Enteric Coated 81 Mg Tablet.) 81 mg PO DAILY [facility] Last Admin: 08/11/21 08:31 Dose: 81 mg Documented by: Atorvastatin Calcium (Atorvastatin Calcium 10 Mg Tablet) 10 mg PO BEDTIME DENIS Last Admin: 08/10/21 20:19 Dose: 10 mg Documented by: Divalproex Sodium (Divalproex Sodium 250 Mg Tablet.) 250 mg PO BID [facility] Last Admin: 08/11/21 08:30 Dose: 250 mg Documented by: Donepezil HCl (Donepezil Hcl 10 Mg Tablet) 10 mg PO BEDTIME [facility] Last Admin: 08/10/21 20:18 Dose: 10 mg Documented by: Hydroxyzine HCl (Hydroxyzine Hcl 25 Mg Tablet) 25 mg PO BEDTIME PRN PRN Reason: Anxiety Levothyroxine Sodium (Levothyroxine Sodium 112 Mcg Tablet) 112 mcg PO DAILY@0630 [facility] Last Admin: 08/11/21 05:30 Dose: 112 mcg Documented by: Losartan Potassium (Losartan Potassium 50 Mg Tablet) 100 mg PO DAILY [facility]; Protocol Last Admin: 08/11/21 08:29 Dose: 100 mg Documented by: Magnesium Hydroxide (Milk Of Magnesia 30 Ml Oral.Susp) 30 ml PO DAILY PRN PRN Reason: Constipation Melatonin (Melatonin 3 Mg Tablet) 18 mg PO BEDTIME [facility] Last Admin: 08/10/21 20:18 Dose: 18 mg Documented by: Memantine (Memantine Hcl 10 Mg Tablet) 10 mg PO BID [facility] Last Admin: 08/11/21 08:30 Dose: 10 mg Documented by: Metoprolol Tartrate (Metoprolol Tartrate 100 Mg Tablet) 100 mg PO BID [facility]; Protocol Last Admin: 08/11/21 08:29 Dose: 100 mg Documented by: Multivitamins/Vitamin C (Multivitamin Tablet) 1 tab PO DAILY [facility] Last Admin: 08/11/21 08:31 Dose: 1 tab Documented by: Omeprazole (Omeprazole 20 Mg Capsule.) 20 mg PO BID@0630,1630 [facility] Last Admin: 08/11/21 05:30 Dose: 20 mg Documented by: Pharmacy Consult (Consult Rx Perform Med Rec) 1 each MISCELLANE ONCE PRN PRN Reason: Consult order Pharmacy Consult (Consult Rx Perform Med Rec) 1 each MISCELLANE ONCE PRN PRN Reason: Consult order Quetiapine Fumarate (Quetiapine Fumarate 25 Mg Tablet) 25 mg PO DAILY [facility] Last Admin: 08/11/21 08:29 Dose: 25 mg Documented by: Quetiapine Fumarate (Quetiapine Fumarate 100 Mg Tablet) 100 mg PO BEDTIME [facility] Last Admin: 08/10/21 20:18 Dose: 100 mg Documented by: Ropinirole HCl (Ropinirole Hcl 1 Mg Tablet) 1.5 mg PO BEDTIME [facility] Last Admin: 08/10/21 20:16 Dose: 1.5 mg Documented by: Sertraline HCl (Sertraline Hcl 50 Mg Tablet) 50 mg PO BEDTIME [facility] Last Admin: 08/10/21 20:18 Dose: 50 mg Documented by: Vitamin D (Cholecalciferol (Vitamin D3) 25 Mcg Tablet) 25 mcg PO DAILY [facility] Last Admin: 08/11/21 08:29 Dose: 25 mcg Documented by: Allergies Allergies Allergy/AdvReac Type Severity Reaction Status Date / Time Penicillins [PENICILLINS] Allergy Intermediate Headache Verified 08/03/21 20:30 penicillin V Allergy Unknown swelling Verified 10/20/18 00:00 procaine [From NOVOCAIN] Allergy Unknown Headache Verified 08/03/21 20:30 Assessment & Plan Assessment & Plan (1) Mood disorder: Status: Acute Code(s): F39 - Unspecified mood [affective] disorder (2) Dementia: Status: Acute Code(s): F03.90 - Unspecified dementia without behavioral disturbance Assessment and Plan: Elderly female with a long history of dementia and psychotic symptoms, admitted for exacerbation of irritability and psychosis. Plan 1. Continue same medications. 2. Gather collateral information. 3. We will consider increase Seroquel if we see agitation in the next days. 4. We will reassess discharge planning according to the results of occupational therapy. 5. Possible discharge tomorrow I spent minutes with the patient and/or on the patient floor today, greater than?50% of which was spent counseling/coordinating care. Reason for contiued inpatient stay Substantial Risk for: inability to function, rapid decompensation and med/psych decompensation
[2021-08-11] MEDS: rOPINIRole HCL 1 MG TABLET 1.5 MG PO (21:38)
[2021-08-11] MEDS: Melatonin 3 MG TABLET 18 MG PO (21:39)
[2021-08-11 21:40] VITALS: BP 126/62; PULSE 65; RESP 16; TEMP 36.4; O2SAT 95
[2021-08-11] MEDS: Atorvastatin Calcium 10 MG TABLET PO (21:40)
[2021-08-11] MEDS: Sertraline HCL 50 MG TABLET PO (21:40)
[2021-08-11] MEDS: QUEtiapine Fumarate 100 MG TABLET PO (21:41)
[2021-08-11] MEDS: Donepezil HCl 10 MG TABLET PO (21:41)
[2021-08-11 21:42] VITALS: BP 126/62; PULSE 65
[2021-08-11 21:43] VITALS: BP 126/62; PULSE 65
[2021-08-11] MEDS: amLODIPine Besylate 5 MG TABLET PO (21:43)
[2021-08-12] MEDS: Levothyroxine Sodium 112 MCG TABLET PO (05:50)
[2021-08-12] MEDS: Omeprazole 20 MG CAPSULE.DR PO (05:50)
[2021-08-12] MEDS: Metoprolol Tartrate 100 MG TABLET PO (10:09)
[2021-08-12] MEDS: Cholecalciferol (Vitamin D3) 25 MCG TABLET PO (10:09)
[2021-08-12] MEDS: Memantine HCl 10 MG TABLET PO (10:09)
[2021-08-12] MEDS: Losartan Potassium 50 MG TABLET 100 MG PO (10:09)
[2021-08-12] MEDS: Multivitamin TABLET 1 TAB PO (10:09)
[2021-08-12] MEDS: Aspirin Enteric Coated 81 MG TABLET.DR PO (10:10)
[2021-08-12] MEDS: Divalproex Sodium 250 MG TABLET.DR PO (10:10)
[2021-08-12] MEDS: QUEtiapine Fumarate 25 MG TABLET PO (10:10)
--- NOTE | 2021-08-12 10:43 | P.DS_ITS ---
DS: Providers Provider Date of Service: 08/12/21 Date of admission: 07/31/21 15:49 Date of discharge: 08/12/21 Primary care physician: Sanchez Whalen MD Attending physician on discharge: Javy Marvin DS: Diagnosis Discharge Diagnosis (1) Mood disorder: Status: Acute (2) Dementia: Status: Acute DS: Medications Discharge Medications Home Medications: Home Medications Medication Instructions Recorded Confirmed amlodipine 5 mg tablet 5 mg PO BEDTIME 09/25/20 07/30/21 aspirin 81 mg tablet 81 mg PO DAILY 09/25/20 07/30/21 [id number]-[id number] 1 tab PO Q4H PRN 09/25/20 07/30/21 50 mg-325 mg-40 mg tablet cholecalciferol (vitamin D3) 25 25 mcg PO DAILY 09/25/20 07/30/21 mcg (1,000 unit) tablet (Vitamin D3) divalproex 250 mg tablet,delayed 250 mg PO BID 09/25/20 07/30/21 release donepezil 10 mg tablet 10 mg PO BEDTIME 09/25/20 07/30/21 ginkgo biloba 120 mg tablet 120 mg PO BID 09/25/20 07/30/21 glucosamine-chondroitin 500 mg-400 1 cap PO DAILY 09/25/20 07/30/21 mg capsule levothyroxine 112 mcg tablet 112 mcg PO DAILY@0630 09/25/20 07/30/21 losartan 100 mg tablet 100 mg PO DAILY 09/25/20 07/30/21 melatonin 10 mg tablet 20 mg PO BEDTIME 09/25/20 07/30/21 memantine 10 mg tablet 10 mg PO BID 09/25/20 07/30/21 multivitamin 1 tab PO DAILY 09/25/20 07/30/21 omeprazole 20 mg capsule,delayed 20 mg PO BID@0630,1630 09/25/20 07/30/21 release quetiapine 100 mg tablet 100 mg PO BEDTIME 09/25/20 07/30/21 quetiapine 25 mg tablet 25 mg PO DAILY 09/25/20 07/30/21 ropinirole 0.5 mg tablet 1.5 mg PO BEDTIME 09/25/20 07/30/21 sertraline 50 mg tablet 50 mg PO BEDTIME 12/22/20 10/26/21 simvastatin 20 mg tablet 20 mg PO BEDTIME 09/25/20 07/30/21 Previous Rx's Medication Instructions Recorded metoprolol tartrate 100 mg tablet 100 mg PO BID #30 tab 09/26/20 Mental Status Exam Mental Status Exam Patient Appearance: Well Grooomed Patient Orientation: Person, Place, Time and Situation Level of Consciousness: Awake Patient Behavior: Appropriate and Cooperative Mood Description: Calm Affect Description: Constricted Patient Cognition Impaired: Yes Ability to Follow Directions: Good Speech Pattern: Clear Hallucinations: None Delusions: Not Present Thought Process: Intact Thought Content: positive for Circumstantial Depressive Symptoms: Increased Anxiety Judgement: Fair Data Data Completed and Pending Completed studies during hospitalization [Text1]: 08/09/21 22:49 Troponin I High Sens 5.5 DS: Summary Hospital Course Hospital Course: The patient was initially admitted for exacerbation of psychotic symptoms and disorganized behavior. Please see HPI from the admission note for more details. She was initially worked out and we rule out UTI and other infectious diseases. We continue with her regular Seroquel at the same dose and we so that the patient started sleeping much better and she was more organized. It was unclear if she was fully compliant at home since the patient has a cognitive impairment and most likely she was missing several doses of Seroquel. The psych social worker gathered collateral information and there was a reported that she was unable to take care of herself or her at home in a safe manner. During the inpatient admission, the patient was mostly in her room, minimally interacting with peers or staff but eventually she was able to participate in groups and other therapeutic activities in the facility. Since there were no safety concerns discharge planning was discussed. But we arrange ancillary services such as VNA, case aide in an or others to avoid a new episode of psychosis. Time spent discussing smoking cessation with patient: 3 to 10 minutes Status at Discharge Cognitive/behavioral status at discharge: At baseline Functional status at discharge: independent ambulation Overall status at discharge: patient is back to baseline Time Spent with Patient Time attestation: Total time spent providing and/or coordinating discharge services: Time spent: Less than 30 minutes Discharge Plan Discharge Patient Disposition: Home, Self-Care Discharge Diagnosis: Mood disorder Referrals: Nelson Lake APRN [Other] - 08/21/21 2:15 pm (Appointment for psychiatry will be telehealth for 08/21/21 at 2:15PM) [facility] [Other] - 12/02/21 12:30 pm (Referral for [facility] home care has been placed. Intake appointment is scheduled for 09/05/21 at 12:30PM) Brandon [facility]OTHERSA [Other] - 08/13/21 (VNA services to start 08/13/21 for medication teaching/management, OT and social work. ) Sanchez Whalen MD [Primary Care Provider] - 1 Week Discharge Medications: New aspirin 81 mg Tablet,Delayed Release (Dr/Ec) 81 mg PO DAILY 30 Days Qty: 30 RF: 0 Continued multivitamin Tablet 1 tab PO DAILY RF: 0 mqcvurhctr-nfclbgpmmyuno-grok 50-325-40 mg Tablet 1 tab PO Q4H PRN (Reason: Headache) RF: 0 aspirin 81 mg Tablet 81 mg PO DAILY RF: 0 glucosamine-chondroitin 500-400 mg Capsule 1 cap PO DAILY RF: 0 ginkgo biloba 120 mg Tablet 120 mg PO BID RF: 0 cholecalciferol (vitamin D3) [Vitamin D3] 25 mcg (1,000 unit) Tablet 25 mcg PO DAILY RF: 0 quetiapine 25 mg Tablet 25 mg PO DAILY 30 Days Qty: 30 RF: 0 divalproex 250 mg Tablet,Delayed Release (Dr/Ec) 250 mg PO BID 30 Days Qty: 60 RF: 0 metoprolol tartrate 100 mg tablet 100 mg PO BID 30 Days Qty: 60 RF: 0 donepezil 10 mg Tablet 10 mg PO BEDTIME 30 Days Qty: 30 RF: 0 amlodipine 5 mg Tablet 5 mg PO BEDTIME 30 Days Qty: 30 RF: 0 quetiapine 100 mg Tablet 100 mg PO BEDTIME 30 Days Qty: 30 RF: 0 simvastatin 20 mg Tablet 20 mg PO BEDTIME 30 Days Qty: 30 RF: 0 ropinirole 0.5 mg Tablet 1.5 mg PO BEDTIME 30 Days Qty: 90 RF: 0 omeprazole 20 mg Capsule,Delayed Release(Dr/Ec) 20 mg PO BID@0630,1630 30 Days Qty: 60 RF: 0 losartan 100 mg Tablet 100 mg PO DAILY 30 Days Qty: 30 RF: 0 sertraline 50 mg Tablet 50 mg PO BEDTIME 30 Days Qty: 30 RF: 0 levothyroxine 112 mcg Tablet 112 mcg PO DAILY@0630 30 Days Qty: 30 RF: 0 memantine 10 mg Tablet 10 mg PO BID 30 Days Qty: 60 RF: 0 melatonin 10 mg Tablet 20 mg PO BEDTIME Qty: 60 RF: 0 Discharge Orders: Discharge Order (Routine); Ordered 08/12/21 Ordered By: Javy Marvin Diet: advance to usual diet Activity on Discharge: As tolerated Stand Alone Forms: Patient Portal Discharge page Care Plan Goals: Care plan goals achieved in the admission Health Concerns: Continue psychiatric treatment as an outpatient at [facility] Plan of Treatment: Continue medication management at [facility] Assessment: The patient is an elderly female with a long history of dementia and mood symptoms readmitted for exacerbation of psychosis and mood lability in the context of noncompliance. She went back to baseline as soon as she was more stable. Ancillary services were arranged. Esteban were no safety concerns the patient is safe to go back home
== END 2021-08-12 11:29 | disposition home or self-care (01) | DRG 885 ==
LOC: HO.ED 07-31 13:00 → HO.PGERI 07-31 16:11
PROVIDERS: Physician Assistant; Registered Nurse; Admitting Provider Psychiatry & Neurology Psychiatry; Emergency Provider Emergency Medicine Emergency Medical Services; PCP Internal Medicine Endocrinology, Diabetes & Metabolism; Visit Provider Psychiatry & Neurology Psychiatry
DX: F39 Unspecified mood [affective] disorder (principal); F03.91 Unspecified dementia, unspecified severity, with behavioral disturbance; K21.9 Gastro-esophageal reflux disease without esophagitis; E03.9 Hypothyroidism, unspecified; K59.00 Constipation, unspecified; G25.81 Restless legs syndrome; Z20.822 Contact with and (suspected) exposure to COVID-19; Z23 Encounter for immunization; Z88.0 Allergy status to penicillin; Z91.83 Wandering in diseases classified elsewhere; Z79.82 Long term (current) use of aspirin; Z79.899 Other long term (current) drug therapy
CPT/HCPCS: 36415; 80053; 80164; 80307; 81003; 82077; 84439; 84443; 84484; 85025; 87635; 90686; 93005; 99285

== ENCOUNTER 2022-05-30 19:08 | Emergency (ER) | payer MEDICARE, OTHER, SELFPAY ==
--- NOTE | ~2022-05-30 | XR_ITS ---
EXAMINATION: XR CHEST CLINICAL INFORMATION: Covid positive COMPARISON: Chest x-ray 09/25/2020 TECHNIQUE: Frontal view of the chest was obtained. FINDINGS: Mild patchy bibasilar opacities left greater than right. Indistinct costophrenic sulci suggesting small pleural effusions. No pneumothorax. Normal cardiomediastinal silhouette. No evidence of pulmonary edema. No acute osseous injury. XR/XR chest 1V IMPRESSION: 1. Patchy bibasilar airspace opacities which may represent atelectasis, aspiration, or possibly pneumonia. 2. Suspected small bilateral pleural effusions.
--- NOTE | ~2022-05-30 | CT_ITS ---
EXAMINATION: CT HEAD WITHOUT CONTRAST CLINICAL INFORMATION: Fall. Altered mental status. COMPARISON: Head CT dated 09/25/2020. TECHNIQUE: Contiguous axial imaging was performed from the skullbase to vertex without intravenous administration of contrast. This CT examination was performed using dose optimization techniques as appropriate, variously including the following: *Automated exposure control *Adjustment of mA and/or kV according to patient size (this includes techniques or standardized protocols for targeted exams where dose is matched to indication/reason for exam; i.e. extremities or head) *Use of iterative reconstruction technique DLP: 576 mGy-cm. FINDINGS: There is no evidence of acute intracranial hemorrhage or territorial infarction. No abnormal mass effect or midline shift is seen. Ayala to white matter differentiation is well preserved. No extra-axial fluid collections are identified. Moderate diffuse parenchymal volume loss noted with moderate chronic white matter microangiopathy and ex vacuo dilatation of the ventricles. The osseous structures and soft tissues are normal. The mastoid air cells and visualized portions of the paranasal sinuses are well aerated. CT/CT head/brain wo con IMPRESSION: No acute intracranial hemorrhage or territorial infarction. Moderate chronic white matter microangiopathy and diffuse parenchymal volume loss.
[2022-05-30 19:45] VITALS: BP 110/70; BP 152/50; PULSE 54; RESP 23; TEMP 36.9; O2SAT 100; O2SAT 97; BMI 34.9
[2022-05-30 19:57] VITALS: BP 152/50; PULSE 53; RESP 19; TEMP 36.9; O2SAT 99
--- NOTE | 2022-05-30 20:03 | ECG_ITS ---
Test Reason : ALTERED MENTAL Blood Pressure : / mmHG Vent. Rate : 058 BPM Atrial Rate : 058 BPM P-R Int : 142 ms QRS Dur : 110 ms QT Int : 420 ms P-R-T Axes : 081 -37 042 degrees QTc Int : 412 ms Sinus bradycardia Left axis deviation Minimal voltage criteria for LVH, may be normal variant ( Yoni product ) Nonspecific T wave abnormality Intra-ventricular conduction delay Abnormal ECG When compared with ECG of 10-AUG-2021 03:35, No significant change was found Referred By: Francisca De La Rosa Electronically Signed By:LETICIA GOODSON
--- NOTE | 2022-05-30 20:03 | ED_ITS ---
HPI - Altered Mental Status General Chief Complaint: Altered Mental Status Stated Complaint: +COVID/WEAKNESS Time Seen by Provider: 05/30/22 19:40 Source: EMS Mode of arrival: EMS Limitations: altered mental status History of Present Illness HPI narrative: Patient comes to the emergency room via EMS. Patient has history of dementia and is unable to give any significant history. Patient states that she feels weak. I spoke to the patient's daughter over the phone. Four days ago, patient tested positive for COVID-19, since then, her dementia has been getting worse. Today, this evening, when the patient's daughter went to provide food and medications to her parents, she found that the patient was face down in the carpet, very confused. Patient denies any pain anywhere. Related Data Home Medications Medication Instructions Recorded Confirmed cholecalciferol (vitamin D3) 25 25 mcg PO DAILY 09/25/20 05/30/22 mcg (1,000 unit) tablet (Vitamin D3) multivitamin 1 tab PO DAILY 09/25/20 05/30/22 nirmatrelvir 300 mg (150 mg 3 tab PO BID 05/30/22 05/30/22 x2)-ritonavir 100 mg tablet,dose pack(EUA) (Paxlovid) quetiapine 25 mg tablet 50 mg PO BID 05/30/22 05/30/22 Previous Rx's Medication Instructions Recorded amlodipine 5 mg tablet 5 mg PO BEDTIME 30 days #30 tabs 08/12/21 divalproex 250 mg tablet,delayed 250 mg PO BID 30 days #60 tabs 08/12/21 release donepezil 10 mg tablet 10 mg PO BEDTIME 30 days #30 tabs 08/12/21 levothyroxine 112 mcg tablet 112 mcg PO DAILY@0630 30 days #30 08/12/21 tabs losartan 100 mg tablet 100 mg PO DAILY 30 days #30 tabs 08/12/21 memantine 10 mg tablet 10 mg PO BID 30 days #60 tabs 08/12/21 metoprolol tartrate 100 mg tablet 100 mg PO BID 30 days #60 tabs 08/12/21 omeprazole 20 mg capsule,delayed 20 mg PO BID@0630,1630 30 days #60 08/12/21 release caps quetiapine 100 mg tablet 100 mg PO BEDTIME 30 days #30 tabs 08/12/21 ropinirole 0.5 mg tablet 1.5 mg PO BEDTIME 30 days #90 tabs 08/12/21 sertraline 50 mg tablet 50 mg PO BEDTIME 30 days #30 tabs 08/12/21 simvastatin 20 mg tablet 20 mg PO BEDTIME 30 days #30 tabs 08/12/21 Allergies Allergy/AdvReac Type Severity Reaction Status Date / Time Penicillins [PENICILLINS] Allergy Intermediate Headache Verified 08/03/21 20:30 penicillin V Allergy Unknown swelling Verified 10/20/18 00:00 procaine [From NOVOCAIN] Allergy Unknown Headache Verified 08/03/21 20:30 [facility] Past Medical History Medical History Anxiety Dementia GERD (gastroesophageal reflux disease) High cholesterol Hypertension Hypothyroidism Mood disorder RLS (restless legs syndrome) Social History Social History Household Members: Spouse Housing: House Do you presently have visiting nurse or other home services: No Alcohol intake: unknown Patient Tobacco Use Status: Never used Tobacco Advance Directives: Yes Advance Directives on File: Yes Advance Directives Date on File: 08/15/21 service: No Current occupational status: retired Sexual orientation: Straight/Heterosexual Physical Exam ED Vital Signs: Vital Signs - 24 hr 05/30/22 19:45 05/30/22 19:57 05/30/22 21:51 Temperature 98.4 F 98.5 F 98.4 F Pulse Rate 54 53 54 Respiratory Rate 23 H 19 16 Blood Pressure 152/50 H 152/50 H 104/45 L Pulse Oximetry 100 99 94 Oxygen Delivery Method Nasal Cannula Room Air Room Air 05/31/22 00:02 Temperature Pulse Rate 55 Respiratory Rate 12 Blood Pressure 148/47 H Pulse Oximetry 96 Oxygen Delivery Method Room Air BMI result Body Mass Index 34.9 Course Course Course Narrative: Patient tested positive for 19. So far, patient is on her 2nd dose of PAxlovid. Patient's x-ray shows possible pneumonia. Blood pressure is stable, oxygen saturation 94% on room air. No respiratory distress. Patient was given p.o. Levaquin. Sepsis is not suspected. Urinalysis is negative. Case management and physical therapy pending for tomorrow. Note, patient's is also here for case management. Physician of brenda fernandez started at 00:15 Patient's urinalysis is likely positive secondary to psychiatric medications rather than an actual positive sentinel positive test MDM - Altered Mental Status Lab Data Result diagrams: 05/30/22 21:37 05/30/22 21:37 Labs: Lab Results 05/30/22 05/30/22 05/30/22 Range/Units 21:18 21:37 21:37 WBC 4.2 L (4.8-10.8) X10*3/uL RBC 3.91 L (4.20-5.50) X10*6/uL Hgb 12.1 (12.0-16.0) g/dl Hct 35.2 L (37.0-47.0) % MCV 90.0 (80.0-98.0) fL MCH 30.9 (27.0-33.0) pg MCHC 34.4 (31.0-35.0) g/dl RDW 13.5 (11.0-16.0) % Plt Count 116 L (160-400) X10*3/uL MPV 9.9 (9.4-12.3) fL Immature Gran % (Auto) 0.2 (0.0-0.4) % Neut % (Auto) 55.0 (45-73) % Lymph % (Auto) 27.5 (20-40) % [place] % (Auto) 16.8 H (2-11) % Eos % (Auto) 0.0 (0-4) % Baso % (Auto) 0.5 (0-2) % Lymph # (Auto) 1.2 (1.2-4.9) X10*3/uL [place] # (Auto) 0.7 (0.1-1.2) X10*3/uL Eos # (Auto) 0.0 (0.0-0.4) X10*3/uL Baso # (Auto) 0.0 (0.0-0.2) X10*3/uL Abs Immat Gran (auto) 0.01 (0.00-0.03) X10*3/uL Absolute Neuts (auto) 2.3 (2.0-8.3) x10*3/uL Absolute Nucleated RBC 0.000 (0.0-0.012) X10*3/uL Nucleated RBC % (auto) 0.0 (0.0-0.2) /100WBC Smear Tech's Comments VERIFIED PT (10.0-13.1) SEC INR (0.9-1.1) Sodium 139 (135-145) mmol/L Potassium 4.0 (3.3-5.1) mmol/L Chloride 105 (96-108) mmol/L Carbon Dioxide 24 (22-29) mmol/L Anion Gap 14 (12-20) BUN 18 H (9-16) mg/dL Creatinine 0.79 (0.5-1.4) mg/dL Estim Creat Clear Calc 62.4 Estimated GFR > 60 Random Glucose 93 (60-115) mg/dL Calcium 8.0 L D (8.4-10.2) mg/dL Magnesium 1.8 (1.6-2.6) mg/dL Total Bilirubin 0.6 (0.0-1.0) mg/dL Direct Bilirubin 0.3 (0.0-0.5) mg/dL AST 43 H D (5-31) U/L ALT 15 (0-31) U/L Alkaline Phosphatase 47 (39-117) U/L Troponin I High Sens (<3.5-17.0) ng/L B-Natriuretic Peptide (<100) pg/mL Total Protein 5.9 L (6.5-8.0) g/dL Albumin 3.3 L (3.5-5.0) g/dL TSH 0.98 (0.32-4.0) uIU/mL Urine Color Urine Appearance Urine pH (5.0-8.0) Ur Specific [place] (1.005-1.025) Urine Protein (Neg-Trace) mg/dL Urine Glucose (UA) (Negative) mg/dL Urine Ketones (Negative) mg/dL Urine Blood (Negative) Urine Nitrite (Negative) Ur Leukocyte Esterase (Negative) Urine RBC (0-2) /HPF Urine WBC (0-5) /HPF Ur Squamous Epith Cells (0-2) /HPF Urine Bacteria (None Seen) Hyaline Casts (0-2) /LPF Urine Opiates Screen (Not Detect) Urine Fentanyl Screen (Not Detect) Ur Barbiturates Screen (Not Detect) Ur Phencyclidine Scrn (Not Detect) Ur Amphetamines Screen (Not Detect) U Benzodiazepines Scrn (Not Detect) Urine Cocaine Screen (Not Detect) U Marijuana (THC) Screen (Not Detect) Ethyl Alcohol < 10 mg/dL COVID-19 (EDU) Positive A (Negative) COVID-19 Clin Com See Note 05/30/22 05/30/22 05/30/22 Range/Units 21:37 21:37 23:06 WBC (4.8-10.8) X10*3/uL RBC (4.20-5.50) X10*6/uL Hgb (12.0-16.0) g/dl Hct (37.0-47.0) % MCV (80.0-98.0) fL MCH (27.0-33.0) pg MCHC (31.0-35.0) g/dl RDW (11.0-16.0) % Plt Count (160-400) X10*3/uL MPV (9.4-12.3) fL Immature Gran % (Auto) (0.0-0.4) % Neut % (Auto) (45-73) % Lymph % (Auto) (20-40) % [place] % (Auto) (2-11) % Eos % (Auto) (0-4) % Baso % (Auto) (0-2) % Lymph # (Auto) (1.2-4.9) X10*3/uL [place] # (Auto) (0.1-1.2) X10*3/uL Eos # (Auto) (0.0-0.4) X10*3/uL Baso # (Auto) (0.0-0.2) X10*3/uL Abs Immat Gran (auto) (0.00-0.03) X10*3/uL Absolute Neuts (auto) (2.0-8.3) x10*3/uL Absolute Nucleated RBC (0.0-0.012) X10*3/uL Nucleated RBC % (auto) (0.0-0.2) /100WBC Smear Tech's Comments PT 11.9 (10.0-13.1) SEC INR 1.0 (0.9-1.1) Sodium (135-145) mmol/L Potassium (3.3-5.1) mmol/L Chloride (96-108) mmol/L Carbon Dioxide (22-29) mmol/L Anion Gap (12-20) BUN (9-16) mg/dL Creatinine (0.5-1.4) mg/dL Estim Creat Clear Calc Estimated GFR Random Glucose (60-115) mg/dL Calcium (8.4-10.2) mg/dL Magnesium (1.6-2.6) mg/dL Total Bilirubin (0.0-1.0) mg/dL Direct Bilirubin (0.0-0.5) mg/dL AST (5-31) U/L ALT (0-31) U/L Alkaline Phosphatase (39-117) U/L Troponin I High Sens 16.7 (<3.5-17.0) ng/L B-Natriuretic Peptide 158 H (<100) pg/mL Total Protein (6.5-8.0) g/dL Albumin (3.5-5.0) g/dL TSH (0.32-4.0) uIU/mL Urine Color Yellow Urine Appearance Clear Urine pH 6.0 (5.0-8.0) Ur Specific [place] 1.020 (1.005-1.025) Urine Protein Trace (Neg-Trace) mg/dL Urine Glucose (UA) Negative (Negative) mg/dL Urine Ketones 15 (Negative) mg/dL Urine Blood Small (1+) H (Negative) Urine Nitrite Negative (Negative) Ur Leukocyte Esterase Negative (Negative) Urine RBC 11-20 H (0-2) /HPF Urine WBC 0-5 (0-5) /HPF Ur Squamous Epith Cells 0-2 (0-2) /HPF Urine Bacteria None Seen (None Seen) Hyaline Casts 0-2 (0-2) /LPF Urine Opiates Screen (Not Detect) Urine Fentanyl Screen (Not Detect) Ur Barbiturates Screen (Not Detect) Ur Phencyclidine Scrn (Not Detect) Ur Amphetamines Screen (Not Detect) U Benzodiazepines Scrn (Not Detect) Urine Cocaine Screen (Not Detect) U Marijuana (THC) Screen (Not Detect) Ethyl Alcohol mg/dL COVID-19 (EDU) (Negative) COVID-19 Clin Com 05/30/22 Range/Units 23:06 WBC (4.8-10.8) X10*3/uL RBC (4.20-5.50) X10*6/uL Hgb (12.0-16.0) g/dl Hct (37.0-47.0) % MCV (80.0-98.0) fL MCH (27.0-33.0) pg MCHC (31.0-35.0) g/dl RDW (11.0-16.0) % Plt Count (160-400) X10*3/uL MPV (9.4-12.3) fL Immature Gran % (Auto) (0.0-0.4) % Neut % (Auto) (45-73) % Lymph % (Auto) (20-40) % [place] % (Auto) (2-11) % Eos % (Auto) (0-4) % Baso % (Auto) (0-2) % Lymph # (Auto) (1.2-4.9) X10*3/uL [place] # (Auto) (0.1-1.2) X10*3/uL Eos # (Auto) (0.0-0.4) X10*3/uL Baso # (Auto) (0.0-0.2) X10*3/uL Abs Immat Gran (auto) (0.00-0.03) X10*3/uL Absolute Neuts (auto) (2.0-8.3) x10*3/uL Absolute Nucleated RBC (0.0-0.012) X10*3/uL Nucleated RBC % (auto) (0.0-0.2) /100WBC Smear Tech's Comments PT (10.0-13.1) SEC INR (0.9-1.1) Sodium (135-145) mmol/L Potassium (3.3-5.1) mmol/L Chloride (96-108) mmol/L Carbon Dioxide (22-29) mmol/L Anion Gap (12-20) BUN (9-16) mg/dL Creatinine (0.5-1.4) mg/dL Estim Creat Clear Calc Estimated GFR Random Glucose (60-115) mg/dL Calcium (8.4-10.2) mg/dL Magnesium (1.6-2.6) mg/dL Total Bilirubin (0.0-1.0) mg/dL Direct Bilirubin (0.0-0.5) mg/dL AST (5-31) U/L ALT (0-31) U/L Alkaline Phosphatase (39-117) U/L Troponin I High Sens (<3.5-17.0) ng/L B-Natriuretic Peptide (<100) pg/mL Total Protein (6.5-8.0) g/dL Albumin (3.5-5.0) g/dL TSH (0.32-4.0) uIU/mL Urine Color Urine Appearance Urine pH (5.0-8.0) Ur Specific [place] (1.005-1.025) Urine Protein (Neg-Trace) mg/dL Urine Glucose (UA) (Negative) mg/dL Urine Ketones (Negative) mg/dL Urine Blood (Negative) Urine Nitrite (Negative) Ur Leukocyte Esterase (Negative) Urine RBC (0-2) /HPF Urine WBC (0-5) /HPF Ur Squamous Epith Cells (0-2) /HPF Urine Bacteria (None Seen) Hyaline Casts (0-2) /LPF Urine Opiates Screen Not Detected (Not Detect) Urine Fentanyl Screen POSITIVE H (Not Detect) Ur Barbiturates Screen Not Detected (Not Detect) Ur Phencyclidine Scrn Not Detected (Not Detect) Ur Amphetamines Screen Not Detected (Not Detect) U Benzodiazepines Scrn Not Detected (Not Detect) Urine Cocaine Screen Not Detected (Not Detect) U Marijuana (THC) Screen Not Detected (Not Detect) Ethyl Alcohol mg/dL COVID-19 (EDU) (Negative) COVID-19 Clin Com Discharge Plan Discharge Clinical Impression: Dementia, COVID-19 Patient Disposition: Still a Patient Prescriptions: No Action multivitamin Tablet 1 tab PO DAILY cholecalciferol (vitamin D3) [Vitamin D3] 25 mcg (1,000 unit) Tablet 25 mcg PO DAILY quetiapine 25 mg tablet 50 mg PO BID Paxlovid (EUA) 300 mg (150 mg x 2)-100 mg tablets,dose pack 3 tab PO BID divalproex 250 mg Tablet,Delayed Release (Dr/Ec) 250 mg PO BID 30 Days Qty: 60 0RF metoprolol tartrate 100 mg tablet 100 mg PO BID 30 Days Qty: 60 0RF donepezil 10 mg Tablet 10 mg PO BEDTIME 30 Days Qty: 30 0RF amlodipine 5 mg Tablet 5 mg PO BEDTIME 30 Days Qty: 30 0RF quetiapine 100 mg Tablet 100 mg PO BEDTIME 30 Days Qty: 30 0RF simvastatin 20 mg Tablet 20 mg PO BEDTIME 30 Days Qty: 30 0RF ropinirole 0.5 mg Tablet 1.5 mg PO BEDTIME 30 Days Qty: 90 0RF omeprazole 20 mg Capsule,Delayed Release(Dr/Ec) 20 mg PO BID@0630,1630 30 Days Qty: 60 0RF losartan 100 mg Tablet 100 mg PO DAILY 30 Days Qty: 30 0RF sertraline 50 mg Tablet 50 mg PO BEDTIME 30 Days Qty: 30 0RF levothyroxine 112 mcg Tablet 112 mcg PO DAILY@0630 30 Days Qty: 30 0RF memantine 10 mg Tablet 10 mg PO BID 30 Days Qty: 60 0RF
--- NOTE | 2022-05-30 20:04 | PC.NURSE ---
Pt is oriented X 2. Able to follow commands, Supplementary O2 taken off per provider's order. Stat at 97 on room air.
--- NOTE | 2022-05-30 20:37 | PHA.MEDREC ---
Pharmacy Consult ? Medication Reconciliation Pharmacy has completed the medication reconciliation. Patient is very confused, pt has been admitted at the same time as who is also confused. Patient uses [facility], at this time they are closed. Med rec based on CLAIM HISTORY.
--- NOTE | 2022-05-30 21:14 | PC.NURSE ---
Pt is hard stick, phlebotomy called.
--- NOTE | 2022-05-30 21:29 | MHC.CM.ED ---
Dr De La Rosa reviewed this patients history with CM. Work-up is still pending. Pt , Tony Rizzo, is also a patient in the ED. Pt tested positive for Covid on 05/26. Pt has hx of AMD, Mood disorder and dementia. Pt has been hospitalized at [facility] for inpatient psych, most recently as 08/01/22. Pt lives with . Uses no DME. Son-in-law, Thad Gabriel cares for both patient and her during the day and family private pays for [employer] evenings and weekends. Pt needs help with all ADL's and showering. Pt had increased confusion at home and was found lying face down on carpet. HCP/POA/daughter Lexy Rizzo ([phone]). HCP#2 Thad Gabriel ([phone]). CM spoke with daughter, Lexy. Lexy aware that medical work up is pending, but that her mother will either be admitted or will stay as CM hold. Pt cannot go home, as there is no one to care for her. Both Thad and her grandson are now Covid positive. Lexy aware that many facilities do not accept Covid postive patients for STR. Lexy is not interested in LTC for either parent. CM will follow for discharge planning.
--- NOTE | 2022-05-30 21:29 | PC.NURSE ---
PHLEBOTOMY AT BEDSIDE
[2022-05-30 21:31] LABS: COVID-19 Test Positive (Negative); IDNOW Serial# 16C4AD1C
[2022-05-30 21:45] LABS: Basophils Percent Auto 0.5 % (0-2); Hematocrit 35.2 % (37.0-47.0); Hemoglobin 12.1 g/dl (12.0-16.0); Imm Gran Abs Auto 0.01 X10*3/uL (0.00-0.03); Imm Gran Pct Auto 0.2 % (0.0-0.4); Lymphocytes Absolute Auto 1.2 X10*3/uL (1.2-4.9); Lymphocytes Percent Auto 27.5 % (20-40); MANUAL DIFF FLAG SCAN; Mean Corpuscular HGB Conc 34.4 g/dl (31.0-35.0); Mean Corpuscular Hemoglobin 30.9 pg (27.0-33.0); Mean Platelet Volume 9.9 fL (9.4-12.3); Monocytes Absolute Auto 0.7 X10*3/uL (0.1-1.2); Monocytes Percent Auto 16.8 % (2-11); Neutrophils Absolute Auto 2.3 x10*3/uL (2.0-8.3); Platelet Count 116 X10*3/uL (160-400); Red Blood Count 3.91 X10*6/uL (4.20-5.50); Red Cell Distribution Width 13.5 % (11.0-16.0); SCAN SMEAR FLAG 1; White Blood Count 4.2 X10*3/uL (4.8-10.8)
[2022-05-30 21:51] VITALS: BP 104/45; PULSE 54; RESP 16; TEMP 36.9; O2SAT 94
[2022-05-30 21:54] LABS: Prothrombin Time 11.9 SEC (10.0-13.1)
[2022-05-30 22:00] LABS: Alanine Aminotransferase 15 U/L (0-31); Albumin Level 3.3 g/dL (3.5-5.0); Alkaline Phosphatase 47 U/L (39-117); Anion Gap 14 (12-20); Aspartate Amino Transferase 43 U/L (5-31); Bilirubin Direct 0.3 mg/dL (0.0-0.5); Bilirubin Total 0.6 mg/dL (0.0-1.0); Blood Urea Nitrogen 18 mg/dL (9-16); Carbon Dioxide 24 mmol/L (22-29); Chloride 105 mmol/L (96-108); Creatinine Clr Calc Pharmacy 62.4; Estimated Glomerular Filt Rate > 60; Ethanol < 10 mg/dL; Glucose Random 93 mg/dL (60-115); Magnesium 1.8 mg/dL (1.6-2.6); Sodium 139 mmol/L (135-145); Total Protein 5.9 g/dL (6.5-8.0)
[2022-05-30 22:04] LABS: SLIDE REVIEW VERIFIED
[2022-05-30 22:05] LABS: B Type Natriuretic Peptide 158 pg/mL (<100); Troponin-I High Sensitivity 16.7 ng/L (<3.5-17.0)
[2022-05-30 22:20] LABS: TSH reflex Free T4 0.98 uIU/mL (0.32-4.0)
[2022-05-30 23:22] LABS: Appearance Urine Clear; Color Urine Yellow; Glucose Urine UA Negative (Negative); Leukocyte Esterase Urine Negative (Negative); Nitrite Urine Negative (Negative); Urine Blood Small (1+) (Negative); Urine Ketones 15 mg/dL (Negative); Urine Protein Trace mg/dL (Neg-Trace)
[2022-05-30 23:27] LABS: Bacteria Urine None Seen (None Seen); Hyaline Casts Urine 0-2 /LPF (0-2); Squamous Epithelial Cell Urine 0-2 /HPF (0-2); WBC Urine 0-5 /HPF (0-5)
[2022-05-30 23:35] LABS: Amphetamine Screen Urine Not Detected (Not Detect); Barbiturates, Urine Not Detected (Not Detect); Benzodiazepines Screen Urine Not Detected (Not Detect); Cannabinoid Screen Urine Not Detected (Not Detect); Cocaine Screen Urine Not Detected (Not Detect); Fentanyl, urine POSITIVE (Not Detect); Opiate Screen Urine Not Detected (Not Detect); Phencyclidine Screen Urine Not Detected (Not Detect)
[2022-05-31 00:02] VITALS: BP 148/47; PULSE 55; RESP 12; O2SAT 96
[2022-05-31] MEDS: levoFLOXacin 500 MG TABLET PO (00:02)
[2022-05-31 09:31] VITALS: BP 150/68; PULSE 57; RESP 20; TEMP 36.9; O2SAT 95
[2022-05-31] MEDS: Losartan Potassium 50 MG TABLET 100 MG PO (10:08)
[2022-05-31] MEDS: Multivitamin TABLET 1 TAB PO (10:08)
[2022-05-31] MEDS: Memantine HCl 10 MG TABLET PO (10:08)
[2022-05-31] MEDS: Metoprolol Tartrate 100 MG TABLET PO (10:08)
[2022-05-31] MEDS: Levothyroxine Sodium 112 MCG TABLET PO (10:08)
--- NOTE | 2022-05-31 10:17 | PC.NURSE ---
pt awake/alert to self, phototypesetting equipment monitor intact nsr 60s, pt incontinent large amount of urine, full bad change performed, put on pure wick, vss, pt medicated per order, call nix within reach, will continue to monitor
--- NOTE | 2022-05-31 10:17 | PC.NURSE ---
Called pt's daughter Lexy to request that she bring Paxyifand to the ED per the pharmacy. Lexy was at work and said she would call back as soon as she could.
--- NOTE | 2022-05-31 13:04 | MHC.CM.ED ---
Patient remains in ER. At 09:00, spoke with patient's daughter/HCP, Lexy via telephone at [phone]. Lexy aware physical therapy eval pending. Lexy would only want patient to go to [facility]. T/W explained patient and spouse might be difficult to place due to being Covid positive. Lexy does not want patient and spouse placed at any other facility and would take patient and spouse home. Physical therapy eval is completed at this time. Short term rehab is recommended. Neither [facility] or [facility] are able to accept Covid positive patients at this time. Lexy requesting referral to [facility] [address]. T/W explained [facility] not accepting positive Covid patients. Lexy became upset at this time and stated have some compassion for my situation. T/W explained patient and spouse do not qualify for inpatient admission. Also explained T/W would happily send more referrals out but Lexy stated she only wanted referrals to [facility] and [facility]. [facility] will be booked for 330pm. Briana MIXON and Rachel VILLAR aware. Continue to monitor for d/c needs.
--- NOTE | 2022-05-31 14:11 | PC.NURSE ---
pt given sandwich and pudding, pt to discharge home with family, transportation being set up, will continue to monitor
[2022-05-31] MEDS: Omeprazole 20 MG CAPSULE.DR PO (16:49)
== END 2022-05-31 17:00 | disposition home or self-care (01) ==
PROVIDERS: Emergency Provider Emergency Medicine
DX: U07.1 COVID-19 (principal); F03.90 Unspecified dementia, unspecified severity, without behavioral disturbance, psychotic disturbance, mood disturbance, and anxiety; R53.1 Weakness; R06.02 Shortness of breath; Z79.899 Other long term (current) drug therapy
CPT/HCPCS: 36415; 70450; 71045; 80048; 80076; 80307; 81001; 82077; 83735; 83880; 84443; 84484; 85025; 85610; 87635; 93005; 97162; 99285

== ENCOUNTER 2023-11-14 13:18 | Inpatient (IN) | payer MEDICARE, OTHER, SELFPAY ==
[2023-11-14] VITALS (7 sets, daily range): BP systolic 120–150; BP diastolic 52–78; PULSE 61–99; RESP 16–25; TEMP 36.3–37.7; O2SAT 95–100; BMI 32.9; BMI 32.2
--- NOTE | ~2023-11-14 | XR_ITS ---
EXAMINATION: XR CHEST CLINICAL INFORMATION: Cough. Fevers. COMPARISON: Chest radiograph 05/30/2022 TECHNIQUE: Frontal view of the chest was obtained. FINDINGS: Focal airspace opacity is projected over the right upper pulmonary lobe new compared with 05/30/2022. Low lung volumes are present. The heart size is normal. Dense aortic calcific atherosclerosis visualized. No effusions or pneumothoraces. XR/XR chest 1V IMPRESSION: Right upper lobe airspace opacity suspicious for consolidative pneumonia. Recommend follow-up chest radiographs in 4-6 week to demonstrate full resolution and exclude findings related to underlying neoplasm or earlier shorter term follow-up with CT of the thorax as clinically indicated.
--- NOTE | ~2023-11-14 | CT_ITS ---
EXAMINATION: CT HEAD WITHOUT CONTRAST CLINICAL INFORMATION: Trauma. Fall. Altered mental status. COMPARISON: 05/30/2022 and selected images from prior TECHNIQUE: Contiguous axial imaging was performed from the skull base to vertex without intravenous administration of contrast. Repeat imaging required due to motion artifact. This CT examination was performed using dose optimization techniques as appropriate, variously including the following: *Automated exposure control *Adjustment of mA and/or kV according to patient size (this includes techniques or standardized protocols for targeted exams where dose is matched to indication/reason for exam; i.e. extremities or head) *Use of iterative reconstruction technique DLP: 951 mGy-cm FINDINGS: No acute hemorrhage. No abnormal intra or extra-axial collections. No mass effect or shift of midline structures. There is mild symmetric prominence of ventricles and sulcal spaces consistent with age-related volume loss. 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 No significant change compared with 2021. The posterior fossa and orbits are intact. No acute fracture. Mild mucosal thickening in the nasal sinuses and sphenoid sinus. The patient is largely edentulous. CT/CT head/brain wo IV con IMPRESSION: No acute intracranial pathology.
--- NOTE | 2023-11-14 13:28 | ECG_ITS ---
Test Reason : WEAKNESS Blood Pressure : / mmHG Vent. Rate : 066 BPM Atrial Rate : 066 BPM P-R Int : 154 ms QRS Dur : 106 ms QT Int : 386 ms P-R-T Axes : 080 -31 039 degrees QTc Int : 404 ms Normal sinus rhythm Left axis deviation Minimal voltage criteria for LVH, may be normal variant ( [place] product ) Nonspecific ST and T wave abnormality Abnormal ECG When compared with ECG of 30-MAY-2022 20:48, No significant change was found Referred By: Ashley Corral Electronically Signed By:DEWAYNE COLEMAN
--- NOTE | 2023-11-14 13:32 | PC.NURSE ---
Pt is alert to verbal stimuli, noted to be lethargic and slow to answer questions. Pt presents from home via EMS for AMS, and flu-like symptoms since , pt also had fall out of bed yesterday per EMS. Pt normally ambulates and is interactive per EMS. Pts breathing noted to be even and unlabored, skin warm and pale. Pt denies pain when asked, pt does not answer all quesitons, very lethargic. Pupils pinpoint. No obvious trauma noted to face or head.
--- NOTE | 2023-11-14 13:35 | PC.NURSE ---
Pt noted to be 90% on RA, placed on 2L O2 via NC per MD order and improved to 95-96%. Pt placed on property assessment monitor, NSR. IV established in the left AC 18G.
--- NOTE | 2023-11-14 13:37 | ED.WEAKNESS ---
HPI - Weakness General Chief complaint: Altered Mental Status Stated complaint: INC LETHARGY,FEVER,SPO2 86% ON RA PER EMS Time Seen by Provider: 11/14/23 13:27 Source: patient and family Mode of arrival: EMS Limitations: altered mental status History of Present Illness HPI Narrative: 88 yo female with PMH of dementia, HTN, hypothyroidism, mood disorder here with c/o weakness, foul smelling urine, fall out of bed yesterday no LOC, worsening mentation since , Low o2 sat 90% on RA. She is staring off and dazed. Complaint: generalized weakness Onset (ago): day(s) () Duration: constant Location: generalized Migration: none Severity: moderate Relieving factors: none Exacerbating factors: none Context: recent illness Associated symptoms: loss of appetite and other (foul smelling urine) Related Data Home Medications Medication Instructions Recorded Confirmed cholecalciferol (vitamin D3) 25 25 mcg PO DAILY 09/25/20 05/30/22 mcg (1,000 unit) tablet (Vitamin D3) multivitamin 1 tab PO DAILY 09/25/20 05/30/22 nirmatrelvir 300 mg (150 mg 3 tab PO BID 05/30/22 05/30/22 x2)-ritonavir 100 mg tablet,dose pack (Paxlovid) quetiapine 25 mg tablet 50 mg PO BID 05/30/22 05/30/22 Previous Rx's Medication Instructions Recorded amlodipine 5 mg tablet 5 mg PO BEDTIME 30 days #30 tabs 08/12/21 divalproex 250 mg tablet,delayed 250 mg PO BID 30 days #60 tabs 08/12/21 release donepezil 10 mg tablet 10 mg PO BEDTIME 30 days #30 tabs 08/12/21 levothyroxine 112 mcg tablet 112 mcg PO DAILY@0630 30 days #30 08/12/21 tabs losartan 100 mg tablet 100 mg PO DAILY 30 days #30 tabs 08/12/21 memantine 10 mg tablet 10 mg PO BID 30 days #60 tabs 08/12/21 metoprolol tartrate 100 mg tablet 100 mg PO BID 30 days #60 tabs 08/12/21 omeprazole 20 mg capsule,delayed 20 mg PO BID@0630,1630 30 days #60 08/12/21 release caps quetiapine 100 mg tablet 100 mg PO BEDTIME 30 days #30 tabs 08/12/21 ropinirole 0.5 mg tablet 1.5 mg (3 x 0.5 mg) PO BEDTIME 30 08/12/21 days #90 tabs sertraline 50 mg tablet 50 mg PO BEDTIME 30 days #30 tabs 08/12/21 simvastatin 20 mg tablet 20 mg PO BEDTIME 30 days #30 tabs 08/12/21 Allergies Allergy/AdvReac Type Severity Reaction Status Date / Time Penicillins [PENICILLINS] Allergy Intermediate Headache Verified 08/03/21 20:30 penicillin V Allergy Unknown swelling Verified 10/20/18 00:00 procaine [From NOVOCAIN] Allergy Unknown Headache Verified 08/03/21 20:30 Review of Systems Review of Systems: ROS unable to be obtained due to altered mental status [facility] Past Medical History Attestation statement: The following information was validated with the patient. Source: old records reviewed Medical History Hypothyroidism RLS (restless legs syndrome) GERD (gastroesophageal reflux disease) High cholesterol Hypertension Mood disorder Anxiety Dementia Social History Social History Household Members: Spouse Housing: House Do you presently have visiting nurse or other home services: No Alcohol intake: unknown Patient Tobacco Use Status: Never used Tobacco Smoked in Last 30 Days: No Use of substances other than those prescribed or required for medical reasons: No Advance Directives: Yes Advance Directives on File: Yes Advance Directives Date on File: 08/15/21 service: No Current occupational status: retired Sexual orientation: Straight/Heterosexual Physical Exam Vital Signs: Vital Signs: Last Vital Signs Temp 98.9 F 11/14/23 15:38 Pulse 61 11/14/23 15:38 Resp 23 H 11/14/23 15:38 BP 138/52 L 11/14/23 15:38 Pulse Ox 98 11/14/23 15:38 O2 Del Method Nasal Cannula 11/14/23 15:38 O2 Flow Rate 2 11/14/23 15:38 Oxygen Flow Rate 2 11/14/23 13:31 BMI result Body Mass Index 32.9 Appearance: Somnolent. dazed. Mild acute distress. Eyes: Pupils equal, round and reactive to light. ENT: Pharynx dry MM Neck: Normal inspection. Neck supple. CVS: Normal heart rate and rhythm. Pulses normal. Respiratory: No respiratory distress. Breath sounds diminished poor effortl. Abdomen: Soft and nontender. Skin: Skin warm and dry. pale skin color. Normal skin turgor. Extremities: No lower extremity edema. No calf ttp Neuro: confused staring off no focal deficits, diffusely weak Medications Administered Discontinued Medications Generic Name Dose Route Start Last Admin Trade Name Charli PRN Reason Stop Dose Admin Acetaminophen 650 mg 11/14/23 13:28 11/14/23 14:09 Acetaminophen 325 Mg Tablet PO 11/14/23 13:29 650 mg ONCE ONE Administration Sodium Chloride 1,000 mls @ 999 mls/hr 11/14/23 13:30 11/14/23 15:38 Ns IV 11/14/23 14:30 Infused .Q1H1M DENIS Infusion Ceftriaxone Sodium 1 gm/ 50 mls @ 100 mls/hr 11/14/23 13:31 11/14/23 14:45 Sodium Chloride IV 11/14/23 14:00 Infused ONCE ONE Infusion Medical Decision Making Medical Decision Making [facility] Narrative: 88 yo female with PMH of dementia, HTN, hypothyroidism, mood disorder at this time will need labs, cultures, CXR, UA and start on empiric ceftriaxone given fall out of bed will obtain CT scan for ICH. Suspect encephalopathy from infection. Differential Diagnosis Differential Diagnoses: The differential diagnosis associated with the presentation includes pneumonia, UTI, viral syndrome Admission/Observation Consideration of admission/observation: Escalation of care including admission/observation considered will admit for abx Consult Healthcare Provider Management of the patient was discussed with: Hospitalist (will admit) Lab Data [facility] Lab Attestation statement: I reviewed the patient's lab results. 11/14/23 13:52 11/14/23 13:52 Labs: Lab Results 11/14/23 11/14/23 11/14/23 Range/Units 13:52 13:56 13:58 WBC 11.8 H (4.8-10.8) X10*3/uL RBC 3.84 L (4.20-5.50) X10*6/uL Hgb 12.1 (12.0-16.0) g/dl Hct 35.3 L (37.0-47.0) % MCV 91.9 (80.0-98.0) fL MCH 31.5 (27.0-33.0) pg MCHC 34.3 (31.0-35.0) g/dl RDW 14.5 (11.0-16.0) % Plt Count 166 D (160-400) X10*3/uL MPV 10.3 (9.4-12.3) fL Immature Gran % (Auto) 0.3 (0.0-0.4) % Neut % (Auto) 77.3 H (45-73) % Lymph % (Auto) 10.0 L (20-40) % [place] % (Auto) 12.0 H (2-11) % Eos % (Auto) 0.1 (0-4) % Baso % (Auto) 0.3 (0-2) % Lymph # (Auto) 1.2 (1.2-4.9) X10*3/uL [place] # (Auto) 1.4 H (0.1-1.2) X10*3/uL Eos # (Auto) 0.0 (0.0-0.4) X10*3/uL Baso # (Auto) 0.0 (0.0-0.2) X10*3/uL Abs Immat Gran (auto) 0.04 H (0.00-0.03) X10*3/uL Absolute Neuts (auto) 9.1 H (2.0-8.3) x10*3/uL Absolute Nucleated RBC 0.000 (0.0-0.012) X10*3/uL Nucleated RBC % (auto) 0.0 (0.0-0.2) /100WBC VBG pH 7.45 H (7.32-7.43) VBG pCO2 44 mmHg VBG pO2 38 mmHg VBG HCO3 30 H (22-26) mmol/L VBG O2 Saturation 63.0 % VBG Base Excess 6.3 mmol/L Sodium 140 (135-145) mmol/L Potassium 3.6 (3.3-5.1) mmol/L Chloride 105 (96-108) mmol/L Carbon Dioxide 28 (22-29) mmol/L Anion Gap 11 L (12-20) BUN 22 H (9-16) mg/dL Creatinine 0.83 (0.5-1.4) mg/dL Estim Creat Clear Calc 53.6 Estimated GFR > 60 Random Glucose 109 (60-115) mg/dL Lactic Acid 1.2 (0.5-2.0) mmol/L Calcium 8.6 D (8.4-10.2) mg/dL Magnesium 2.1 (1.6-2.6) mg/dL Total Bilirubin 1.2 H (0.0-1.0) mg/dL Direct Bilirubin 0.3 (0.0-0.5) mg/dL AST 24 (5-31) U/L ALT 11 (0-31) U/L Alkaline Phosphatase 53 (39-117) U/L Ammonia (13-55) umol/L Troponin I High Sens (<3.5-17.0) ng/L Total Protein 6.7 (6.5-8.0) g/dL Albumin 3.5 (3.5-5.0) g/dL Procalcitonin 0.09 ng/mL Urine Color Urine Appearance Urine pH (5.0-9.0) Ur Specific [place] (1.005-1.025) Urine Protein (Neg-Trace) mg/dL Urine Glucose (UA) (Negative) mg/dL Urine Ketones (Negative) mg/dL Urine Blood (Negative) Urine Nitrite (Negative) Ur Leukocyte Esterase (Negative) Urine RBC (0-2) /HPF Urine WBC (0-5) /HPF Ur Squamous Epith Cells (0-2) /HPF Urine Bacteria (None Seen) Hyaline Casts (0-2) /LPF Valproic Acid (50.0-100.0) mcg/mL COVID-19 (EUD) Negative (Negative) COVID-19 Clin Com See Note Influenza Type A (WAGNER) Negative (Negative) Influenza Type B (WAGNER) Negative (Negative) Influenza A & B Note See Note 11/14/23 11/14/23 11/14/23 Range/Units 13:59 14:34 14:57 WBC (4.8-10.8) X10*3/uL RBC (4.20-5.50) X10*6/uL Hgb (12.0-16.0) g/dl Hct (37.0-47.0) % MCV (80.0-98.0) fL MCH (27.0-33.0) pg MCHC (31.0-35.0) g/dl RDW (11.0-16.0) % Plt Count (160-400) X10*3/uL MPV (9.4-12.3) fL Immature Gran % (Auto) (0.0-0.4) % Neut % (Auto) (45-73) % Lymph % (Auto) (20-40) % [place] % (Auto) (2-11) % Eos % (Auto) (0-4) % Baso % (Auto) (0-2) % Lymph # (Auto) (1.2-4.9) X10*3/uL [place] # (Auto) (0.1-1.2) X10*3/uL Eos # (Auto) (0.0-0.4) X10*3/uL Baso # (Auto) (0.0-0.2) X10*3/uL Abs Immat Gran (auto) (0.00-0.03) X10*3/uL Absolute Neuts (auto) (2.0-8.3) x10*3/uL Absolute Nucleated RBC (0.0-0.012) X10*3/uL Nucleated RBC % (auto) (0.0-0.2) /100WBC VBG pH (7.32-7.43) VBG pCO2 mmHg VBG pO2 mmHg VBG HCO3 (22-26) mmol/L VBG O2 Saturation % VBG Base Excess mmol/L Sodium (135-145) mmol/L Potassium (3.3-5.1) mmol/L Chloride (96-108) mmol/L Carbon Dioxide (22-29) mmol/L Anion Gap (12-20) BUN (9-16) mg/dL Creatinine (0.5-1.4) mg/dL Estim Creat Clear Calc Estimated GFR Random Glucose (60-115) mg/dL Lactic Acid (0.5-2.0) mmol/L Calcium (8.4-10.2) mg/dL Magnesium (1.6-2.6) mg/dL Total Bilirubin (0.0-1.0) mg/dL Direct Bilirubin (0.0-0.5) mg/dL AST (5-31) U/L ALT (0-31) U/L Alkaline Phosphatase (39-117) U/L Ammonia 19 (13-55) umol/L Troponin I High Sens 25.0 H (<3.5-17.0) ng/L Total Protein (6.5-8.0) g/dL Albumin (3.5-5.0) g/dL Procalcitonin ng/mL Urine Color Urine Appearance Urine pH (5.0-9.0) Ur Specific [place] (1.005-1.025) Urine Protein (Neg-Trace) mg/dL Urine Glucose (UA) (Negative) mg/dL Urine Ketones (Negative) mg/dL Urine Blood (Negative) Urine Nitrite (Negative) Ur Leukocyte Esterase (Negative) Urine RBC (0-2) /HPF Urine WBC (0-5) /HPF Ur Squamous Epith Cells (0-2) /HPF Urine Bacteria (None Seen) Hyaline Casts (0-2) /LPF Valproic Acid 35.9 L (50.0-100.0) mcg/mL COVID-19 (EDU) (Negative) COVID-19 Clin Com Influenza Type A (WAGNER) (Negative) Influenza Type B (WAGNER) (Negative) Influenza A & B Note 11/14/23 Range/Units 15:37 WBC (4.8-10.8) X10*3/uL RBC (4.20-5.50) X10*6/uL Hgb (12.0-16.0) g/dl Hct (37.0-47.0) % MCV (80.0-98.0) fL MCH (27.0-33.0) pg MCHC (31.0-35.0) g/dl RDW (11.0-16.0) % Plt Count (160-400) X10*3/uL MPV (9.4-12.3) fL Immature Gran % (Auto) (0.0-0.4) % Neut % (Auto) (45-73) % Lymph % (Auto) (20-40) % [place] % (Auto) (2-11) % Eos % (Auto) (0-4) % Baso % (Auto) (0-2) % Lymph # (Auto) (1.2-4.9) X10*3/uL [place] # (Auto) (0.1-1.2) X10*3/uL Eos # (Auto) (0.0-0.4) X10*3/uL Baso # (Auto) (0.0-0.2) X10*3/uL Abs Immat Gran (auto) (0.00-0.03) X10*3/uL Absolute Neuts (auto) (2.0-8.3) x10*3/uL Absolute Nucleated RBC (0.0-0.012) X10*3/uL Nucleated RBC % (auto) (0.0-0.2) /100WBC VBG pH (7.32-7.43) VBG pCO2 mmHg VBG pO2 mmHg VBG HCO3 (22-26) mmol/L VBG O2 Saturation % VBG Base Excess mmol/L Sodium (135-145) mmol/L Potassium (3.3-5.1) mmol/L Chloride (96-108) mmol/L Carbon Dioxide (22-29) mmol/L Anion Gap (12-20) BUN (9-16) mg/dL Creatinine (0.5-1.4) mg/dL Estim Creat Clear Calc Estimated GFR Random Glucose (60-115) mg/dL Lactic Acid (0.5-2.0) mmol/L Calcium (8.4-10.2) mg/dL Magnesium (1.6-2.6) mg/dL Total Bilirubin (0.0-1.0) mg/dL Direct Bilirubin (0.0-0.5) mg/dL AST (5-31) U/L ALT (0-31) U/L Alkaline Phosphatase (39-117) U/L Ammonia (13-55) umol/L Troponin I High Sens (<3.5-17.0) ng/L Total Protein (6.5-8.0) g/dL Albumin (3.5-5.0) g/dL Procalcitonin ng/mL Urine Color Dark Yellow Urine Appearance Clear Urine pH 6.5 (5.0-9.0) Ur Specific [place] >= 1.030 H (1.005-1.025) Urine Protein 30 (1+) H (Neg-Trace) mg/dL Urine Glucose (UA) Negative (Negative) mg/dL Urine Ketones 15 (Negative) mg/dL Urine Blood Negative (Negative) Urine Nitrite Negative (Negative) Ur Leukocyte Esterase Negative (Negative) Urine RBC 0-2 (0-2) /HPF Urine WBC 0-5 (0-5) /HPF Ur Squamous Epith Cells 0-2 (0-2) /HPF Urine Bacteria None Seen (None Seen) Hyaline Casts 0-2 (0-2) /LPF Valproic Acid (50.0-100.0) mcg/mL COVID-19 (EDU) (Negative) COVID-19 Clin Com Influenza Type A (WAGNER) (Negative) Influenza Type B (WAGNER) (Negative) Influenza A & B Note Independent Interpretation I performed an independent interpretation of an: EKG, Plain X-Ray (RUL pneumonia) and CT Scan (no ICH) Interpretation: Rate: 66 Rhythm: NSR [place]: left LVH Normal P waves. Normal THOM. Normal QRS complex. ST T wave : no SAMPSON, nonspecific ST T wave changes lateral leads qTC: 404 prior studies: no acute ischemia The study has been interpreted contemporaneously by me. . Radiology Impression Discussion of test interpretation with radiology: I have reviewed the radiologist's reading. Independent Historian Clinical information obtained from an independent historian. History obtained from or confirmed by: EMS External Record Review External record reviewed: Inpatient record Discharge Plan Discharge Clinical Impression: Acute encephalopathy, Weakness Febrile Qualifiers: Fever type: unspecified Qualified Code(s): R50.9 - Fever, unspecified Pneumonia Qualifiers: Pneumonia type: due to unspecified organism Laterality: right Lung location: upper lobe of lung Qualified Code(s): J18.9 - Pneumonia, unspecified organism Patient Disposition: Admitted As Inpatient
[2023-11-14 14:01] LABS: MANUAL DIFF FLAG NO
[2023-11-14] MEDS: 0.9 % Sodium Chloride 1,000 ML 999 ML IV (14:01)
[2023-11-14 14:03] LABS: Basophils Percent Auto 0.3 % (0-2); Eosinophils Percent Auto 0.1 % (0-4); Hematocrit 35.3 % (37.0-47.0); Hemoglobin 12.1 g/dl (12.0-16.0); Imm Gran Abs Auto 0.04 X10*3/uL (0.00-0.03); Imm Gran Pct Auto 0.3 % (0.0-0.4); Lymphocytes Absolute Auto 1.2 X10*3/uL (1.2-4.9); Mean Corpuscular HGB Conc 34.3 g/dl (31.0-35.0); Mean Corpuscular Hemoglobin 31.5 pg (27.0-33.0); Mean Corpuscular Volume 91.9 fL (80.0-98.0); Mean Platelet Volume 10.3 fL (9.4-12.3); Monocytes Absolute Auto 1.4 X10*3/uL (0.1-1.2); Neutrophils Absolute Auto 9.1 x10*3/uL (2.0-8.3); Neutrophils Percent Auto 77.3 % (45-73); Platelet Count 166 X10*3/uL (160-400); Red Blood Count 3.84 X10*6/uL (4.20-5.50); Red Cell Distribution Width 14.5 % (11.0-16.0); White Blood Count 11.8 X10*3/uL (4.8-10.8)
[2023-11-14 14:04] LABS: VBG Base Excess 6.3 mmol/L; VBG HCO3 30 mmol/L (22-26); VBG pCO2 44 mmHg; VBG pH 7.45 (7.32-7.43); VBG pO2 38 mmHg
[2023-11-14] MEDS: cefTRIAXone sodium 1 GM in 0.9 % Sodium Chloride 50 ML IV (14:06)
[2023-11-14 14:08] LABS: Venous Blood Gas Refer to POC result
[2023-11-14] MEDS: Acetaminophen 325 MG TABLET 650 MG PO (14:09)
[2023-11-14 14:14] LABS: Lactic Acid 1.2 mmol/L (0.5-2.0)
[2023-11-14 14:24] LABS: COVID-19 Test Negative (Negative); IDNOW Serial# 08D9AD1C; IDNOW Serial# 152EDE1D; Influenza A Negative (Negative); Influenza B2 Negative (Negative)
[2023-11-14 14:26] LABS: Alanine Aminotransferase 11 U/L (0-31); Albumin Level 3.5 g/dL (3.5-5.0); Alkaline Phosphatase 53 U/L (39-117); Anion Gap 11 (12-20); Aspartate Amino Transferase 24 U/L (5-31); Bilirubin Direct 0.3 mg/dL (0.0-0.5); Bilirubin Total 1.2 mg/dL (0.0-1.0); Blood Urea Nitrogen 22 mg/dL (9-16); Calcium 8.6 mg/dL (8.4-10.2); Carbon Dioxide 28 mmol/L (22-29); Chloride 105 mmol/L (96-108); Creatinine Clr Calc Pharmacy 53.6; Estimated Glomerular Filt Rate > 60; Glucose Random 109 mg/dL (60-115); Magnesium 2.1 mg/dL (1.6-2.6); Potassium 3.6 mmol/L (3.3-5.1); Sodium 140 mmol/L (135-145); Total Protein 6.7 g/dL (6.5-8.0)
--- NOTE | 2023-11-14 14:36 | PC.NURSE ---
Pt medicated per DEC. Taken to CT scan,
[2023-11-14 14:39] LABS: Procalcitonin 0.09 ng/mL
[2023-11-14 14:55] LABS: Valproate 35.9 mcg/mL (50.0-100.0)
[2023-11-14 15:06] LABS: Ammonia 19 umol/L (13-55)
--- NOTE | 2023-11-14 15:19 | PC.NURSE ---
Pt continues to rest with eyes closed, clenched fist. Not answering any questions. VSS. Pt offered food tray and no verbal response. 1:1 pt observer at bedside for monitoring. Pt pending CARE team at this time.
[2023-11-14 15:43] LABS: Appearance Urine Clear; Color Urine Dark Yellow; Glucose Urine UA Negative (Negative); Leukocyte Esterase Urine Negative (Negative); Nitrite Urine Negative (Negative); PH 6.5 (5.0-9.0); Specific Gravity - Urine >= 1.030 (1.005-1.025); UMIC TRIGGER UACC YES; Urine Blood Negative (Negative); Urine Ketones 15 mg/dL (Negative); Urine Protein 30 (1+) mg/dL (Neg-Trace)
--- NOTE | 2023-11-14 15:44 | PM.IMHP ---
History of Present Illness Date of Service: 11/14/23 Chief Complaint: Encephalopathy An 88 years old lady with PMH of HTN, dementia, depression, asthma among others who presents to the hospital with altered mentation, lethargy and weakness for 2 days. The patient is poor historian and could not provide any meaningful story. from ED provider and EMS. She was brought in for increased weakness and lethargy. foul smeeling urine and fell out of bed yesterday. Since her mentation has been worsening. She denies any fever, chills, No chest pain, palpitations, SOB, nausea, vomiting, diarrhea or urinary symptoms. In ED found to have RUL infiltrates on CXR. UA still pending. CT head showing chronic microangiopathy. admitted for further evaluation and management. Review of Systems Review of Systems: Yes Unobtainable due to mental status [facility] Medical History Hypothyroidism RLS (restless legs syndrome) GERD (gastroesophageal reflux disease) High cholesterol Hypertension Mood disorder Anxiety Dementia Social History Household Members: Spouse Housing: House Do you presently have visiting nurse or other home services: No Alcohol intake: unknown Patient Tobacco Use Status: Never used Tobacco Smoked in Last 30 Days: No Use of substances other than those prescribed or required for medical reasons: No Advance Directives: Yes Advance Directives on File: Yes Advance Directives Date on File: 08/15/21 service: No Current occupational status: retired Sexual orientation: Straight/Heterosexual Meds Allergies Allergy/AdvReac Type Severity Reaction Status Date / Time Penicillins [PENICILLINS] Allergy Intermediate Headache Verified 08/03/21 20:30 penicillin V Allergy Unknown swelling Verified 10/20/18 00:00 procaine [From NOVOCAIN] Allergy Unknown Headache Verified 08/03/21 20:30 Home Medications Medication Instructions Recorded Confirmed Last Taken Type cholecalciferol (vitamin D3) 25 25 mcg PO DAILY 09/25/20 05/30/22 09/25/20 History mcg (1,000 unit) tablet (Vitamin D3) multivitamin 1 tab PO DAILY 09/25/20 05/30/22 09/25/20 History nirmatrelvir 300 mg (150 mg 3 tab PO BID 05/30/22 05/30/22 Unknown History x2)-ritonavir 100 mg tablet,dose pack (Paxlovid) quetiapine 25 mg tablet 50 mg PO BID 05/30/22 05/30/22 Unknown History Physical Exam Vital Signs and Narrative: Vital Signs: Last Vital Signs Temp 98.9 F 11/14/23 15:38 Pulse 61 11/14/23 15:38 Resp 23 H 11/14/23 15:38 BP 138/52 L 11/14/23 15:38 Pulse Ox 98 11/14/23 15:38 O2 Del Method Nasal Cannula 11/14/23 15:38 O2 Flow Rate 2 11/14/23 15:38 Oxygen Flow Rate 2 11/14/23 13:31 BMI result Body Mass Index 32.9 Const: Other: Constitutional : lethargic and frail, not in distress Neck : Normal inspection, Supple Cardiovascular : RRR, no JVP, no lower extremity edema Respiratory : good bilateral air entry, no crackles, wheezes or rhonchi Gastrointestinal: soft, lax, Normal bowel sounds, Non tender Skin : Warm, Dry Neurological : Alert with stimulation & oriented to self only, No focal deficit Results Labs 11/14/23 13:52 11/14/23 13:52 Labs: Laboratory Results - last 24 hr 11/14/23 11/14/23 11/14/23 13:52 13:56 13:58 MCV 91.9 MCH 31.5 MCHC 34.3 RDW 14.5 Plt Count 166 D MPV 10.3 Immature Gran % (Auto) 0.3 Neut % (Auto) 77.3 H Lymph % (Auto) 10.[address] [place] % (Auto) 12.0 H Eos % (Auto) 0.1 Baso % (Auto) 0.3 Lymph # (Auto) 1.2 [place] # (Auto) 1.4 H Eos # (Auto) 0.0 Baso # (Auto) 0.0 Abs Immat Gran (auto) 0.04 H Absolute Neuts (auto) 9.1 H Absolute Nucleated RBC 0.000 Nucleated RBC % (auto) 0.0 VBG pH 7.45 H VBG pCO2 44 VBG pO2 38 VBG HCO3 30 H VBG O2 Saturation 63.0 VBG Base Excess 6.3 Anion Gap 11 L Estim Creat Clear Calc 53.6 Estimated GFR > 60 Random Glucose 109 Lactic Acid 1.2 Calcium 8.6 D Magnesium 2.1 Total Bilirubin 1.2 H Direct Bilirubin 0.3 AST 24 ALT 11 Alkaline Phosphatase 53 Ammonia Total Protein 6.7 Albumin 3.5 Procalcitonin 0.09 Urine Color Urine Appearance Urine pH Ur Specific [place] Urine Protein Urine Glucose (UA) Urine Ketones Urine Blood Urine Nitrite Ur Leukocyte Esterase Valproic Acid COVID-19 (EDU) Negative COVID-19 Clin Com See Note Influenza Type A (WAGNER) Negative Influenza Type B (WAGNER) Negative Influenza A & B Note See Note 11/14/23 11/14/23 11/14/23 14:34 14:57 15:37 MCV MCH MCHC RDW Plt Count MPV Immature Gran % (Auto) Neut % (Auto) Lymph % (Auto) [place] % (Auto) Eos % (Auto) Baso % (Auto) Lymph # (Auto) [place] # (Auto) Eos # (Auto) Baso # (Auto) Abs Immat Gran (auto) Absolute Neuts (auto) Absolute Nucleated RBC Nucleated RBC % (auto) VBG pH VBG pCO2 VBG pO2 VBG HCO3 VBG O2 Saturation VBG Base Excess Anion Gap Estim Creat Clear Calc Estimated GFR Random Glucose Lactic Acid Calcium Magnesium Total Bilirubin Direct Bilirubin AST ALT Alkaline Phosphatase Ammonia 19 Total Protein Albumin Procalcitonin Urine Color Dark Yellow Urine Appearance Clear Urine pH 6.5 Ur Specific [place] >= 1.030 H Urine Protein 30 (1+) H Urine Glucose (UA) Negative Urine Ketones 15 Urine Blood Negative Urine Nitrite Negative Ur Leukocyte Esterase Negative Valproic Acid 35.9 L COVID-19 (EDU) COVID-19 Clin Com Influenza Type A (WAGNER) Influenza Type B (WAGNER) Influenza A & B Note Imaging Radiologist's Impressions: Impressions Chest X-Ray 11/14/23 14:49 IMPRESSION: Right upper lobe airspace opacity suspicious for consolidative pneumonia. Recommend follow-up chest radiographs in 4-6 week to demonstrate full resolution and exclude findings related to underlying neoplasm or earlier shorter term follow-up with CT of the thorax as clinically indicated. Head CT 11/14/23 15:06 IMPRESSION: No acute intracranial pathology. Assessment and Plan (1) Pneumonia: Qualifiers: Laterality: right Lung location: upper lobe of lung Pneumonia type: due to unspecified organism Qualified Code(s): J18.9 - Pneumonia, unspecified organism Status: Acute (2) Sepsis: Status: Acute (3) Acute encephalopathy: Status: Acute Plan An 88 years old lady with PMH of HTN, dementia, depression, asthma among others who presents to the hospital with altered mentation, lethargy and weakness for 2 days. Sepsis 2/2 Pneumonia Has Leukocytosis, tachycardia and tachypnea CXR showing RUL infiltrates; concerning for possible underlying mass ? to repeat CXR in few weeks Pending cultures Start Azithromycin and Ceftriaxone O2 supplement as needed Toxic metabolic encephalopathy, acute Likely a result of the infection Pending urine testing CT head negative for acute findings recurrent reorientation HTN Amlodipin and losartan Dementia Denepezil and Memantin Mood disorder Seroquel, Sertraline DVT PPx Lovenox The patient will likely need 2 overnight hospital stay for treatment of sepsis with IV antibiotics pending final blood culture s and clinical improvement Quality Stroke Does the patient have a stroke diagnosis?: No VTE Prior VTE?: No VTE Risk Level:: Medical - moderate - high VTE Device Contraindication: Treatment Not Indicated VTE Drug Contraindication: N/A - Med Ordered
[2023-11-14 15:45] LABS: Bacteria Urine None Seen (None Seen); Hyaline Casts Urine 0-2 /LPF (0-2); RBC Urine 0-2 /HPF (0-2); Squamous Epithelial Cell Urine 0-2 /HPF (0-2); WBC Urine 0-5 /HPF (0-5)
[2023-11-14] MEDS: Azithromycin 500 MG in 0.9 % Sodium Chloride 250 ML 125 MG IV (16:32)
--- NOTE | 2023-11-14 16:38 | PC.NURSE ---
Pt noted to be more awake and alert, now answering questions. Pt denying any pain or new complaints at this time. Pt medicated per DEC.
--- NOTE | 2023-11-14 17:11 | PC.NURSE ---
Pts daughters number- [phone] Lexy. Would like an update when she gets upstairs.
--- NOTE | 2023-11-14 18:11 | PHA.MEDREC ---
Pharmacy Consult ? Medication Reconciliation Pharmacy has completed the medication reconciliation. Spoke to pt's daughter Lexy to confirm meds. ([phone])
[2023-11-14] MEDS: 0.9 % Sodium Chloride 1,000 ML 75 ML IVCONT (18:47)
[2023-11-14] MEDS: Enoxaparin Sodium 40 MG/0.4 ML SYRINGE SUBCUT (18:49)
[2023-11-14] MEDS: 0.9 % Sodium Chloride Flush 3 ML SYRINGE IVFLUSH (18:50)
[2023-11-15] MEDS: Acetaminophen 325 MG TABLET 650 MG PO ×2 (00:18→15:38)
[2023-11-15 03:42] VITALS: BP 142/65; PULSE 68; RESP 18; TEMP 36.3; O2SAT 95
[2023-11-15 06:28] LABS: Hematocrit 29.8 % (37.0-47.0); Hemoglobin 10.1 g/dl (12.0-16.0); Mean Corpuscular HGB Conc 33.9 g/dl (31.0-35.0); Mean Corpuscular Hemoglobin 31.9 pg (27.0-33.0); Mean Platelet Volume 10.8 fL (9.4-12.3); Platelet Count 144 X10*3/uL (160-400); Red Blood Count 3.17 X10*6/uL (4.20-5.50); Red Cell Distribution Width 14.5 % (11.0-16.0); White Blood Count 9.1 X10*3/uL (4.8-10.8)
[2023-11-15 06:41] LABS: Anion Gap 12 (12-20); Blood Urea Nitrogen 20 mg/dL (9-16); Calcium 8.3 mg/dL (8.4-10.2); Carbon Dioxide 25 mmol/L (22-29); Chloride 109 mmol/L (96-108); Estimated Glomerular Filt Rate > 60; Glucose Random 86 mg/dL (60-115); Potassium 2.9 mmol/L (3.3-5.1); Sodium 143 mmol/L (135-145)
[2023-11-15 07:11] VITALS: BP 164/73; PULSE 69; RESP 18; TEMP 36.7; O2SAT 96
[2023-11-15] MEDS: Potassium Chloride Packet 20 MEQ PACKET 40 MEQ PO ×2 (07:32→08:26)
[2023-11-15] MEDS: 0.9 % Sodium Chloride Flush 3 ML SYRINGE IVFLUSH ×2 (07:33→21:00)
--- NOTE | 2023-11-15 09:47 | HO.PM.IMPN ---
Subjective Subjective Date of Service: 11/15/23 Interval History: Seen and evaluated this morning confused about when and where low K 2.9 on room air no reported ovenright events Review of Systems Review of Systems: Yes all other systems are reviewed and are negative Physical Exam Vital Signs: Vital Signs: Last Vital Signs Temp 98.1 F 11/15/23 07:11 Pulse 69 11/15/23 07:11 Resp 18 11/15/23 07:11 BP 164/73 H 11/15/23 07:11 Pulse Ox 96 11/15/23 07:11 O2 Del Method Room Air 11/15/23 07:11 O2 Flow Rate 2 11/14/23 18:37 Oxygen Flow Rate 2 11/14/23 13:31 BMI result Body Mass Index 32.2 Const: Other: Constitutional : lethargic and frail, not in distress Neck : Normal inspection, Supple Cardiovascular : RRR, no JVP, no lower extremity edema Respiratory : good bilateral air entry, no crackles, wheezes or rhonchi Gastrointestinal: soft, lax, Normal bowel sounds, Non tender Skin : Warm, Dry Neurological : Alert with stimulation & oriented to self only otherwise confused, No focal deficit Objective Data Active Medications Acetaminophen (Acetaminophen 325 Mg Tablet) 650 mg PO Q6H PRN PRN Reason: Pain, Mild (Pain Scale 1-3) Last Admin: 11/15/23 00:18 Dose: 650 mg Documented By: PASQUALE Enoxaparin Sodium (Enoxaparin Sodium 40 Mg/0.4 Ml Syringe) 40 mg SUBCUT Q24H [facility] Last Admin: 11/14/23 18:49 Dose: 40 mg Documented By: COTY Ceftriaxone Sodium 1 gm/ (Sodium Chloride) 50 mls @ 100 mls/hr IV Q24H [facility] Azithromycin 500 mg/ Sodium (Chloride) 250 mls @ 125 mls/hr IV Q24H [facility] Last Infusion: 11/14/23 18:44 Dose: Infused Documented By: COTY Ondansetron HCl (Ondansetron Hcl 4 Mg/2 Ml Vial) 4 mg IVPUSH Q8H PRN PRN Reason: Nausea and Vomiting Sodium Chloride (0.9 % Sodium Chloride Flush 3 Ml Syringe) 3 ml IVFLUSH QSHIFT [facility] Last Admin: 11/15/23 07:33 Dose: 3 ml Documented By: ELIZABETH Labs 11/15/23 05:22 11/15/23 05:22 Labs: Laboratory Results - last 24 hr 11/14/23 11/14/23 11/14/23 13:52 13:56 13:58 MCV 91.9 MCH 31.5 MCHC 34.3 RDW 14.5 Plt Count 166 D MPV 10.3 Immature Gran % (Auto) 0.3 Neut % (Auto) 77.3 H Lymph % (Auto) 10.0 L Spink % (Auto) 12.0 H Eos % (Auto) 0.1 Baso % (Auto) 0.3 Lymph # (Auto) 1.2 Spink # (Auto) 1.4 H Eos # (Auto) 0.0 Baso # (Auto) 0.0 Abs Immat Gran (auto) 0.04 H Absolute Neuts (auto) 9.1 H Absolute Nucleated RBC 0.000 Nucleated RBC % (auto) 0.0 VBG pH 7.45 H VBG pCO2 44 VBG pO2 38 VBG HCO3 30 H VBG O2 Saturation 63.0 VBG Base Excess 6.3 Anion Gap 11 L Estim Creat Clear Calc 53.6 Estimated GFR > 60 Random Glucose 109 Lactic Acid 1.2 Calcium 8.6 D Magnesium 2.1 Total Bilirubin 1.2 H Direct Bilirubin 0.3 AST 24 ALT 11 Alkaline Phosphatase 53 Ammonia Total Protein 6.7 Albumin 3.5 Procalcitonin 0.09 Urine Color Urine Appearance Urine pH Ur Specific [place] Urine Protein Urine Glucose (UA) Urine Ketones Urine Blood Urine Nitrite Ur Leukocyte Esterase Urine RBC Urine WBC Ur Squamous Epith Cells Urine Bacteria Hyaline Casts Valproic Acid COVID-19 (EDU) Negative COVID-19 Clin Com See Note Influenza Type A ([facility]) Negative Influenza Type B ([facility]) Negative Influenza A & B Note See Note 11/14/23 11/14/23 11/14/23 14:34 14:57 15:37 MCV MCH MCHC RDW Plt Count MPV Immature Gran % (Auto) Neut % (Auto) Lymph % (Auto) [place] % (Auto) Eos % (Auto) Baso % (Auto) Lymph # (Auto) Spink # (Auto) Eos # (Auto) Baso # (Auto) Abs Immat Gran (auto) Absolute Neuts (auto) Absolute Nucleated RBC Nucleated RBC % (auto) VBG pH VBG pCO2 VBG pO2 VBG HCO3 VBG O2 Saturation VBG Base Excess Anion Gap Estim Creat Clear Calc Estimated GFR Random Glucose Lactic Acid Calcium Magnesium Total Bilirubin Direct Bilirubin AST ALT Alkaline Phosphatase Ammonia 19 Total Protein Albumin Procalcitonin Urine Color Dark Yellow Urine Appearance Clear Urine pH 6.5 Ur Specific [place] >= 1.030 H Urine Protein 30 (1+) H Urine Glucose (UA) Negative Urine Ketones 15 Urine Blood Negative Urine Nitrite Negative Ur Leukocyte Esterase Negative Urine RBC 0-2 Urine WBC 0-5 Ur Squamous Epith Cells 0-2 Urine Bacteria None Seen Hyaline Casts 0-2 Valproic Acid 35.9 L COVID-19 (EDU) COVID-19 Clin Com Influenza Type A ([facility]) Influenza Type B ([facility]) Influenza A & B Note 11/15/23 05:22 MCV 94.0 MCH 31.9 MCHC 33.9 RDW 14.5 Plt Count 144 L MPV 10.8 Immature Gran % (Auto) Neut % (Auto) Lymph % (Auto) [place] % (Auto) Eos % (Auto) Baso % (Auto) Lymph # (Auto) [place] # (Auto) Eos # (Auto) Baso # (Auto) Abs Immat Gran (auto) Absolute Neuts (auto) Absolute Nucleated RBC 0.000 Nucleated RBC % (auto) 0.0 VBG pH VBG pCO2 VBG pO2 VBG HCO3 VBG O2 Saturation VBG Base Excess Anion Gap 12 Estim Creat Clear Calc 63.0 Estimated GFR > 60 Random Glucose 86 Lactic Acid Calcium 8.3 L Magnesium Total Bilirubin Direct Bilirubin AST ALT Alkaline Phosphatase Ammonia Total Protein Albumin Procalcitonin Urine Color Urine Appearance Urine pH Ur Specific [place] Urine Protein Urine Glucose (UA) Urine Ketones Urine Blood Urine Nitrite Ur Leukocyte Esterase Urine RBC Urine WBC Ur Squamous Epith Cells Urine Bacteria Hyaline Casts Valproic Acid COVID-19 (EDU) COVID-19 Clin Com Influenza Type A ([facility]) Influenza Type B ([facility]) Influenza A & B Note Assessment and Plan (1) Sepsis: Status: Acute (2) Pneumonia: Status: Acute (3) Acute encephalopathy: Status: Acute Plan An 88 years old lady with PMH of HTN, dementia, depression, asthma among others who presents to the hospital with altered mentation, lethargy and weakness for 2 days. Sepsis 2/2 Pneumonia Has Leukocytosis, tachycardia and tachypnea CXR showing RUL infiltrates; concerning for possible underlying mass ? to repeat CXR in few weeks Pending cultures Start Azithromycin and Ceftriaxone O2 supplement as needed Toxic metabolic encephalopathy, acute Likely a result of the infection and advanced dementia Pending urine testing CT head negative for acute findings recurrent reorientation HTN Amlodipin and losartan Dementia Denepezil and Memantin Mood disorder Seroquel, Sertraline DVT PPx Lovenox The patient will likely need overnight hospital stay for treatment of sepsis with IV antibiotics pending final blood cultures and clinical improvement Quality Stroke Does the patient have a stroke diagnosis?: No VTE Prior VTE?: No VTE Risk Level:: Medical - moderate - high VTE Device Contraindication: Treatment Not Indicated VTE Drug Contraindication: N/A - Med Ordered
[2023-11-15] MEDS: Sertraline HCL 50 MG TABLET 150 MG PO (10:04)
[2023-11-15] MEDS: Metoprolol Tartrate 50 MG TABLET PO ×2 (10:04→20:56)
[2023-11-15] MEDS: Levothyroxine Sodium 112 MCG TABLET PO (10:04)
[2023-11-15] MEDS: QUEtiapine Fumarate 50 MG TABLET PO ×2 (10:04→20:56)
[2023-11-15] MEDS: Losartan Potassium 50 MG TABLET 100 MG PO (10:04)
[2023-11-15] MEDS: Divalproex Sodium 250 MG TABLET.DR PO ×2 (10:04→20:56)
--- NOTE | 2023-11-15 12:06 | PC.NURSE ---
Pt drowsy but arousable. Assisted OOB with 2 assist. Pt ambulated to BR but has weakness. Sat up in recliner for a couple hours, now BTB.
[2023-11-15] MEDS: Butalb/Acetamin/Caff 50/325/40 TABLET 1 TAB PO (13:11)
[2023-11-15] MEDS: cefTRIAXone sodium 1 GM in 0.9 % Sodium Chloride 50 ML IV (14:30)
[2023-11-15] MEDS: Azithromycin 500 MG in 0.9 % Sodium Chloride 250 ML 125 MG IV (15:17)
[2023-11-15 15:36] VITALS: BP 112/53; PULSE 67; RESP 16; TEMP 36.7; O2SAT 93
[2023-11-15] MEDS: Omeprazole 20 MG CAPSULE.DR PO (15:38)
[2023-11-15] MEDS: Enoxaparin Sodium 40 MG/0.4 ML SYRINGE SUBCUT (15:38)
[2023-11-15 15:55] VITALS: BP 130/62
--- NOTE | 2023-11-15 16:20 | MHC.CM.PN ---
CM CALLED PTS DAUGHTER/HCP, LETITIA OLIVARES [phone] SHE REPORTS THE PT LIVES AT HOME WITH HER AND HAS DAILY CHILD PSYCHOMETRIST SERVICES LETITIA REPORTS HER IS THE PTS CHILD PSYCHOMETRIST LETITIA REPORTS OTHER THAN DAILY CHILD PSYCHOMETRIST SERVICES, THEY HAVE [employer] IN THE HOME SO THEY CAN CHECK IN PT USES A CANE ONLY WHEN GOING OUT, UNLESS SHE IS NOT FEELING WELL HCP AND POA ON FILE PCP: JOSSELYN CHOI IMM DELIVERED DCP: HOME, RESUME CHILD PSYCHOMETRIST DAUGHTER OR SON IN LAW TO TRANSPORT
[2023-11-15 19:20] VITALS: BP 135/61; PULSE 66; RESP 18; TEMP 36.9; O2SAT 93
[2023-11-15] MEDS: amLODIPine Besylate 5 MG TABLET PO (20:56)
[2023-11-15] MEDS: Donepezil HCl 10 MG TABLET PO (20:56)
[2023-11-15] MEDS: QUEtiapine Fumarate 100 MG TABLET PO (20:56)
[2023-11-15] MEDS: Memantine HCl 10 MG TABLET PO (20:56)
[2023-11-15] MEDS: rOPINIRole HCL 1 MG TABLET PO (20:56)
[2023-11-16 03:13] VITALS: BP 166/72; PULSE 65; RESP 18; TEMP 36.3; O2SAT 92
[2023-11-16] MEDS: Omeprazole 20 MG CAPSULE.DR PO ×2 (05:51→15:31)
[2023-11-16] MEDS: Levothyroxine Sodium 112 MCG TABLET PO (05:51)
[2023-11-16 07:33] VITALS: BP 161/70; PULSE 62; RESP 17; TEMP 37.4; O2SAT 93
[2023-11-16 07:59] VITALS: BP 161/70; PULSE 62; O2SAT 93
[2023-11-16] MEDS: 0.9 % Sodium Chloride Flush 3 ML SYRINGE IVFLUSH ×3 (08:26→20:02)
[2023-11-16] MEDS: Memantine HCl 10 MG TABLET PO ×2 (09:05→20:02)
[2023-11-16] MEDS: Divalproex Sodium 250 MG TABLET.DR PO ×2 (09:05→20:02)
[2023-11-16] MEDS: Sertraline HCL 50 MG TABLET 150 MG PO (09:05)
[2023-11-16] MEDS: Metoprolol Tartrate 50 MG TABLET PO ×2 (09:05→20:02)
[2023-11-16] MEDS: QUEtiapine Fumarate 50 MG TABLET PO ×2 (09:06→20:02)
[2023-11-16] MEDS: Losartan Potassium 50 MG TABLET 100 MG PO (09:06)
[2023-11-16] MEDS: Cholecalciferol (Vitamin D3) 25 MCG TABLET PO (09:06)
[2023-11-16] MEDS: Multivitamin TABLET 1 TAB PO (09:06)
[2023-11-16] MEDS: Atorvastatin Calcium 10 MG TABLET PO (09:06)
[2023-11-16 10:14] LABS: Anion Gap 11 (12-20); Blood Urea Nitrogen 16 mg/dL (9-16); Calcium 8.7 mg/dL (8.4-10.2); Carbon Dioxide 26 mmol/L (22-29); Chloride 106 mmol/L (96-108); Creatinine Clr Calc Pharmacy 65.8; Estimated Glomerular Filt Rate > 60; Glucose Random 125 mg/dL (60-115); Potassium 3.7 mmol/L (3.3-5.1); Sodium 139 mmol/L (135-145)
--- NOTE | 2023-11-16 11:57 | P.PNIM_ITS ---
Subjective Subjective Date of Service: 11/16/23 Interval History: Seen and evaluated this morning confused about when and where on room air no reported ovenright events Review of Systems Review of Systems: Yes all other systems are reviewed and are negative Physical Exam 2 Vital Signs: Vital Signs: Last Vital Signs Temp 99.3 F 11/16/23 07:33 Pulse 62 11/16/23 07:33 Resp 17 11/16/23 07:33 BP 161/70 H 11/16/23 07:33 Pulse Ox 93 11/16/23 07:33 O2 Del Method Room Air 11/16/23 07:33 O2 Flow Rate 2 11/14/23 18:37 Oxygen Flow Rate 2 11/14/23 13:31 BMI result Body Mass Index 32.2 Const: Other: Constitutional : lethargic and frail, not in distress Neck : Normal inspection, Supple Cardiovascular : RRR, no JVP, no lower extremity edema Respiratory : good bilateral air entry, no crackles, wheezes or rhonchi Gastrointestinal: soft, lax, Normal bowel sounds, Non tender Skin : Warm, Dry Neurological : Alert with stimulation & oriented to self only otherwise confused, No focal deficit Objective Data Active Medications Acetaminophen (Acetaminophen 325 Mg Tablet) 650 mg PO Q6H PRN PRN Reason: Pain, Mild (Pain Scale 1-3) Last Admin: 11/15/23 15:38 Dose: 650 mg Documented By: ELIZABETH Acetaminophen/Butalbital/Caffeine (Butalb/Acetamin/Caff 50/325/40 Tablet) 1 tab PO BID PRN PRN Reason: Migraine Headache Last Admin: 11/15/23 13:11 Dose: 1 tab Documented By: ELIZABETH Amlodipine Besylate (Amlodipine Besylate 5 Mg Tablet) 5 mg PO BEDTIME [facility]; Protocol Last Admin: 11/15/23 20:56 Dose: 5 mg Documented By: UMESH Atorvastatin Calcium (Atorvastatin Calcium 10 Mg Tablet) 10 mg PO DAILY [facility] Last Admin: 11/16/23 09:06 Dose: 10 mg Documented By: HIEU Divalproex Sodium (Divalproex Sodium 250 Mg Tablet.) 250 mg PO BID [facility] Last Admin: 11/16/23 09:05 Dose: 250 mg Documented By: HIEU Donepezil HCl (Donepezil Hcl 10 Mg Tablet) 10 mg PO BEDTIME [facility] Last Admin: 11/15/23 20:56 Dose: 10 mg Documented By: UMESH Enoxaparin Sodium (Enoxaparin Sodium 40 Mg/0.4 Ml Syringe) 40 mg SUBCUT Q24H [facility] Last Admin: 11/15/23 15:38 Dose: 40 mg Documented By: ELIZABETH Ceftriaxone Sodium 1 gm/ (Sodium Chloride) 50 mls @ 100 mls/hr IV Q24H [facility] Last Infusion: 11/15/23 15:11 Dose: Infused Documented By: ELIZABETH Azithromycin 500 mg/ Sodium (Chloride) 250 mls @ 125 mls/hr IV Q24H [facility] Last Infusion: 11/15/23 18:45 Dose: Infused Documented By: UMESH Levothyroxine Sodium (Levothyroxine Sodium 112 Mcg Tablet) 112 mcg PO DAILY@0600 [facility] Last Admin: 11/16/23 05:51 Dose: 112 mcg Documented By: UMESH Losartan Potassium (Losartan Potassium 50 Mg Tablet) 100 mg PO DAILY [facility]; Protocol Last Admin: 11/16/23 09:06 Dose: 100 mg Documented By: HIEU Memantine (Memantine Hcl 10 Mg Tablet) 10 mg PO BID [facility] Last Admin: 11/16/23 09:05 Dose: 10 mg Documented By: HIEU Metoprolol Tartrate (Metoprolol Tartrate 50 Mg Tablet) 50 mg PO BID [facility]; Protocol Last Admin: 11/16/23 09:05 Dose: 50 mg Documented By: HIEU Multivitamins/Vitamin C (Multivitamin Tablet) 1 tab PO DAILY [facility] Last Admin: 11/16/23 09:06 Dose: 1 tab Documented By: HIEU Omeprazole (Omeprazole 20 Mg Capsule.Dr) 20 mg PO BID@0630,1630 [facility] Last Admin: 11/16/23 05:51 Dose: 20 mg Documented By: UMESH Ondansetron HCl (Ondansetron Hcl 4 Mg/2 Ml Vial) 4 mg IVPUSH Q8H PRN PRN Reason: Nausea and Vomiting Quetiapine Fumarate (Quetiapine Fumarate 50 Mg Tablet) 50 mg PO BID [facility] Last Admin: 11/16/23 09:06 Dose: 50 mg Documented By: HIEU Quetiapine Fumarate (Quetiapine Fumarate 100 Mg Tablet) 100 mg PO BEDTIME [facility] Last Admin: 11/15/23 20:56 Dose: 100 mg Documented By: UMESH Ropinirole HCl (Ropinirole Hcl 1 Mg Tablet) 1 mg PO BEDTIME [facility] Last Admin: 11/15/23 20:56 Dose: 1 mg Documented By: UMESH Sertraline HCl (Sertraline Hcl 50 Mg Tablet) 150 mg PO DAILY [facility] Last Admin: 11/16/23 09:05 Dose: 150 mg Documented By: HIEU Sodium Chloride (0.9 % Sodium Chloride Flush 3 Ml Syringe) 3 ml IVFLUSH QSHIFT [facility] Last Admin: 11/16/23 08:26 Dose: 3 ml Documented By: HIEU Vitamin D (Cholecalciferol (Vitamin D3) 25 Mcg Tablet) 25 mcg PO DAILY [facility] Last Admin: 11/16/23 09:06 Dose: 25 mcg Documented By: HIEU Labs 11/15/23 05:22 11/16/23 09:35 Labs: Laboratory Results - last 24 hr 11/16/23 09:35 Anion Gap 11 L Estim Creat Clear Calc 65.8 Estimated GFR > 60 Random Glucose 125 H Calcium 8.7 Microbiology Microbiology Results: Microbiology 11/14/23 14:16 Blood Culture - Preliminary Blood - Venous No growth after 24 hours. 11/14/23 13:53 Blood Culture - Preliminary Blood - Venous No growth after 24 hours. Assessment and Plan (1) Sepsis: Status: Acute (2) Pneumonia: Status: Acute (3) Physical deconditioning: Status: Acute Plan An 88 years old lady with PMH of HTN, dementia, depression, asthma among others who presents to the hospital with altered mentation, lethargy and weakness for 2 days. Sepsis 2/2 Pneumonia Has Leukocytosis, tachycardia and tachypnea CXR showing RUL infiltrates; concerning for possible underlying mass ? to repeat CXR in few weeks Pending cultures continue Azithromycin and Ceftriaxone O2 supplement as needed Toxic metabolic encephalopathy, acute Likely a result of the infection and advanced dementia negative UA CT head negative for acute findings recurrent reorientation PHysical deconditioning PT rec SNF HTN Amlodipin and losartan Dementia Denepezil and Memantin Mood disorder Seroquel, Sertraline DVT PPx Lovenox The patient will likely need overnight hospital stay for treatment of sepsis with IV antibiotics pending final blood cultures and safe discharge plan Quality Stroke Does the patient have a stroke diagnosis?: No VTE Prior VTE?: No VTE Risk Level:: Medical - moderate - high VTE Device Contraindication: Treatment Not Indicated VTE Drug Contraindication: N/A - Med Ordered
[2023-11-16] MEDS: cefTRIAXone sodium 1 GM in 0.9 % Sodium Chloride 50 ML IV (13:09)
--- NOTE | 2023-11-16 13:58 | MHC.CM.PN ---
Addendum entered by Gris Gutierrez 11/16/23 16:12: [facility] UNABLE TO OFFER A BED, [facility] HAS OFFERED A BED FOR 11/17. PATIENT/HCP ACCEPT THE BED. CM WILL F/U IN THE AM Original Note: P.T. REC STR ON DC. PT/FAMILY FIRST CHOICE IS [facility] FOLLOWED BY [facility]RAN, WILL AWAIT RESPONSES.
[2023-11-16 15:27] VITALS: BP 156/67; PULSE 66; RESP 17; TEMP 36.2; O2SAT 94
[2023-11-16] MEDS: Azithromycin 500 MG in 0.9 % Sodium Chloride 250 ML 125 MG IV (15:31)
[2023-11-16] MEDS: Enoxaparin Sodium 40 MG/0.4 ML SYRINGE SUBCUT (15:31)
[2023-11-16 19:15] VITALS: BP 175/77; PULSE 69; RESP 20; TEMP 36.4; O2SAT 96
[2023-11-16] MEDS: amLODIPine Besylate 5 MG TABLET PO (20:02)
[2023-11-16] MEDS: rOPINIRole HCL 1 MG TABLET PO (20:02)
[2023-11-16] MEDS: Donepezil HCl 10 MG TABLET PO (20:02)
[2023-11-16] MEDS: QUEtiapine Fumarate 100 MG TABLET PO (20:02)
[2023-11-17 04:00] VITALS: BP 163/73; PULSE 69; RESP 18; TEMP 36.8; O2SAT 92
[2023-11-17] MEDS: Levothyroxine Sodium 112 MCG TABLET PO (05:50)
[2023-11-17] MEDS: Omeprazole 20 MG CAPSULE.DR PO (05:50)
[2023-11-17 05:52] LABS: Hematocrit 31.6 % (37.0-47.0); Hemoglobin 10.9 g/dl (12.0-16.0); Mean Corpuscular HGB Conc 34.5 g/dl (31.0-35.0); Mean Corpuscular Hemoglobin 31.6 pg (27.0-33.0); Mean Corpuscular Volume 91.6 fL (80.0-98.0); Platelet Count 201 X10*3/uL (160-400); Red Blood Count 3.45 X10*6/uL (4.20-5.50); Red Cell Distribution Width 14.2 % (11.0-16.0); White Blood Count 8.5 X10*3/uL (4.8-10.8)
[2023-11-17 06:04] LABS: Anion Gap 10 (12-20); Blood Urea Nitrogen 8 mg/dL (9-16); Calcium 8.4 mg/dL (8.4-10.2); Carbon Dioxide 29 mmol/L (22-29); Chloride 104 mmol/L (96-108); Creatinine Clr Calc Pharmacy 73.4; Estimated Glomerular Filt Rate > 60; Glucose Random 109 mg/dL (60-115); Potassium 3.4 mmol/L (3.3-5.1); Sodium 140 mmol/L (135-145)
[2023-11-17 07:34] VITALS: BP 156/78; PULSE 72; RESP 20; TEMP 36.6; O2SAT 93
[2023-11-17] MEDS: QUEtiapine Fumarate 50 MG TABLET PO (08:37)
[2023-11-17] MEDS: Atorvastatin Calcium 10 MG TABLET PO (08:37)
[2023-11-17] MEDS: 0.9 % Sodium Chloride Flush 3 ML SYRINGE IVFLUSH (08:37)
[2023-11-17] MEDS: Cholecalciferol (Vitamin D3) 25 MCG TABLET PO (08:37)
[2023-11-17] MEDS: Metoprolol Tartrate 50 MG TABLET PO (08:37)
[2023-11-17] MEDS: Divalproex Sodium 250 MG TABLET.DR PO (08:37)
[2023-11-17] MEDS: Multivitamin TABLET 1 TAB PO (08:38)
[2023-11-17] MEDS: Memantine HCl 10 MG TABLET PO (08:38)
[2023-11-17] MEDS: Sertraline HCL 50 MG TABLET 150 MG PO (08:38)
[2023-11-17] MEDS: Losartan Potassium 50 MG TABLET 100 MG PO (08:38)
--- NOTE | 2023-11-17 09:16 | MHC.CM.PN ---
Per MD patient is medically cleared for DC to [facility]. BLS transportation scheduled for [address] [facility]. Daughter, and RN aware. IMM was delivered 11/15.
--- NOTE | 2023-11-17 09:37 | P.DS_ITS ---
DS: Providers Provider Date of Service: 11/17/23 Date of admission: 11/14/23 15:39 Primary care physician: JIAN Gayle DS: Diagnosis Discharge Diagnosis (1) Sepsis: Status: Acute (2) Pneumonia: Status: Acute (3) Physical deconditioning: Status: Acute DS: Summary Hospital Course Hospital Course: Admission note HPI An 88 years old lady with PMH of HTN, dementia, depression, asthma among others who presents to the hospital with altered mentation, lethargy and weakness for 2 days. The patient is poor historian and could not provide any meaningful story. from ED provider and EMS. She was brought in for increased weakness and lethargy. foul smeeling urine and fell out of bed yesterday. Since her mentation has been worsening. She denies any fever, chills, No chest pain, palpitations, SOB, nausea, vomiting, diarrhea or urinary symptoms. In ED found to have RUL infiltrates on CXR. UA still pending. CT head showing chronic microangiopathy. admitted for further evaluation and management. Hospital course The patient was admitted for treatment of Sepsis secondary to right upper lobe Pneumonia as CXR showing RUL infiltrates; concerning for possible underlying mass ? to repeat CXR in few weeks after finishing treatment. Treated with IV Azithromycin and Ceftriaxone with good response as blood cultures remained negative. O2 supplement weaned down to room air. she was able to participate with PT who recommended short term rehab. She had Toxic metabolic encephalopathy on presentation Likely a result of the infection and advanced dementia that improved back to her baseline during hospital stay as CT head negative for acute findings and will need recurrent reorientation. Continue antibiotics as prescribed To repeat Chest XR in few weeks Increase physical activity as tolerated Time Attestation Discharge coordination time: Greater than 30 minutes Quality: Safe Use of Opioids Does Pt have an Active Cancer Diagnosis on the Problem List?: No Quality: Stroke Does the patient have a stroke diagnosis?: No Physical Exam Vital Signs: Vital Signs: Last Vital Signs Temp 97.8 F 11/17/23 07:34 Pulse 72 11/17/23 07:34 Resp 20 11/17/23 07:34 BP 156/78 H 11/17/23 07:34 Pulse Ox 93 11/17/23 07:34 O2 Del Method Room Air 11/17/23 07:34 O2 Flow Rate 2 11/14/23 18:37 Oxygen Flow Rate 2 11/14/23 13:31 BMI result Body Mass Index 32.2 Const: Other: Constitutional : lethargic and frail, not in distress Neck : Normal inspection, Supple Cardiovascular : RRR, no JVP, no lower extremity edema Respiratory : good bilateral air entry, no crackles, wheezes or rhonchi Gastrointestinal: soft, lax, Normal bowel sounds, Non tender Skin : Warm, Dry Neurological : Alert with stimulation & oriented to self only otherwise confused, No focal deficit DS: Data Data Completed and Pending Labs on day of discharge: Laboratory Results - last 24 hr 11/16/23 11/17/23 09:35 05:37 WBC 8.5 RBC 3.45 L Hgb 10.9 L Hct 31.6 L MCV 91.6 MCH 31.6 MCHC 34.5 RDW 14.2 Plt Count 201 D MPV 10.0 Absolute Nucleated RBC 0.000 Nucleated RBC % (auto) 0.0 Sodium 139 140 Potassium 3.7 D 3.4 Chloride 106 104 Carbon Dioxide 26 29 Anion Gap 11 L 10 L BUN 16 8 L Creatinine 0.67 0.60 Estim Creat Clear Calc 65.8 73.4 Estimated GFR > 60 > 60 Random Glucose 125 H 109 Calcium 8.7 8.4 Preliminary micro results at discharge 11/14/23 14:16 Blood Culture - Preliminary Blood - Venous No growth after 48 hours. 11/14/23 13:53 Blood Culture - Preliminary Blood - Venous No growth after 48 hours. Imaging Chest x-ray: Radiologist's impression: ITS Impressions Chest X-Ray 11/14/23 14:49 IMPRESSION: Right upper lobe airspace opacity suspicious for consolidative pneumonia. Recommend follow-up chest radiographs in 4-6 week to demonstrate full resolution and exclude findings related to underlying neoplasm or earlier shorter term follow-up with CT of the thorax as clinically indicated. Head CT 11/14/23 15:06 IMPRESSION: No acute intracranial pathology. Discharge Plan Discharge Anticipated Discharge Date/Time: 11/17/23 09:34 [facility] Diagnosis: Pneumonia Referrals: Ankur Har[facility] [place] [Outside] - 1 Day (SHORT TERM REHAB) Carlos Caceres PA [Primary Care Provider] - 1 Week Discharge Medications: New azithromycin 500 mg tablet 500 mg PO DAILY 5 Days Qty: 5 0RF cefuroxime axetil 500 mg tablet 500 mg PO BID Qty: 10 0RF Continued multivitamin Tablet 1 tab PO DAILY cholecalciferol (vitamin D3) [Vitamin D3] 25 mcg (1,000 unit) Tablet 25 mcg PO DAILY quetiapine 25 mg tablet 50 mg PO BID divalproex 250 mg Tablet,Delayed Release (Dr/Ec) 250 mg PO BID 30 Days Qty: 60 0RF donepezil 10 mg Tablet 10 mg PO BEDTIME 30 Days Qty: 30 0RF amlodipine 5 mg Tablet 5 mg PO BEDTIME 30 Days Qty: 30 0RF quetiapine 100 mg Tablet 100 mg PO BEDTIME 30 Days Qty: 30 0RF simvastatin 20 mg Tablet 20 mg PO BEDTIME 30 Days Qty: 30 0RF omeprazole 20 mg Capsule,Delayed Release(Dr/Ec) 20 mg PO BID@0630,1630 30 Days Qty: 60 0RF losartan 100 mg Tablet 100 mg PO DAILY 30 Days Qty: 30 0RF memantine 10 mg Tablet 10 mg PO BID 30 Days Qty: 60 0RF meloxicam 15 mg tablet 15 mg PO DAILY PRN (Reason: pain) sertraline 100 mg tablet 150 mg PO DAILY metoprolol tartrate 50 mg tablet 50 mg PO BID levothyroxine 112 mcg tablet 112 mcg PO DAILY@0600 ropinirole 0.5 mg tablet 1 mg PO BEDTIME [id number] 50-300-40 mg capsule 1 cap PO BID PRN (Reason: Migraine Headache) melatonin 10 mg Tablet 10 mg PO BEDTIME Discharge Orders: Discharge Order (Routine); Ordered 11/17/23 Ordered By: Markus Proctor Diet: Advance to usual diet Activity on Discharge: As tolerated Stand Alone Forms: Patient Portal Discharge page Other Ambulatory Orders: XR chest 2V (Routine) Timeframe: 3 Weeks Facility: [facility] - Location: Radiology Ordered By: Markus Proctor Care Plan Goals: Read below Health Concerns: Read below Plan of Treatment: Read below Assessment: Continue antibiotics as prescribed To repeat Chest XR in few weeks Increase physical activity as tolerated
== END 2023-11-17 11:36 | disposition skilled nursing facility (03) | DRG 871 ==
LOC: HO.ED 15:48 → HO.EDOVER 16:06 → HO.S3 16:34
PROVIDERS: Admitting Provider Student in an Organized Health Care Education/Training Program; Emergency Provider Emergency Medicine; PCP Physician Assistant Medical; Visit Provider Student in an Organized Health Care Education/Training Program
DX: A41.9 Sepsis, unspecified organism (principal); G92.8 Other toxic encephalopathy; J18.9 Pneumonia, unspecified organism; F03.90 Unspecified dementia, unspecified severity, without behavioral disturbance, psychotic disturbance, mood disturbance, and anxiety; E03.9 Hypothyroidism, unspecified; J98.4 Other disorders of lung; I10 Essential (primary) hypertension; F39 Unspecified mood [affective] disorder; Z20.822 Contact with and (suspected) exposure to COVID-19; Z88.0 Allergy status to penicillin; Z79.890 Hormone replacement therapy; Z79.899 Other long term (current) drug therapy
CPT/HCPCS: 36415; 70450; 71045; 80048; 80076; 80164; 81001; 82140; 82803; 83605; 83735; 84145; 84484; 85025; 85027; 87040; 87502; 87635; 93005; 97161; 99285; J0456; J0696; J1650

== ENCOUNTER → 2023-11-14 13:28 | Outpatient (BNV) | payer MEDICARE, OTHER, SELFPAY | PROVIDERS: Admitting Provider Student in an Organized Health Care Education/Training Program; Emergency Provider Emergency Medicine; Visit Provider Internal Medicine | DX: M62.81 Muscle weakness (generalized) (principal); R94.31 Abnormal electrocardiogram [ECG] [EKG] | CPT/HCPCS: 93010 ==

== ENCOUNTER → 2023-11-14 13:44 | Outpatient (BNV) | payer MEDICARE, OTHER, SELFPAY | PROVIDERS: Emergency Provider Emergency Medicine; Visit Provider Student in an Organized Health Care Education/Training Program | DX: A41.9 Sepsis, unspecified organism (principal); J18.9 Pneumonia, unspecified organism; R53.81 Other malaise; G92.8 Other toxic encephalopathy | CPT/HCPCS: 99223; 99232; 99238 ==

== ENCOUNTER 2023-11-26 13:06 | Emergency (ER) | payer MEDICARE, OTHER, MEDICAID, SELFPAY ==
--- NOTE | ~2023-11-26 | XR_ITS ---
EXAMINATION: XR CHEST CLINICAL INFORMATION: Pneumonia and lethargic COMPARISON: 11/14/2023 TECHNIQUE: Frontal view of the chest was obtained. FINDINGS: Improved aeration in the right upper lobe with minor chronic fibrotic changes at the bases. There has been almost complete resolution of the previously noted focal airspace opacity. Heart borderline size with left ventricular prominence of the pulmonary vessels are of normal caliber. XR/XR chest 1V IMPRESSION: Interval improvement.
--- NOTE | 2023-11-26 13:10 | ED.AMS ---
HPI - Altered Mental Status General Chief Complaint: Weakness Stated Complaint: WARM,WEAK,RECENT PNA PER EMS Source: EMS Mode of arrival: EMS Limitations: altered mental status History of Present Illness HPI narrative: recent pneumonia supposedly finished her abx but now with warmth and increasing lethargy MD complaint: altered mental status, confusion and decreased responsiveness Related Data Home Medications Medication Instructions Recorded Confirmed cholecalciferol (vitamin D3) 25 25 mcg PO DAILY 09/25/20 11/14/23 mcg (1,000 unit) tablet (Vitamin D3) multivitamin 1 tab PO DAILY 09/25/20 11/14/23 quetiapine 25 mg tablet 50 mg PO BID 05/30/22 11/14/23 ebemoddbrw-vsheuywpujobe-gudqpdbs 1 cap PO BID PRN Migraine Headache 11/14/23 11/14/23 50 mg-300 mg-40 mg capsule levothyroxine 112 mcg tablet 112 mcg PO DAILY@0600 11/14/23 11/14/23 melatonin 10 mg tablet 10 mg PO BEDTIME 11/14/23 11/14/23 meloxicam 15 mg tablet 15 mg PO DAILY PRN pain 11/14/23 11/14/23 metoprolol tartrate 50 mg tablet 50 mg PO BID 11/14/23 11/14/23 ropinirole 0.5 mg tablet 1 mg PO BEDTIME 11/14/23 11/14/23 sertraline 100 mg tablet 150 mg PO DAILY 11/14/23 11/14/23 Previous Rx's Medication Instructions Recorded amlodipine 5 mg tablet 5 mg PO BEDTIME 30 days #30 tabs 08/12/21 divalproex 250 mg tablet,delayed 250 mg PO BID 30 days #60 tabs 08/12/21 release donepezil 10 mg tablet 10 mg PO BEDTIME 30 days #30 tabs 08/12/21 losartan 100 mg tablet 100 mg PO DAILY 30 days #30 tabs 08/12/21 memantine 10 mg tablet 10 mg PO BID 30 days #60 tabs 08/12/21 omeprazole 20 mg capsule,delayed 20 mg PO BID@0630,1630 30 days #60 08/12/21 release caps quetiapine 100 mg tablet 100 mg PO BEDTIME 30 days #30 tabs 08/12/21 simvastatin 20 mg tablet 20 mg PO BEDTIME 30 days #30 tabs 08/12/21 azithromycin 500 mg tablet 500 mg PO DAILY 5 days #5 tabs 11/17/23 cefuroxime axetil 500 mg tablet 500 mg PO BID #10 tabs 11/17/23 Allergies Allergy/AdvReac Type Severity Reaction Status Date / Time Penicillins [PENICILLINS] Allergy Intermediate Headache Verified 08/03/21 20:30 penicillin V Allergy Unknown swelling Verified 10/20/18 00:00 procaine [From NOVOCAIN] Allergy Unknown Headache Verified 08/03/21 20:30 Review of Systems Review of Systems: Yes Unobtainable due to mental status [facility] Past Medical History Medical History Hypothyroidism RLS (restless legs syndrome) GERD (gastroesophageal reflux disease) High cholesterol Hypertension Mood disorder Anxiety Dementia Social History Social History Household Members: Family Household Members Other:: 2 Housing: House Do you presently have visiting nurse or other home services: No Alcohol intake: unknown Comment: pt pulled out the left AC IV, camera in place/confusion Patient Tobacco Use Status: Never used Tobacco Smoked in Last 30 Days: No Use of substances other than those prescribed or required for medical reasons: No Advance Directives: Yes Advance Directives on File: Yes Advance Directives Date on File: 08/15/21 service: No Current occupational status: retired Sexual orientation: Straight/Heterosexual Physical Exam ED Vital Signs: Vital Signs - 24 hr 11/26/23 13:41 11/26/23 15:59 11/26/23 17:37 Temperature 98.5 F 98.0 F Pulse Rate 59 63 61 Respiratory Rate 15 16 18 Blood Pressure 125/41 L 148/55 H Pulse Oximetry 92 89 L Oxygen Delivery Method Room Air Room Air 11/26/23 17:54 Temperature 99 F Pulse Rate 64 Respiratory Rate 15 Blood Pressure 132/46 L Pulse Oximetry 92 Oxygen Delivery Method Room Air BMI result Body Mass Index 35.2 Const Other: Elderly female difficult to arouse Nutritional Appearance: average body habitus Limitations: altered mental status HENMT Head: Yes normal to inspection Ears: external ears normal General nose exam: Normal external nose present Mouth: Normal oral and palatal mucosa present and oropharynx normal Throat: Yes posterior oropharynx normal Eyes General: appearance normal, both eyes and all related structures Neck Neck: Yes normal visual inspection Chest Chest palpation & inspection: normal inspection of the chest Resp Other: slight diffuse wheeze Cardio Jugular venous distension: no JVD Rate: regular rate Rhythm: regular rhythm Heart sounds: S1 normal heart sound present and S2 normal heart sound present GI Inspection: Yes normal to inspection Palpation (GI): Soft to palpation, nontender and No hepatosplenomegaly present Auscultation: normal bowel sounds General: Yes no CVA tenderness Back/Spine/Pelvis Back: no CVA tenderness Skin General skin exam: no rashes or lesions noted Neuro Other: moves all extremities to noxious stimuli Extrem General: Yes normal to inspection Psych Other: lethargy Course Reevaluation(s) Reevaluation #1: Patient more awake but family feels that the patient is too weak to go home Time: 21:03 Reevaluation #2: at this time patient placed in physician observation: she is more arousible but patient will be observed to see if she will improve or need to be placed Time: 21:10 Medications Administered Generic Name Dose Route Start Last Admin Trade Name Freq PRN Reason Stop Dose Admin Sodium Chloride 1,000 mls @ 125 mls/hr 11/26/23 13:15 11/26/23 15:50 Ns IVCONT 125 mls/hr .Q8H DENIS Administration Discontinued Medications Generic Name Dose Route Start Last Admin Trade Name Freq PRN Reason Stop Dose Admin Albuterol/Ipratropium 3 ml 11/26/23 17:22 11/26/23 17:36 Albuterol/Iprat 2.5/0.5mg 3 Ml Ampul.Neb INHALE 11/26/23 17:23 3 ml ONCE ONE Administration Medical Decision Making Differential Diagnosis Differential Diagnoses: The differential diagnosis associated with the presentation includes (pneumonia, UTI, over medication, electrolyte abnormalities were all considered) Admission/Observation Consideration of admission/observation: Escalation of care including admission/observation considered (upon arrival patient considered for admission) Lab Data 11/26/23 14:25 11/26/23 14:25 Labs: Lab Results 11/26/23 11/26/23 11/26/23 Range/Units 14:24 14:25 14:29 WBC 6.2 (4.8-10.8) X10*3/uL RBC 3.34 L (4.20-5.50) X10*6/uL Hgb 10.5 L (12.0-16.0) g/dl Hct 31.8 L (37.0-47.0) % MCV 95.2 (80.0-98.0) fL MCH 31.4 (27.0-33.0) pg MCHC 33.0 (31.0-35.0) g/dl RDW 15.3 (11.0-16.0) % Plt Count 252 D (160-400) X10*3/uL MPV 9.0 L (9.4-12.3) fL Immature Gran % (Auto) 0.5 H (0.0-0.4) % Neut % (Auto) 72.6 (45-73) % Lymph % (Auto) 16.2 L (20-40) % [place] % (Auto) 10.2 (2-11) % Eos % (Auto) 0.2 (0-4) % Baso % (Auto) 0.3 (0-2) % Lymph # (Auto) 1.0 L (1.2-4.9) X10*3/uL [place] # (Auto) 0.6 (0.1-1.2) X10*3/uL Eos # (Auto) 0.0 (0.0-0.4) X10*3/uL Baso # (Auto) 0.0 (0.0-0.2) X10*3/uL Abs Immat Gran (auto) 0.03 (0.00-0.03) X10*3/uL Absolute Neuts (auto) 4.5 (2.0-8.3) x10*3/uL Absolute Nucleated RBC 0.000 (0.0-0.012) X10*3/uL Nucleated RBC % (auto) 0.0 (0.0-0.2) /100WBC VBG pH 7.37 (7.32-7.43) VBG pCO2 52 mmHg VBG pO2 32 mmHg VBG HCO3 30 H (22-26) mmol/L VBG O2 Saturation 44.0 % VBG Base Excess 4.1 mmol/L Sodium 141 (135-145) mmol/L Potassium 3.4 (3.3-5.1) mmol/L Chloride 105 (96-108) mmol/L Carbon Dioxide 28 (22-29) mmol/L Anion Gap 11 L (12-20) BUN 15 (9-16) mg/dL Creatinine 0.72 (0.5-1.4) mg/dL Estim Creat Clear Calc 57.5 Estimated GFR > 60 Random Glucose 79 (60-115) mg/dL Calcium 8.3 L (8.4-10.2) mg/dL Total Bilirubin 0.5 (0.0-1.0) mg/dL AST 18 (5-31) U/L ALT 15 (0-31) U/L Alkaline Phosphatase 71 (39-117) U/L Troponin I High Sens 14.5 (<3.5-17.0) ng/L Total Protein 6.2 L (6.5-8.0) g/dL Albumin 3.2 L (3.5-5.0) g/dL Urine Color Urine Appearance Urine pH (5.0-9.0) Ur Specific [place] (1.005-1.025) Urine Protein (Neg-Trace) mg/dL Urine Glucose (UA) (Negative) mg/dL Urine Ketones (Negative) mg/dL Urine Blood (Negative) Urine Nitrite (Negative) Ur Leukocyte Esterase (Negative) 11/26/23 Range/Units 20:51 WBC (4.8-10.8) X10*3/uL RBC (4.20-5.50) X10*6/uL Hgb (12.0-16.0) g/dl Hct (37.0-47.0) % MCV (80.0-98.0) fL MCH (27.0-33.0) pg MCHC (31.0-35.0) g/dl RDW (11.0-16.0) % Plt Count (160-400) X10*3/uL MPV (9.4-12.3) fL Immature Gran % (Auto) (0.0-0.4) % Neut % (Auto) (45-73) % Lymph % (Auto) (20-40) % [place] % (Auto) (2-11) % Eos % (Auto) (0-4) % Baso % (Auto) (0-2) % Lymph # (Auto) (1.2-4.9) X10*3/uL [place] # (Auto) (0.1-1.2) X10*3/uL Eos # (Auto) (0.0-0.4) X10*3/uL Baso # (Auto) (0.0-0.2) X10*3/uL Abs Immat Gran (auto) (0.00-0.03) X10*3/uL Absolute Neuts (auto) (2.0-8.3) x10*3/uL Absolute Nucleated RBC (0.0-0.012) X10*3/uL Nucleated RBC % (auto) (0.0-0.2) /100WBC VBG pH (7.32-7.43) VBG pCO2 mmHg VBG pO2 mmHg VBG HCO3 (22-26) mmol/L VBG O2 Saturation % VBG Base Excess mmol/L Sodium (135-145) mmol/L Potassium (3.3-5.1) mmol/L Chloride (96-108) mmol/L Carbon Dioxide (22-29) mmol/L Anion Gap (12-20) BUN (9-16) mg/dL Creatinine (0.5-1.4) mg/dL Estim Creat Clear Calc Estimated GFR Random Glucose (60-115) mg/dL Calcium (8.4-10.2) mg/dL Total Bilirubin (0.0-1.0) mg/dL AST (5-31) U/L ALT (0-31) U/L Alkaline Phosphatase (39-117) U/L Troponin I High Sens (<3.5-17.0) ng/L Total Protein (6.5-8.0) g/dL Albumin (3.5-5.0) g/dL Urine Color Dark Yellow Urine Appearance Clear Urine pH 6.0 (5.0-9.0) Ur Specific [place] 1.025 (1.005-1.025) Urine Protein Trace (Neg-Trace) mg/dL Urine Glucose (UA) Negative (Negative) mg/dL Urine Ketones 15 (Negative) mg/dL Urine Blood Negative (Negative) Urine Nitrite Negative (Negative) Ur Leukocyte Esterase Negative (Negative) Independent Interpretation I performed an independent interpretation of an: EKG (sinus 60, old inferior wall VT, no acute st or twave changes) and Plain X-Ray (CXR no infiltrate) Independent Historian Clinical information obtained from an independent historian. History obtained from or confirmed by: EMS and Other (daughter) External Record Review External record reviewed: Outpatient record and Prior outpatient radiology Tests considered The following testing was considered but not selected: Head cT was considered for lethargy but patient now arousible Chronic Conditions Patient?s care impacted by: Other (dementia) Discharge Plan Discharge Clinical Impression: Lethargic, Weakness Patient Disposition: Still a Patient Prescriptions: No Action multivitamin Tablet 1 tab PO DAILY cholecalciferol (vitamin D3) [Vitamin D3] 25 mcg (1,000 unit) Tablet 25 mcg PO DAILY quetiapine 25 mg tablet 50 mg PO BID divalproex 250 mg Tablet,Delayed Release (Dr/Ec) 250 mg PO BID 30 Days Qty: 60 0RF donepezil 10 mg Tablet 10 mg PO BEDTIME 30 Days Qty: 30 0RF amlodipine 5 mg Tablet 5 mg PO BEDTIME 30 Days Qty: 30 0RF quetiapine 100 mg Tablet 100 mg PO BEDTIME 30 Days Qty: 30 0RF simvastatin 20 mg Tablet 20 mg PO BEDTIME 30 Days Qty: 30 0RF omeprazole 20 mg Capsule,Delayed Release(Dr/Ec) 20 mg PO BID@0630,1630 30 Days Qty: 60 0RF losartan 100 mg Tablet 100 mg PO DAILY 30 Days Qty: 30 0RF memantine 10 mg Tablet 10 mg PO BID 30 Days Qty: 60 0RF meloxicam 15 mg tablet 15 mg PO DAILY PRN (Reason: pain) sertraline 100 mg tablet 150 mg PO DAILY metoprolol tartrate 50 mg tablet 50 mg PO BID levothyroxine 112 mcg tablet 112 mcg PO DAILY@0600 ropinirole 0.5 mg tablet 1 mg PO BEDTIME vqnhfhfjwd-fiobnnkgicqkp-ifbg 50-300-40 mg capsule 1 cap PO BID PRN (Reason: Migraine Headache) melatonin 10 mg Tablet 10 mg PO BEDTIME azithromycin 500 mg tablet 500 mg PO DAILY 5 Days Qty: 5 0RF cefuroxime axetil 500 mg tablet 500 mg PO BID Qty: 10 0RF
--- NOTE | 2023-11-26 13:12 | ECG_ITS ---
Test Reason : LETHARGY Blood Pressure : / mmHG Vent. Rate : 060 BPM Atrial Rate : 060 BPM P-R Int : 146 ms QRS Dur : 104 ms QT Int : 426 ms P-R-T Axes : 068 -28 014 degrees QTc Int : 426 ms Normal sinus rhythm Minimal voltage criteria for LVH, may be normal variant ( Yoni product ) Nonspecific T wave abnormality Abnormal ECG When compared with ECG of 14-NOV-2023 13:48, No significant change was found Referred By: Silvino Mendoza Electronically Signed By:NABEEL OTOOLE MD
[2023-11-26 13:41] VITALS: BP 110/61; BP 125/41; PULSE 58; PULSE 59; RESP 15; TEMP 36.9; O2SAT 92; O2SAT 98; BMI 35.2
--- NOTE | 2023-11-26 14:00 | PC.NURSE ---
PT ARRIVED TO THE ED WITH STOOL/URINE INCONTINENCE. PT HAD A LOOSE LARGE BM.
--- NOTE | 2023-11-26 14:05 | PC.NURSE ---
PT GROIN/BUTTOCK IS VERY RED, CLEANSED WITH BARRIER CREAM APPLIED.
[2023-11-26 14:31] LABS: MANUAL DIFF FLAG NO
[2023-11-26 14:36] LABS: VBG Base Excess 4.1 mmol/L; VBG HCO3 30 mmol/L (22-26); VBG pCO2 52 mmHg; VBG pH 7.37 (7.32-7.43); VBG pO2 32 mmHg
[2023-11-26 14:36] LABS: Basophils Percent Auto 0.3 % (0-2); Eosinophils Percent Auto 0.2 % (0-4); Hematocrit 31.8 % (37.0-47.0); Hemoglobin 10.5 g/dl (12.0-16.0); Imm Gran Abs Auto 0.03 X10*3/uL (0.00-0.03); Imm Gran Pct Auto 0.5 % (0.0-0.4); Lymphocytes Percent Auto 16.2 % (20-40); Mean Corpuscular Hemoglobin 31.4 pg (27.0-33.0); Mean Corpuscular Volume 95.2 fL (80.0-98.0); Monocytes Absolute Auto 0.6 X10*3/uL (0.1-1.2); Monocytes Percent Auto 10.2 % (2-11); Neutrophils Absolute Auto 4.5 x10*3/uL (2.0-8.3); Neutrophils Percent Auto 72.6 % (45-73); Platelet Count 252 X10*3/uL (160-400); Red Blood Count 3.34 X10*6/uL (4.20-5.50); Red Cell Distribution Width 15.3 % (11.0-16.0); White Blood Count 6.2 X10*3/uL (4.8-10.8)
[2023-11-26 14:37] LABS: Venous Blood Gas Refer to POC result
[2023-11-26 14:49] LABS: Alanine Aminotransferase 15 U/L (0-31); Albumin Level 3.2 g/dL (3.5-5.0); Alkaline Phosphatase 71 U/L (39-117); Anion Gap 11 (12-20); Aspartate Amino Transferase 18 U/L (5-31); Bilirubin Total 0.5 mg/dL (0.0-1.0); Blood Urea Nitrogen 15 mg/dL (9-16); Calcium 8.3 mg/dL (8.4-10.2); Carbon Dioxide 28 mmol/L (22-29); Chloride 105 mmol/L (96-108); Creatinine Clr Calc Pharmacy 57.5; Estimated Glomerular Filt Rate > 60; Glucose Random 79 mg/dL (60-115); Potassium 3.4 mmol/L (3.3-5.1); Sodium 141 mmol/L (135-145); Total Protein 6.2 g/dL (6.5-8.0)
[2023-11-26 14:53] LABS: Troponin-I High Sensitivity 14.5 ng/L (<3.5-17.0)
[2023-11-26] MEDS: 0.9 % Sodium Chloride 1,000 ML 125 ML IVCONT (15:50)
[2023-11-26 15:59] VITALS: BP 148/55; PULSE 63; RESP 16; TEMP 36.7; O2SAT 89
--- NOTE | 2023-11-26 17:00 | PC.NURSE ---
PT'S SON-IN-LAW AT BEDSIDE. MD AT BEDSIDE. . PT/FAMILY AWARE OF PLAN OF CARE.
[2023-11-26] MEDS: Albuterol/Iprat 2.5/0.5MG 3 ML AMPUL.NEB INHALE (17:36)
[2023-11-26 17:37] VITALS: PULSE 61; RESP 18; O2SAT 91
[2023-11-26 17:54] VITALS: BP 132/46; PULSE 64; RESP 15; TEMP 37.2; O2SAT 92
[2023-11-26 20:57] LABS: Appearance Urine Clear; Color Urine Dark Yellow; Glucose Urine UA Negative (Negative); Leukocyte Esterase Urine Negative (Negative); Nitrite Urine Negative (Negative); Specific Gravity - Urine 1.025 (1.005-1.025); Urine Blood Negative (Negative); Urine Ketones 15 mg/dL (Negative); Urine Protein Trace mg/dL (Neg-Trace)
--- NOTE | 2023-11-26 21:02 | PC.NURSE ---
pt tolerated straight cath well ua sent to lab.
[2023-11-26 21:53] VITALS: BP 166/97; PULSE 62; RESP 16; TEMP 36.8; O2SAT 96
[2023-11-27 00:40] VITALS: BP 146/42; PULSE 64; RESP 12; O2SAT 94
--- NOTE | 2023-11-27 00:49 | PC.NURSE ---
ivf infusion delayed as pt continuosly bending arm. now ivf paused as pt ripped out IV. attempt to obtain new iv ongoing.
--- NOTE | 2023-11-27 01:14 | PC.NURSE ---
per dr tipton verbal order can discontinue fluids at this time.
[2023-11-27 06:10] VITALS: BP 167/86; PULSE 67; RESP 20; TEMP 36.4; O2SAT 96
--- NOTE | 2023-11-27 08:10 | PC.NURSE ---
Resumed care of patient, she is currently alert and oriented, bed alarm remains in place, all needs met at this time, call nix within reach. Awaiting PT/CM at this time
[2023-11-27 09:29] LABS: COVID-19 Test Positive (Negative); IDNOW Serial# 55D5AD1C
[2023-11-27 11:03] VITALS: BP 152/62; PULSE 72; RESP 12; TEMP 36.4; O2SAT 94
--- NOTE | 2023-11-27 11:57 | MHC.EDTECH ---
pt was 1 assisted to bathroom after being incontinent of stool, clean hospital gown was given, bed is cleaned, pt was brought back to bed and is now comfortable, rn aware.
[2023-11-27 12:45] VITALS: BP 153/63; PULSE 65; RESP 15; TEMP 36.8; O2SAT 94
[2023-11-27 13:36] VITALS: BP 153/63; PULSE 65; O2SAT 94
--- NOTE | 2023-11-27 14:23 | MHC.CM.ED ---
Received case management consult overnight. Patient came to the ER due to weakness. Found to be positive for Covid. Physical therapy eval completed. Home therapy is recommended. Spoke with patient's daughter/HCP, Lexy via telephone at [phone]. Lexy verifies patient was d/c'd from [facility] on 11/25. There was 1 case of Covid at the facility at the time of patient's d/c. Patient is active with [facility]. Lexy is on her way to the ER. Will transport patient home. Continue to monitor for d/c needs.
--- NOTE | 2023-11-27 14:54 | MHC.CM.ED ---
Met with daughter, Lexy at patient's bedside at daughters request. Lexy is concerned about patient's getting Covid. T/W explained her father was already exposed to it and will most likely test positive in 2 days. Lexy concerned about patient's low O2 sat last night. T/W explained patient has not required oxygen and O2 has not decreased. Symptom management discussed. Lexy requesting to see provider. Petty VILLAR aware. Continue to monitor for d/c needs.
== END 2023-11-27 15:34 | disposition home or self-care (01) ==
PROVIDERS: Physician Assistant; Emergency Provider Emergency Medicine; PCP Physician Assistant Medical
DX: R53.83 Other fatigue (principal); R94.31 Abnormal electrocardiogram [ECG] [EKG]; R26.2 Difficulty in walking, not elsewhere classified; R41.82 Altered mental status, unspecified; Z11.52 Encounter for screening for COVID-19; Z79.899 Other long term (current) drug therapy
CPT/HCPCS: 36415; 71045; 80053; 81003; 82803; 84484; 85025; 87040; 87635; 93005; 96360; 96361; 97162; 99285

== ENCOUNTER → 2023-11-26 13:12 | Outpatient (BNV) | payer MEDICARE, OTHER, SELFPAY | PROVIDERS: Emergency Provider Emergency Medicine; Visit Provider Internal Medicine Cardiovascular Disease | DX: R53.83 Other fatigue (principal) | CPT/HCPCS: 93010 ==

== ENCOUNTER 2024-08-21 07:57 | Emergency (ER) | payer MEDICARE, OTHER, MEDICAID, SELFPAY ==
--- NOTE | ~2024-08-21 | CT_ITS ---
EXAMINATION: CT HEAD WITHOUT CONTRAST CT CERVICAL SPINE WITHOUT CONTRAST CT FACIAL BONES WITHOUT CONTRAST CLINICAL INFORMATION: Head, facial, and neck trauma. COMPARISON: CT head dated 11/14/2023. CT cervical spine dated 09/25/2020. TECHNIQUE: Contiguous axial imaging was performed from the skull base to vertex without intravenous administration of contrast. Contiguous axial CT images of the cervical spine were obtained without contrast. Contiguous axial CT images of the facial bones were obtained without contrast. Sagittal and coronal reformats were provided and reviewed. This CT examination was performed using dose optimization techniques as appropriate, variously including the following: *Automated exposure control *Adjustment of mA and/or kV according to patient size (this includes techniques or standardized protocols for targeted exams where dose is matched to indication/reason for exam; i.e. extremities or head) *Use of iterative reconstruction technique DLP: 1362 mGy-cm FINDINGS: HEAD: There is no evidence of acute intracranial hemorrhage or territorial infarction. No abnormal mass effect or midline shift is seen. [place] to white matter differentiation is well preserved. No extra-axial fluid collections are identified. Mild prominence of the ventricles and sulci, unchanged and consistent with mild diffuse atrophy. Hypoattenuation of the periventricular white matter, unchanged and consistent with chronic microvascular ischemic disease. Focal soft tissue swelling/hematoma overlying the right frontal calvarium. No calvarial fracture. Partial opacification of the frontal sinuses and ethmoid air cells. The remaining visualized paranasal sinuses and mastoid air cells are clear. CERVICAL SPINE: The cervical lordosis is maintained. Minimal grade 1 anterolisthesis of C6 on C7, unchanged. No acute fracture or subluxation. No loss of vertebral body height. Multilevel loss of intervertebral disc height with degenerative endplate changes is redemonstrated. Multilevel bilateral facet arthropathy. No lytic or blastic osseous lesion. Unremarkable prevertebral soft tissues. No abnormal soft tissue mass or fluid collection. Status post left thyroidectomy. Visualized lung apices are clear. Mild multilevel bilateral neural foraminal stenosis, unchanged. FACIAL BONES: Mildly displaced right nasal bone fracture. No additional facial bone fracture. The pterygoid plates are intact. The zygomatic arches are intact. The lamina papyracea are intact. The orbital rims are intact. Soft tissue swelling overlying the right frontal calvarium. Partial opacification of the frontal sinuses and ethmoid air cells. There is minimal leftward deviation of the nasal septum. The ostiomeatal complexes are clear. The lamina papyracea are intact. The ethmoid roofs are symmetric. The carotid canals are normally covered by bone. There is no maxillary periapical disease. The mastoid air cells and visualized middle ear cavities are well-aerated. The orbits are normal. The TMJs are unremarkable. The imaged portions of the brain demonstrate no acute abnormality. CT/CT head/brain wo IV con IMPRESSION: HEAD: No acute intracranial hemorrhage or mass effect. Mild diffuse atrophy and chronic microvascular ischemic disease, unchanged. CERVICAL SPINE: No acute fracture or subluxation. Multilevel degenerative disc disease and bilateral facet arthropathy, unchanged. FACIAL BONES: Mildly displaced right nasal bone fracture. No additional facial bone fracture. Right frontal soft tissue swelling. Electronically signed by: Bandar Burns MD 08/21/2024 09:59 AM [facility]
[2024-08-21 08:03] VITALS: BP 162/94; PULSE 68; O2SAT 98
[2024-08-21 08:10] VITALS: BP 184/86; PULSE 61; RESP 20; TEMP 36.5; O2SAT 96; BMI 34.3
--- NOTE | 2024-08-21 08:17 | PC.NURSE ---
pt daughter at bedside whom is primary guardian/HCP and is an RN. patient lives alone with 24/7 care from daughter and son in law.
--- NOTE | 2024-08-21 08:32 | ED_ITS ---
HPI - Fall General Chief Complaint: Fall Stated Complaint: FALL ON DRIVEWAY, BLOODY NOSE PER EMS Time Seen by Provider: 08/21/24 08:05 Source: patient, family, EMS and old records reviewed Mode of arrival: EMS Limitations: other (dementia) History of Present Illness ED Provider: ROSA GARCIA Narrative: 89 yo female who lives at home but family is very observant she has alarms and cameras, HTN, levothyroxine, mood disorder, not on blood thinners, UTI who recently has had strong urine odor and is more argumentative with family. This AM she went outside and neighbors saw her walking to a car. Then she fell on the ground. The patient thinks she tripped - denies CP/SOB or feeling ill. She does not think she fell asleep. She cannot tell us where she was driving to. Patient was not on the ground for long as neighbors saw the event and called 911. She has trauma to the face and nose mostly. She is at her baseline currently. She denies extremity pain, rib pain, back pain. No chest or abdominal trauma. MD complaint: fall Onset (ago): minute(s) (POLLS OR SURVEYS INTERVIEWER) Fall from: standing Fall witnessed: yes, by bystander Place fall occurred: home Loss of consciousness: none Prolonged down time: no Symptoms prior to fall: none Context: tripped/slipped Location of injury: head and face Severity: moderate Quality: dull Associated symptoms (after fall): other (epistaxis that resolved out L nose) Related Data Home Medications ?Medication ?Instructions ?Recorded ?Confirmed multivitamin 1 tab PO DAILY 09/25/20 08/21/24 quetiapine 25 mg tablet 50 mg PO DAILY@0630 05/30/22 08/21/24 judysyhnvu-nwrpzujglktso-ekldbciy 1 cap PO BID PRN Migraine Headache 11/14/23 08/21/24 50 mg-300 mg-40 mg capsule levothyroxine 112 mcg tablet 112 mcg PO DAILY@0600 11/14/23 08/21/24 melatonin 10 mg tablet 10 mg PO BEDTIME 11/14/23 08/21/24 meloxicam 15 mg tablet 15 mg PO DAILY PRN pain 11/14/23 08/21/24 metoprolol tartrate 50 mg tablet 50 mg PO BID 11/14/23 08/21/24 ropinirole 0.5 mg tablet 1 mg PO BEDTIME 11/14/23 08/21/24 sertraline 100 mg tablet 150 mg PO DAILY@0630 11/14/23 08/21/24 Previous Rx's ?Medication ?Instructions ?Recorded amlodipine 5 mg tablet 5 mg PO BEDTIME 30 days #30 tabs 08/12/21 divalproex 250 mg tablet,delayed 250 mg PO BID 30 days #60 tabs 08/12/21 release donepezil 10 mg tablet 10 mg PO BEDTIME 30 days #30 tabs 08/12/21 losartan 100 mg tablet 100 mg PO DAILY 30 days #30 tabs 08/12/21 memantine 10 mg tablet 10 mg PO BID 30 days #60 tabs 08/12/21 omeprazole 20 mg capsule,delayed 20 mg PO BID@0630,1630 30 days #60 08/12/21 release caps quetiapine 100 mg tablet 100 mg PO BEDTIME 30 days #30 tabs 08/12/21 simvastatin 20 mg tablet 20 mg PO BEDTIME 30 days #30 tabs 08/12/21 Allergies Allergy/AdvReac Type Severity Reaction Status Date / Time Penicillins [PENICILLINS] Allergy Intermediate Headache Verified 08/21/24 08:13 penicillin V Allergy Unknown swelling Verified 08/21/24 08:13 procaine [From NOVOCAIN] Allergy Unknown Headache Verified 08/21/24 08:13 Review of Systems 2 Review of Systems: Constitutional : No Fever, No Chills, No Fatigue ENT/Mouth : No sore throat, No Rhinorrhea, pos nose pain Eyes: No Eye Pain, No Swelling, No Redness Cardiovascular : No Chest Pain, No SOB, No Dyspnea on Exertion Respiratory : No Cough, No Sputum Gastrointestinal : No Nausea, No Vomiting, No Diarrhea, No abdominal Pain Genitourinary : No Dysuria, No Urinary Frequency, No Hematuria, Musculoskeletal : No joint pain, No Myalgias, No Joint Swelling Skin : No Skin Lesions, No rash Neuro : No Weakness, No Numbness, No Dizziness, positive Headache All other systems reviewed and are negative [facility] Past Medical History Attestation statement: The following information was validated with the patient. Source: old records reviewed and obtained from family Medical History Hypothyroidism RLS (restless legs syndrome) GERD (gastroesophageal reflux disease) High cholesterol Hypertension Mood disorder Anxiety Dementia Social History Social History Household Members: Family Household Members Other:: 2 Housing: House Do you presently have visiting nurse or other home services: No Alcohol intake: unknown Comment: pt pulled out the left AC IV, camera in place/confusion Patient Tobacco Use Status: Never used Tobacco Advance Directives: Yes Advance Directives on File: Yes Advance Directives Date on File: 08/15/21 service: No Current occupational status: retired Sexual orientation: Straight/Heterosexual Physical Exam 2 Vital Signs: Vital Signs: Last Vital Signs Temp 97.7 F 08/21/24 08:10 Pulse 61 08/21/24 08:10 Resp 20 08/21/24 08:10 BP 184/86 H 08/21/24 08:10 Pulse Ox 96 08/21/24 08:10 O2 Del Method Room Air 08/21/24 08:10 BMI result Body Mass Index 34.3 Appearance: Alert. Oriented X2 at baseline. No acute distress. Eyes: Pupils equal, round and reactive to light. ENT: Pharynx normal. Teeth intact lower (has no upper), no hemotympanum, no nasal septal hematoma - dried blood L nares, has swelling and contusion with abrasion to tip of nose and has ecchymosis to nasal bridge, no open lacerations, R forehead has superficial abrasion as well as on R cheek Neck: Normal inspection. Neck supple. CVS: Normal heart rate and rhythm. Pulses normal. Chets: no ttp to ribs and no pain with deep breath and compression of ribs Respiratory: No respiratory distress. Breath sounds normal. Abdomen: Soft and nontender. Skin: Skin warm and dry. Normal skin color. Normal skin turgor. Extremities: No lower extremity edema. No pain with ROM testing of UE and LE bilatearally Neuro: Oriented X 2. No motor deficit. No sensory deficit. Medications Administered Discontinued Medications Generic Name Dose Route Start Last Admin Trade Name Freq PRN Reason Stop Dose Admin Acetaminophen 1,000 mg in 100 mls @ 400 mls/hr 08/21/24 08:07 08/21/24 08:39 Ofirmev IV 08/21/24 08:21 400 mls/hr ONCE ONE Administration Ondansetron HCl 4 mg 08/21/24 08:13 08/21/24 08:39 Ondansetron Hcl 4 Mg/2 Ml Vial IVPUSH 08/21/24 08:14 4 mg ONCE ONE Administration Medical Decision Making Medical Decision Making [facility] Narrative: 89 yo female who lives at home but family is very observant she has alarms and cameras, HTN, levothyroxine, mood disorder, not on blood thinners, UTI here with witnessed fall by neighbors not on ground long - she denies LOC she is at her baseline. She has facial bruising swelling abrasions and concern for nasal bone fracture it is not open. She has been more argumentative with family and no one is clear why she was leaving - I have ordered labs and UA for possible UTI has hx of same in past with UTI. Differential Diagnosis Differential Diagnoses: The differential diagnosis associated with the presentation includes UTI, facial trauma, nasal bone fracture, ICH Admission/Observation Consideration of admission/observation: Escalation of care including admission/observation considered at baseline, family wants to take her home nasal bone fracture can follow up with ENT after swelling goes down stable for DC Lab Data [facility] Lab Attestation statement: I reviewed the patient's lab results. 08/21/24 08:43 08/21/24 08:43 Labs: Lab Results 08/21/24 08/21/24 08/21/24 Range/Units 08:43 09:02 09:45 WBC 3.6 L (4.8-10.8) X10*3/uL RBC 3.72 L (4.20-5.50) X10*6/uL Hgb 11.4 L (12.0-16.0) g/dl Hct 33.8 L (37.0-47.0) % MCV 90.9 (80.0-98.0) fL MCH 30.6 (27.0-33.0) pg MCHC 33.7 (31.0-35.0) g/dl RDW 14.0 (11.0-16.0) % Plt Count 171 D (160-400) X10*3/uL MPV 9.8 (9.4-12.3) fL Immature Gran % (Auto) 0.3 (0.0-0.4) % Neut % (Auto) 53.5 (45-73) % Lymph % (Auto) 29.6 (20-40) % [place] % (Auto) 11.6 H (2-11) % Eos % (Auto) 4.2 H (0-4) % Baso % (Auto) 0.8 (0-2) % Lymph # (Auto) 1.1 L (1.2-4.9) X10*3/uL [place] # (Auto) 0.4 (0.1-1.2) X10*3/uL Eos # (Auto) 0.2 (0.0-0.4) X10*3/uL Baso # (Auto) 0.0 (0.0-0.2) X10*3/uL Abs Immat Gran (auto) 0.01 (0.00-0.03) X10*3/uL Absolute Neuts (auto) 1.9 L (2.0-8.3) x10*3/uL Absolute Nucleated RBC 0.000 (0.0-0.012) X10*3/uL Nucleated RBC % (auto) 0.0 (0.0-0.2) /100WBC PT 11.2 (10.9-12.4) SEC INR 1.0 (0.9-1.1) Sodium 140 (135-145) mmol/L Potassium 3.4 (3.3-5.1) mmol/L Chloride 108 (96-108) mmol/L Carbon Dioxide 26 (22-29) mmol/L Anion Gap 9 L (12-20) BUN 18 H (9-16) mg/dL Creatinine 0.69 (0.5-1.4) mg/dL Estim Creat Clear Calc 64.6 Estimated GFR > 60 Random Glucose 113 (60-115) mg/dL Calcium 8.3 L (8.4-10.2) mg/dL Total Creatine Kinase 40 (26-140) U/L Troponin I High Sens 7.2 D (<3.5-17.0) ng/L Urine Color Yellow Urine Appearance Clear Urine pH 7.5 (5.0-9.0) Ur Specific [place] 1.010 (1.005-1.025) Urine Protein Negative (Neg-Trace) mg/dL Urine Glucose (UA) Negative (Negative) mg/dL Urine Ketones Negative (Negative) mg/dL Urine Blood Negative (Negative) Urine Nitrite Negative (Negative) Ur Leukocyte Esterase Negative (Negative) Influenza Type A (PCR) NEGATIVE (Negative) Influenza Type B (PCR) NEGATIVE (Negative) RSV RNA Qual (PCR) NEGATIVE (Negative) SARS-CoV-2 RNA (RT-PCR) NEGATIVE (Negative) Independent Interpretation I performed an independent interpretation of an: EKG and CT Scan (+ nasal bone fracture) Interpretation: Rate: 59 Rhythm: sinus bradycardia [place]: left, LVH Normal P waves. Normal THOM. Normal QRS complex. ST T wave : inverted t waves V1, V2, no SAMPSON qTC: 453 prior studies: no change from 11/2023 The study has been interpreted contemporaneously by me. . Radiology Impression Discussion of test interpretation with radiology: I have reviewed the radiologist's reading. Independent Historian Clinical information obtained from an independent historian. History obtained from or confirmed by: EMS and Other (daughter) External Record Review External record reviewed: Outpatient record Discharge Plan Discharge Clinical Impression: Facial trauma, Closed fracture nasal bone, Head injury Patient Disposition: Home, Self-Care Instructions: Nasal Fracture (ED), Head Injury (ED), Facial Contusion (ED) Additional Instructions: EKG reassuring labs normal other than WBC count 3.6 history of same in past intermittent just make sure her doctor is aware UA no infection no bacteria or WBC cells no blood CT scans shows R mildly displaced nasal bone fracture - follow up with ENT after swelling goes down ENT [address] [phone] call to schedule appointment please limit nose blowing for one week , avoid aspirin for 3 days return for any worsening pain, confusion, vomiting > 2, nose bleeds that will not stop after pinching for 5 minutes apply neosporin to the abrasions for the next 5 days - monitor for redness, yellow drainage fevers she will get more bruising anticipate bilateral black eyes CT/CT head/brain wo IV con IMPRESSION: HEAD: No acute intracranial hemorrhage or mass effect. Mild diffuse atrophy and chronic microvascular ischemic disease, unchanged. CERVICAL SPINE: No acute fracture or subluxation. Multilevel degenerative disc disease and bilateral facet arthropathy, unchanged. FACIAL BONES: Mildly displaced right nasal bone fracture. No additional facial bone fracture. Right frontal soft tissue swelling. Prescriptions: No Action multivitamin Tablet 1 tab PO DAILY quetiapine 25 mg tablet 50 mg PO DAILY@0630 divalproex 250 mg Tablet,Delayed Release (Dr/Ec) 250 mg PO BID 30 Days Qty: 60 0RF donepezil 10 mg Tablet 10 mg PO BEDTIME 30 Days Qty: 30 0RF amlodipine 5 mg Tablet 5 mg PO BEDTIME 30 Days Qty: 30 0RF quetiapine 100 mg Tablet 100 mg PO BEDTIME 30 Days Qty: 30 0RF simvastatin 20 mg Tablet 20 mg PO BEDTIME 30 Days Qty: 30 0RF omeprazole 20 mg Capsule,Delayed Release(Dr/Ec) 20 mg PO BID@0630,1630 30 Days Qty: 60 0RF losartan 100 mg Tablet 100 mg PO DAILY 30 Days Qty: 30 0RF memantine 10 mg Tablet 10 mg PO BID 30 Days Qty: 60 0RF meloxicam 15 mg tablet 15 mg PO DAILY PRN (Reason: pain) sertraline 100 mg tablet 150 mg PO DAILY@0630 metoprolol tartrate 50 mg tablet 50 mg PO BID levothyroxine 112 mcg tablet 112 mcg PO DAILY@0600 ropinirole 0.5 mg tablet 1 mg PO BEDTIME sygipjtjyj-rcqljfnofkdyz-lfsb 50-300-40 mg capsule 1 cap PO BID PRN (Reason: Migraine Headache) melatonin 10 mg Tablet 10 mg PO BEDTIME Print Language: Telugu
--- NOTE | 2024-08-21 08:37 | ECG_ITS ---
Test Reason : FALL Blood Pressure : / mmHG Vent. Rate : 059 BPM Atrial Rate : 059 BPM P-R Int : 158 ms QRS Dur : 108 ms QT Int : 458 ms P-R-T Axes : 019 -26 022 degrees QTc Int : 453 ms Sinus bradycardia Minimal voltage criteria for LVH, may be normal variant ( [place] product ) Borderline ECG When compared with ECG of 26-NOV-2023 14:10, No significant change was found Referred By: Ashley Corral Electronically Signed By:NABEEL OTOOLE MD
[2024-08-21] MEDS: Acetaminophen 1,000 MG/100 ML PIGGYBACK 400 MG IV (08:39)
[2024-08-21] MEDS: ondansetron HCL 4 MG/2 ML VIAL IVPUSH (08:39)
[2024-08-21 08:46] LABS: MANUAL DIFF FLAG NO
[2024-08-21 08:49] LABS: Basophils Percent Auto 0.8 % (0-2); Eosinophils Absolute Auto 0.2 X10*3/uL (0.0-0.4); Eosinophils Percent Auto 4.2 % (0-4); Hematocrit 33.8 % (37.0-47.0); Hemoglobin 11.4 g/dl (12.0-16.0); Imm Gran Abs Auto 0.01 X10*3/uL (0.00-0.03); Imm Gran Pct Auto 0.3 % (0.0-0.4); Lymphocytes Absolute Auto 1.1 X10*3/uL (1.2-4.9); Lymphocytes Percent Auto 29.6 % (20-40); Mean Corpuscular HGB Conc 33.7 g/dl (31.0-35.0); Mean Corpuscular Hemoglobin 30.6 pg (27.0-33.0); Mean Corpuscular Volume 90.9 fL (80.0-98.0); Mean Platelet Volume 9.8 fL (9.4-12.3); Monocytes Absolute Auto 0.4 X10*3/uL (0.1-1.2); Monocytes Percent Auto 11.6 % (2-11); Neutrophils Absolute Auto 1.9 x10*3/uL (2.0-8.3); Neutrophils Percent Auto 53.5 % (45-73); Platelet Count 171 X10*3/uL (160-400); Red Blood Count 3.72 X10*6/uL (4.20-5.50); White Blood Count 3.6 X10*3/uL (4.8-10.8)
[2024-08-21 08:54] LABS: Prothrombin Time 11.2 SEC (10.9-12.4)
[2024-08-21 09:06] LABS: Anion Gap 9 (12-20); Blood Urea Nitrogen 18 mg/dL (9-16); Calcium 8.3 mg/dL (8.4-10.2); Carbon Dioxide 26 mmol/L (22-29); Chloride 108 mmol/L (96-108); Creatinine Clr Calc Pharmacy 64.6; Estimated Glomerular Filt Rate > 60; Glucose Random 113 mg/dL (60-115); Potassium 3.4 mmol/L (3.3-5.1); Sodium 140 mmol/L (135-145)
[2024-08-21 09:14] LABS: Troponin-I High Sensitivity 7.2 ng/L (<3.5-17.0)
[2024-08-21 09:51] LABS: Appearance Urine Clear; Color Urine Yellow; Glucose Urine UA Negative (Negative); Leukocyte Esterase Urine Negative (Negative); Nitrite Urine Negative (Negative); PH 7.5 (5.0-9.0); Urine Blood Negative (Negative); Urine Ketones Negative (Negative); Urine Protein Negative (Neg-Trace)
[2024-08-21 09:51] LABS: Influenza A PCR NEGATIVE (Negative); Influenza B PCR NEGATIVE (Negative); Resp Syncy Virus RNA Qual PCR NEGATIVE (Negative); SARS COV2 PCR INHOUSE NEGATIVE (Negative)
[2024-08-21 10:42] VITALS: BP 170/82; PULSE 66; RESP 18; TEMP 36.6; O2SAT 95
--- NOTE | 2024-08-21 10:48 | PHA.MEDREC ---
Pharmacy Consult ? Medication Reconciliation Pharmacy has completed the medication reconciliation. Spoke to pt's daughter/HCP on the phone. Called pharmacy which confirmed that patient is now on amlodipine 2.5 mg daily.
== END 2024-08-21 10:44 | disposition home or self-care (01) ==
PROVIDERS: Emergency Provider Emergency Medicine; PCP Physician Assistant Medical
DX: S02.2XXA Fracture of nasal bones, initial encounter for closed fracture (principal); R51.9 Headache, unspecified; M54.2 Cervicalgia; R00.1 Bradycardia, unspecified; W01.0XXA Fall on same level from slipping, tripping and stumbling without subsequent striking against object, initial encounter; Y93.89 Activity, other specified; Y92.89 Other specified places as the place of occurrence of the external cause; Y99.8 Other external cause status; Z51.81 Encounter for therapeutic drug level monitoring; Z03.818 Encounter for observation for suspected exposure to other biological agents ruled out; Z79.899 Other long term (current) drug therapy
CPT/HCPCS: 0241U; 36415; 70450; 70486; 72125; 80048; 81003; 82550; 84484; 85025; 85610; 93005; 96374; 99284; J0131; J2405

== ENCOUNTER → 2024-08-21 08:37 | Outpatient (BNV) | payer MEDICARE, OTHER, MEDICAID, SELFPAY | PROVIDERS: Emergency Provider Emergency Medicine; PCP Physician Assistant Medical; Visit Provider Internal Medicine Cardiovascular Disease | DX: R00.1 Bradycardia, unspecified (principal) | CPT/HCPCS: 93010 ==